=== PATIENT | male | born 1950 | race Caucasian/White ===

== ENCOUNTER → 2018-04-10 09:09 | Outpatient (CLI) | payer MEDICARE, OTHER, SELFPAY ==
[2018-04-10 10:37] LABS: Alanine Aminotransferase 41 IU/L (21-72); Albumin 4.3 g/dL (3.5-5.0); Albumin Globulin Ratio 1.5 (1.0-2.8); Alkaline Phosphatase 64 U/L (38-126); Aspartate Aminotransferase 35 IU/L (17-59); BUN Creatinine Ratio 22.9 (6-22); Bilirubin Total 0.8 mg/dL (0.2-1.3); Blood Urea Nitrogen 16 mg/dL (9-20); Calcium 9.3 mg/dL (8.4-10.2); Carbon Dioxide 34 mmol/L (22-32); Chloride 98 mmol/L (98-107); Cholesterol 138 mg/dL (140-199); Estimated Glomerular Filt Rate > 60.0 mL/min (>60); Globulin 2.8 g/dL (1.7-4.1); Glucose 129 mg/dL (80-110); HDL Cholesterol 37 mg/dL (40-60); HEMOLYSIS < 15 (0-50); LDL Cholesterol Calculated 81 mg/dL (<100); Potassium 4.2 mmol/L (3.4-5.1); Sodium 142 mmol/L (137-145); Total Protein 7.1 g/dL (6.3-8.2); Triglycerides 98 mg/dL (35-150)
[2018-04-10 10:44] LABS: Hemoglobin A1C% w Est Avg Glu 5.5 % (4.0-6.0)
== END ==
PROVIDERS: Visit Provider Internal Medicine
DX: I10 Essential (primary) hypertension (principal); E11.22 Type 2 diabetes mellitus with diabetic chronic kidney disease; E78.00 Pure hypercholesterolemia, unspecified
CPT/HCPCS: 36415; 80053; 80061; 83036

== ENCOUNTER → 2018-11-06 08:04 | Outpatient (CLI) | payer MEDICARE, OTHER, SELFPAY ==
[2018-11-06 09:25] LABS: Hemoglobin A1C% w Est Avg Glu 5.5 % (4.0-6.0)
[2018-11-06 09:41] LABS: Alanine Aminotransferase 33 IU/L (21-72); Aspartate Aminotransferase 41 IU/L (17-59); BUN Creatinine Ratio 24.3 (6-22); Blood Urea Nitrogen 17 mg/dL (9-20); Calcium 9.5 mg/dL (8.4-10.2); Carbon Dioxide 35 mmol/L (22-32); Chloride 97 mmol/L (98-107); Cholesterol 143 mg/dL (140-199); Estimated Glomerular Filt Rate > 60.0 mL/min (>60); Glucose 107 mg/dL (80-110); HDL Cholesterol 42 mg/dL (40-60); HEMOLYSIS < 15 (0-50); LDL Cholesterol Calculated 78 mg/dL (<100); Potassium 4.9 mmol/L (3.4-5.1); Sodium 141 mmol/L (137-145); Triglycerides 117 mg/dL (35-150)
== END ==
PROVIDERS: PCP Internal Medicine; Visit Provider Internal Medicine
DX: I10 Essential (primary) hypertension (principal); E11.9 Type 2 diabetes mellitus without complications; E78.5 Hyperlipidemia, unspecified
CPT/HCPCS: 36415; 80048; 80061; 83036; 84450; 84460

== ENCOUNTER → 2019-05-25 08:23 | Outpatient (CLI) | payer MEDICARE, OTHER, SELFPAY ==
[2019-05-25 09:03] LABS: Hemoglobin A1C% w Est Avg Glu 5.9 % (4.0-6.0)
[2019-05-25 09:07] LABS: Alanine Aminotransferase 41 IU/L (<50); Aspartate Aminotransferase 42 IU/L (17-59); BUN Creatinine Ratio 22.5 (6-22); Blood Urea Nitrogen 18 mg/dL (9-20); Carbon Dioxide 34 mmol/L (22-32); Chloride 96 mmol/L (98-107); Cholesterol 129 mg/dL (140-199); Estimated Glomerular Filt Rate > 60.0 mL/min (>60); Glucose 132 mg/dL (80-110); HDL Cholesterol 28 mg/dL (40-60); HEMOLYSIS < 15 (0-50); LDL Cholesterol Calculated 80 mg/dL (<100); Potassium 4.4 mmol/L (3.4-5.1); Sodium 141 mmol/L (137-145); Triglycerides 103 mg/dL (35-150)
== END ==
PROVIDERS: PCP Internal Medicine; Visit Provider Internal Medicine
DX: I10 Essential (primary) hypertension (principal); E11.9 Type 2 diabetes mellitus without complications; E78.5 Hyperlipidemia, unspecified
CPT/HCPCS: 36415; 80048; 80061; 83036; 84450; 84460

== ENCOUNTER → 2019-10-13 08:59 | Outpatient (CLI) | payer MEDICARE, OTHER, SELFPAY ==
[2019-10-13 11:28] LABS: Prostate Specific Antigen 3.07 ng/mL (0.10-4.00)
== END ==
PROVIDERS: PCP Internal Medicine; Referring Provider Radiology Radiation Oncology; Visit Provider Radiology Radiation Oncology
DX: C61 Malignant neoplasm of prostate (principal)
CPT/HCPCS: 36415; 84153

== ENCOUNTER → 2019-11-25 08:01 | Outpatient (CLI) | payer MEDICARE, OTHER, SELFPAY ==
[2019-11-25 10:04] LABS: Hemoglobin A1C% w Est Avg Glu 5.8 % (4.0-6.0)
[2019-11-25 10:08] LABS: Alanine Aminotransferase 39 IU/L (<50); Albumin 4.5 g/dL (3.5-5.0); Albumin Globulin Ratio 1.5 (1.0-2.8); Alkaline Phosphatase 76 U/L (38-126); Aspartate Aminotransferase 46 IU/L (17-59); BUN Creatinine Ratio 23.4 (6-22); Bilirubin Total 1.2 mg/dL (0.2-1.3); Blood Urea Nitrogen 18 mg/dL (9-20); Calcium 9.5 mg/dL (8.4-10.2); Carbon Dioxide 35 mmol/L (22-32); Chloride 97 mmol/L (98-107); Cholesterol 135 mg/dL (140-199); Estimated Glomerular Filt Rate > 60.0 mL/min (>60); Globulin 3.1 g/dL (1.7-4.1); Glucose 124 mg/dL (80-110); HDL Cholesterol 32 mg/dL (40-60); HEMOLYSIS 34 (0-50); LDL Cholesterol Calculated 67 mg/dL (<100); Potassium 4.2 mmol/L (3.4-5.1); Sodium 138 mmol/L (137-145); Total Protein 7.6 g/dL (6.3-8.2); Triglycerides 179 mg/dL (35-150)
== END ==
PROVIDERS: PCP Internal Medicine; Referring Provider Internal Medicine; Visit Provider Internal Medicine
DX: E78.5 Hyperlipidemia, unspecified (principal); I10 Essential (primary) hypertension; E11.9 Type 2 diabetes mellitus without complications
CPT/HCPCS: 36415; 80053; 80061; 83036

== ENCOUNTER → 2020-03-30 08:06 | Outpatient (CLI) | payer MEDICARE, OTHER, SELFPAY ==
[2020-03-30 10:08] LABS: Prostate Specific Antigen 2.05 ng/mL (0.10-4.00)
== END ==
PROVIDERS: PCP Internal Medicine; Referring Provider Radiology Radiation Oncology; Visit Provider Radiology Radiation Oncology
DX: C61 Malignant neoplasm of prostate (principal)
CPT/HCPCS: 36415; 84153

== ENCOUNTER → 2020-10-03 08:33 | Outpatient (CLI) | payer MEDICARE, OTHER, SELFPAY ==
[2020-10-03 09:44] LABS: Prostate Specific Antigen 1.48 ng/mL (0.10-4.00)
== END ==
PROVIDERS: PCP Internal Medicine; Referring Provider Radiology Radiation Oncology; Visit Provider Radiology Radiation Oncology
DX: C61 Malignant neoplasm of prostate (principal)
CPT/HCPCS: 36415; 84153

== ENCOUNTER → 2021-02-28 12:32 | Outpatient (CLI) | payer MEDICARE, OTHER, SELFPAY | PROVIDERS: PCP Internal Medicine; Referring Provider Radiology Radiation Oncology; Visit Provider Radiology Radiation Oncology | DX: C61 Malignant neoplasm of prostate (principal) | CPT/HCPCS: 36415; 84153 ==

== ENCOUNTER 2022-04-09 10:15 | Emergency (ER) | payer MEDICARE, OTHER, SELFPAY ==
[2022-04-09] VITALS (12 sets, daily range): BP systolic 117–159; BP diastolic 58–85; PULSE 67–88; RESP 16–18; TEMP 36.6; O2SAT 92–99; BMI 34.7
--- NOTE | 2022-04-09 11:19 | DI.CT.S_ITS ---
PROCEDURE: CT ABDOMEN PELVIS WO/W CON INDICATIONS: painless hematuria TECHNIQUE: Optional 5 mm thick noncontrast images acquired from the diaphragm to the symphysis pubis. After the administration of intravenous contrast, 5 mm thick images acquired from the diaphragm to the symphysis pubis after a 10-minute delay. 2 mm thick coronal and sagittal reformats were then performed of the kidneys and ureters. For radiation dose reduction, the following was used: automated exposure control, adjustment of mA and/or kV according to patient size. COMPARISON: [facility], CT, CT DIANE, 04/21/2019, 13:00. [facility], CT, PE STUDY (CTA CHEST), 08/17/2012, 11:05. FINDINGS: Image quality: Excellent. Lung bases: Bibasilar atelectasis versus scarring. Moderate to severe coronary artery calcifications. Urinary system: Both kidneys are normal in size, without hydronephrosis or nephrolithiasis on pre-contrast images. No perinephric fat stranding. There is normal bilateral renal enhancement. Renal calyces appear normal in morphology when filled with contrast. Opacified portions of both ureters demonstrate normal caliber. The prostate is enlarged. A Franklin catheter is present in the bladder. There is diffuse bladder wall thickening. Other solid organs: Liver is normal in size and enhancement. Gallbladder is surgically absent . Biliary system is non dilated. Pancreas enhances normally. Spleen is normal in size and enhancement. No adrenal nodules. Peritoneum and bowel: Bowel loops demonstrate normal wall thickness and caliber. No free fluid or air. Nodes and vessels: No retroperitoneal or mesenteric adenopathy by size criteria. Aorta and inferior vena cava are normal in size. Abdominal wall: No ventral hernias. Pelvis: No pathologic free pelvic fluid. No inguinal hernias or adenopathy. Bones: No suspicious bony lesions. No vertebral body compression fractures. IMPRESSION: 1. Enlarged prostate with Franklin catheter in the bladder. The bladder is decompressed with diffuse bladder wall thickening. There are inflammatory change in the adjacent fat. Findings are consistent with cystitis, potentially chronic. 2. No renal stones, ureteral stones, hydronephrosis, or renal masses. 3. Moderately severe coronary artery calcifications. Dictated by: Balta Evans M.D. on 04/09/2022 at 14:46 Approved by: Balta Evans M.D. on 04/09/2022 at 14:51
[2022-04-09] MEDS: LIDOCAINE 2% (GLYDO) 6 ML GEL TOP (11:33)
[2022-04-09 11:37] LABS: Add Manual Diff / Slide Review NO; Basophils Absolute Auto 0 /uL (0-100); Basophils Percent Auto 0.2 % (0-2); Eosinophils Absolute Auto 200 /uL (0-450); Eosinophils Percent Auto 3.4 % (2-4); Hematocrit 40.8 % (41-53); Hemoglobin 13.5 g/dL (13.5-17.5); Lymphocytes Absolute Auto 800 /uL (1100-4500); Lymphocytes Percent Auto 11.9 % (25-40); Mean Corpuscular HGB Conc 33.2 % (30-36); Mean Corpuscular Hemoglobin 31.2 PG (26-34); Mean Corpuscular Volume 94.1 fL (80-100); Monocytes Absolute Auto 400 /uL (0-900); Monocytes Percent Auto 5.6 % (3-14); Neutrophils Absolute Auto 5000 /uL (1500-7000); Neutrophils Percent Auto 78.9 % (50-75); Platelet Count 205 X10^3/uL (150-400); Red Blood Cell Count 4.34 X10^6/uL (4.5-5.9); Red Cell Distribution Width 14.2 % (11.6-14.8); White Blood Cell Count 6.3 X10^3/uL (4.5-11.0)
--- NOTE | 2022-04-09 11:40 | ED_ITS ---
HPI - Male Genitourinary General Chief complaint: Urogenital-Male Stated complaint: peeing blood t-2 Time Seen by Provider: 04/09/22 10:19 Source: patient Mode of arrival: Ambulatory History of Present Illness HPI Narrative: 72-year-old male former smoker with COPD on home oxygen, hypertension, hyperlipidemia and diabetes with prior history of prostate cancer presents with a chief complaint of painless hematuria for the past few days. He states he has been passing nothing but blood clots. He denies fever chills. He is not dizzy nor weak or lightheaded. He denies any chest pain, shortness of breath or cough. He denies any abdominal pain, constipation or diarrhea. He had last received radiation therapy at [facility] for prostate issues but is not currently in touch with Urology. He does not take any blood thinners Related Data Home Medications Medication Instructions Recorded Confirmed albuterol sulfate 90 mcg/actuation 2 puff INH Q4HP ##8.5 12/20/11 aerosol inhaler (Proventil HFA) bupropion HCl 200 mg tablet,12 hr 150 mg PO Q DAY ##0 12/20/11 04/09/22 sustained-release (Wellbutrin SR) lisinopril 10 1 tab PO QDAY ##0 12/20/11 mg-hydrochlorothiazide 12.5 mg tablet atorvastatin 20 mg tablet 20 mg PO BEDTIME 04/09/22 04/09/22 glipizide 10 mg tablet, extended 10 mg PO DAILY 04/09/22 04/09/22 release 24 hr tamsulosin 0.4 mg capsule 0.4 mg PO BEDTIME 04/09/22 04/09/22 Previous Rx's Medication Instructions Recorded cephalexin 500 mg capsule 500 mg PO BID #14 caps 04/09/22 finasteride 5 mg tablet 5 mg PO DAILY #30 tabs 04/09/22 finasteride 5 mg tablet 5 mg PO DAILY #30 tabs 04/09/22 oxybutynin chloride 5 mg tablet 5 mg PO BID-TID PRN bladder spasms 04/09/22 #20 tabs Allergies Allergy/AdvReac Type Severity Reaction Status Date / Time lisinopril Allergy Unknown Verified 04/09/22 11:18 Sulfa (Sulfonamide Allergy Unknown Verified 04/09/22 11:18 Antibiotics) [SULFA (SULFONAMIDE ANTIBIOTICS)] Review of Systems Review of Systems Narrative: GENERAL: Denies chills, fatigue, malaise, fever, sweats. HEENT: Denies sinus pain, ear pain, sore throat, difficulty swallowing, dizziness. RESPIRATORY: Denies dyspnea, cough, wheezing, hemoptysis, sputum. CARDIOVASCULAR: Denies chest pain, palpitations, orthopnea, edema, GASTROINTESTINAL: Denies nausea, vomiting, abdominal pain, diarrhea, constipation, melena. : See HPI MUSCULOSKELETAL: denies weakness, joint pain, or bony pain SKIN: Denies rash, skin lesions, or other NEUROLOGIC: Denies weakness, headache, numbness, change in speech, confusion, seizures, incoordination. PSYCHIATRIC: No concerning psychosocial issues. 12 point review of systems is negative except for those stated above Patient History Medical History (Updated 04/09/22 @ 18:27 by Luigi Soares MD) COPD (chronic obstructive pulmonary disease) Depression Excessive daytime sleepiness History of brachytherapy History of prostate cancer Hypertension Non-STEMI (non-ST elevated myocardial infarction) (~11/2011) Obstructive sleep apnea of adult Primary insomnia Snoring Type 2 diabetes mellitus Social History Smoking Status: Former smoker Smoking Status: Former smoker alcohol intake frequency: 0-2 drinks per day Substance Use Type: does not use Exam Narrative Exam Narrative: GENERAL: [72] year old patient appears stated age. Well-developed patient, in mild distress. HEAD: Atraumatic. Normocephalic. EYES: Pupils equal round and reactive. Extraocular motions intact. No scleral icterus. No injection or drainage. ENT: Nose without bleeding, purulent drainage. Throat without erythema, tonsillar hypertrophy or exudate. Airway patent. NECK: Trachea midline. Non tender CARDIOVASCULAR: Regular rate and rhythm without murmurs, gallops, or rubs. RESPIRATORY: Clear to auscultation. Breath sounds equal bilaterally. No wheezes, rales, or rhonchi. GASTROINTESTINAL: Abdomen soft, non-tender, nondistended. EXTREMITIES: No edema or joint tenderness. BACK: Nontender without deformity or crepitance. No flank tenderness. NEURO: AOx3. SKIN: No rash or erythema of visible areas Initial Vital Signs Initial Vital Signs: Vital Signs Temperature 97.8 F 04/09/22 10:45 Pulse Rate 80 04/09/22 10:45 Respiratory Rate 18 04/09/22 10:45 Blood Pressure 117/65 04/09/22 10:45 Pulse Oximetry 94 04/09/22 10:45 Oxygen Delivery Method 04/09/22 10:45 Oxygen Flow Rate 2 04/09/22 10:45 Course Orders Ordered: ED Orders 04/09/22 11:19 IVP [CT abdomen pelvis wo/w con] Stat 04/09/22 11:25 Complete Blood Count AUTO DIFF Stat Comprehensive Metabolic Panel Stat 04/09/22 11:41 Ictotest Urine Stat UA dip and micro [Urinalysis and Microscopic] Stat Urine Culture Stat Discontinued Medications Ceftriaxone Sodium 2,000 mg/ (Sodium Chloride) 100 mls @ 200 mls/hr IV NOW ONE Stop: 04/09/22 17:29 Last Infusion: 04/09/22 17:54 Dose: 0 mls/hr Documented By: Admin: 04/09/22 16:56 Dose: 200 mls/hr Documented By: DIRK Lidocaine HCl (Lidocaine 2% (Glydo) 6 Ml Gel) 6 ml TOP NOW ONE Stop: 04/09/22 11:20 Last Admin: 04/09/22 11:33 Dose: 6 ml Documented By: DIRK Lidocaine HCl (Lidocaine 2% Inj Mdv 20ml) 1 ml SUBCUT NOW ONE Stop: 04/09/22 16:48 Last Admin: 04/09/22 16:54 Dose: Not Given Documented By: DIRK Lidocaine HCl (Lidocaine 2% (Glydo) 6 Ml Gel) 12 ml TOP NOW ONE Stop: 04/09/22 17:17 Last Admin: 04/09/22 17:55 Dose: 12 ml Documented By: DIRK Lorazepam (Lorazepam 2 Mg/Ml Inj) 1 mg IV NOW ONE Stop: 04/09/22 16:48 Last Admin: 04/09/22 16:54 Dose: Not Given Documented By: DIRK Oxybutynin (Oxybutynin 5 Mg Tablet) 5 mg PO NOW ONE Stop: 04/09/22 18:04 Last Admin: 04/09/22 18:33 Dose: 5 mg Documented By: DIRK Reevaluation(s) Reevaluation #1: Three-way Franklin catheter placed in order to irrigate. Reevaluation #2: Thankfully urine has pinked up a bit, however as soon as we stopped the irrigant his clots occlude the outlet again. He has had 9 L of sterile water Consultations Consultation #1: Dr. Rodger forrest, will see patient at bedside. Please see his note for details Time: 16:33 Vital Signs Vital signs: Vital Signs - 8 hr 04/09/22 12:34 04/09/22 12:36 04/09/22 12:36 Pulse Rate 67 67 Respiratory Rate 16 Blood Pressure 123/68 Pulse Oximetry 97 97 Oxygen Delivery Method Room Air 04/09/22 15:06 04/09/22 15:06 04/09/22 15:30 Pulse Rate 72 Respiratory Rate 16 Blood Pressure 125/58 L 154/71 H Pulse Oximetry 97 Oxygen Delivery Method 04/09/22 16:01 04/09/22 16:30 04/09/22 17:38 Pulse Rate 70 Respiratory Rate 16 Blood Pressure 118/74 126/85 131/64 Pulse Oximetry 99 Oxygen Delivery Method Room Air 04/09/22 17:38 04/09/22 18:00 04/09/22 18:01 Pulse Rate 84 68 70 Respiratory Rate 16 Blood Pressure Pulse Oximetry 92 99 98 Oxygen Delivery Method Room Air 04/09/22 18:01 Pulse Rate Respiratory Rate Blood Pressure 159/72 H Pulse Oximetry Oxygen Delivery Method MDM - Male Genitourinary Lab Data Result diagrams: 04/09/22 11:25 04/09/22 11:25 Labs: Lab Results 04/09/22 04/09/22 04/09/22 Range/Units 11:25 11:25 11:41 WBC 6.3 (4.5-11.0) X10^3/uL RBC 4.34 L (4.5-5.9) X10^6/uL Hgb 13.5 (13.5-17.5) g/dL Hct 40.8 L (41-53) % MCV 94.1 (80-100) fL MCH 31.2 (26-34) PG MCHC 33.2 (30-36) % RDW 14.2 (11.6-14.8) % Plt Count 205 (150-400) X10^3/uL Neut % (Auto) 78.9 H (50-75) % Lymph % (Auto) 11.9 L (25-40) % [place] % (Auto) 5.6 (3-14) % Eos % (Auto) 3.4 (2-4) % Baso % (Auto) 0.2 (0-2) % Neut # (Auto) 5000 (7676-8573) /uL Lymph # (Auto) 800 L (2812-8623) /uL [place] # (Auto) 400 (0-900) /uL Eos # (Auto) 200 (0-450) /uL Baso # (Auto) 0 (0-100) /uL Sodium 142 (137-145) mmol/L Potassium 4.2 (3.4-5.1) mmol/L Chloride 91 L (98-107) mmol/L Carbon Dioxide 39 H (22-32) mmol/L BUN 23 H (9-20) mg/dL Creatinine 0.91 (0.66-1.25) mg/dL Estimated GFR > 60 (>60) mL/min BUN/Creatinine Ratio 25.3 H (6-22) Glucose 139 H (80-110) mg/dL Calcium 9.0 (8.4-10.2) mg/dL Total Bilirubin 0.9 (0.2-1.3) mg/dL AST 29 (17-59) IU/L ALT 32 (<50) IU/L Alkaline Phosphatase 98 (38-126) U/L Total Protein 8.0 (6.3-8.2) g/dL Albumin 4.3 (3.5-5.0) g/dL Globulin 3.7 (1.7-4.1) g/dL Albumin/Globulin Ratio 1.2 (1.0-2.8) Urine Color Red Urine Appearance Turbid Urine pH 6.5 (4.5-8.0) Ur Specific [place] 1.025 (1.000-1.035) Urine Protein 3+ H (Negative) Urine Glucose (UA) Trace H (Negative) g/dL Urine Ketones Trace H (NEGATIVE) Urine Occult Blood 3+ H (Negative) Urine Nitrate Positive H (Negative) Urine Bilirubin 2+ H (NEGATIVE) Ur Bilirubin Confirm Negative (Negative) Urine Urobilinogen 1.0 (0.2) E.U./dL Ur Leukocyte Esterase 1+ H (NEGATIVE) Urine RBC >100/hpf H (0-5/HPF) Urine WBC 5-10/hpf H (0-5/HPF) Urine Bacteria Many (>30) H (None) Ur Culture Indicated? Specimen cultured MDM Narrative Medical decision making narrative: 72-year-old male with history of prostate cancer presents with painless hematuria. Multiple diagnoses considered including urinary tract infection, genitourinary mass, vs other. Patient is hemodynamically stable, urine does show evidence of infection. CT IVP demonstrates inflammatory change of bladder consistent with cystitis and of prostate, no evidence of active bleed or clot within the bladder. Serum labs are unremarkable. Patient initially had 18 Spanish three-way with irrigation of upwards of 9 L of sterile water, urology consulted and saw patient at bedside. They have a plan to see him in the office in short order. He is given return precautions by Urology and understands this plan Discharge Plan Departure Patient Disposition: Home Clinical Impression: Hematuria UTI (urinary tract infection) Qualifiers: Urinary tract infection type: acute cystitis Hematuria presence: with hematuria Qualified Code(s): N30.01 - Acute cystitis with hematuria Instructions: DI for Hematuria Activity Restrictions/Additional Instructions: *You have been diagnosed with [hematuria] *What to do: *Please continue to take your regular medications as directed. *Please follow up with your primary care provider in 2-3 days, call for an appointment. Let them know you were seen in the Emergency Department and that we ask that you be seen in follow up. We will electronically transmit a record of today's note if your PCP is in our system * as we discussed, I have given you contact information for local urology please call them today or tomorrow, let them know you were seen in the emergency dep artment and we would like you seen in follow-up *Return to Emergency Department if you should have any new, worsening or concerning symptoms, such as [fever greater than 101 F, shaking chills, worse apoorva pain, persistent vomiting or other bothersome symptoms] Prescriptions: New finasteride 5 mg tablet 5 mg PO DAILY Qty: 30 0RF cephalexin 500 mg capsule 500 mg PO BID Qty: 14 0RF finasteride 5 mg tablet 5 mg PO DAILY Qty: 30 0RF oxybutynin chloride 5 mg tablet 5 mg PO BID-TID PRN (Reason: bladder spasms) Qty: 20 0RF No Action lisinopril-hydrochlorothiazide 10 MG/12.5 MG tablet 1 tab PO QDAY Qty: 0 bupropion HCl [Wellbutrin SR] 200 MG tablet extended release 12 hr 150 mg PO Q DAY Qty: 0 albuterol sulfate [Proventil HFA] 90 MCG/PUFF HFA aerosol inhaler 2 puff INH Q4HP Qty: 8.5 tamsulosin 0.4 mg capsule 0.4 mg PO BEDTIME Label Comments: TAKE ONE CAPSULE BY MOUTH AT BEDTIME atorvastatin 20 mg tablet 20 mg PO BEDTIME Label Comments: TAKE ONE TABLET BY MOUTH ONE TIME DAILY glipizide 10 mg tablet extended release 24hr 10 mg PO DAILY Label Comments: TAKE ONE TABLET BY MOUTH ONE TIME DAILY Referrals: Miscellaneous,Doctor, [Primary Care Provider] - Luigi Soares MD [Physician] - Visit Report Forms: Patient Portal/API
[2022-04-09 12:31] LABS: Appearance Urine UA TURBID; Bilirubin Urine UA 2+ (NEGATIVE); Glucose Urine UA TRACE g/dL (Negative); Ketones Urine UA TRACE (NEGATIVE); Leukocyte Esterase Urine UA 1+ (NEGATIVE); Nitrite Urine UA POSITIVE (Negative); Occult Blood Urine UA 3+ (Negative); Protein Urine UA 3+ (Negative); Specific Gravity Urine UA 1.025 (1.000-1.035); pH Urine UA 6.5 (4.5-8.0)
[2022-04-09 12:36] LABS: Bacteria Urine Many (>30); Color Urine UA RED; Culture Indicated Urine Specimen Cultured; Ictotest Urine Negative (Negative); RBC Urine >100/HPF (0-5/HPF); WBC Urine 5-10/HPF (0-5/HPF)
[2022-04-09 12:54] LABS: BUN Creatinine Ratio 25.3 (6-22); Bilirubin Total 0.9 mg/dL (0.2-1.3); Blood Urea Nitrogen 23 mg/dL (9-20); Carbon Dioxide 39 mmol/L (22-32); Chloride 91 mmol/L (98-107); Estimated Glomerular Filt Rate > 60 mL/min (>60); Glucose 139 mg/dL (80-110); HEMOLYSIS < 15 (0-50); Potassium 4.2 mmol/L (3.4-5.1); Sodium 142 mmol/L (137-145)
[2022-04-09 12:55] LABS: Alanine Aminotransferase 32 IU/L (<50); Albumin 4.3 g/dL (3.5-5.0); Albumin Globulin Ratio 1.2 (1.0-2.8); Alkaline Phosphatase 98 U/L (38-126); Aspartate Aminotransferase 29 IU/L (17-59); Globulin 3.7 g/dL (1.7-4.1)
--- NOTE | 2022-04-09 12:58 | PC.NURSE ---
Answered call fernandes, pt c/o pain and leaking around catheter site. Noted clot in catheter. Hand expressed w/ syringe large clot x 3. Irrigation resumed w/o difficulty.
--- NOTE | 2022-04-09 13:13 | PC.NURSE ---
Again catheter blocked by large clots. Hand expressed w/ catheter tip syringe for large clots. Restarted irrigation w/ increased flow noted out of catheter.
--- NOTE | 2022-04-09 16:43 | PC.NURSE ---
Bladder irrigation off. Catheter clotted off causing discomfort. Hand irrigated large clot. Bladder irrigation started. Pain relieved after clot removed.
[2022-04-09] MEDS: cefTRIAXone 2,000 MG in SODIUM CHLORIDE 0.9% 100 ML 200 MG IV (16:56)
[2022-04-09] MEDS: LIDOCAINE 2% (GLYDO) 6 ML GEL 12 ML TOP (17:55)
--- NOTE | 2022-04-09 18:11 | PC.NURSE ---
#[address] removed [address] Soares (Urology) who then placed 24 fr w/ 30 cc balloon. He irrigated and positioned to stop bleeding. Pt tolerated well.
--- NOTE | 2022-04-09 18:18 | PM.CN ---
History of Present Illness Consult details Date Patient Seen: 04/09/22 Time Patient Seen: 18:18 Chief complaint: peeing blood t-2 Reason for consult: Bladder irrigation unable to clear clots Requesting provider: Omero Torres Narrative: Was asked to come see this 72-year-old male who presented with complaints of being unable to urinate and having gross hematuria with clots. Patient reports this is been going on for quite some time he is only been able to urinate a little bit. He presented to the emergency department with complaint of lower abdominal pain and had an 18 [place] catheter inserted by staff and was irrigated. This would then clot up. By report today it irrigated with 9 L of sterile water. Patient has a history of prostate carcinoma treated by brachytherapy approximately 2 years ago. He reports his most recent PSA was less than 0.069. He is followed by radiation oncology at [facility]. Patient has never had anything like this before and denies any heavy vigorous or strenuous activity. He also denies any constipation or straining. Patient takes a will 81 mg aspirin but is not on any other anticoagulants. His urine does appear infected and he would received a dose of Rocephin. Patient denies any other surgery on the penis testicles prostate or bladder. Patient also denies history of kidney stones. Patient did have a CT scan which is reviewed and reviewed with the patient which shows no worrisome findings for occult malignancy within the bladder and only changes consistent with radiation, cystitis and perhaps some clot within the bladder. The patient's 18 [place] catheter was exchanged for a 24 [place] catheter with sterile technique instilling viscous lidocaine within the urethra and allowing time for the block to set up. Once the catheter was in place it was a 30 cc balloon was inflated with 30 cc of sterile water. Sterile water was then employed to irrigate the bladder and a small amount of clot was evacuated and then the urine cleared quite quickly. The catheter was placed to gravity drainage and a blush urine was noted at that point it was re-irrigated placed to gentle traction. It was then observed for approximately 20 minutes and remained at minimum very light pink but clear no clots. Meds Home Medications and Allergies Home Medications Medication Instructions Recorded Confirmed Type albuterol sulfate 90 mcg/actuation 2 puff INH Q4HP ##8.5 12/20/11 History aerosol inhaler (Proventil HFA) bupropion HCl 200 mg tablet,12 hr 150 mg PO Q DAY ##0 12/20/11 04/09/22 History sustained-release (Wellbutrin SR) lisinopril 10 1 tab PO QDAY ##0 12/20/11 History mg-hydrochlorothiazide 12.5 mg tablet atorvastatin 20 mg tablet 20 mg PO BEDTIME 04/09/22 04/09/22 History cephalexin 500 mg capsule 500 mg PO BID #14 caps 04/09/22 Rx finasteride 5 mg tablet 5 mg PO DAILY #30 tabs 04/09/22 Rx finasteride 5 mg tablet 5 mg PO DAILY #30 tabs 04/09/22 Rx glipizide 10 mg tablet, extended 10 mg PO DAILY 04/09/22 04/09/22 History release 24 hr oxybutynin chloride 5 mg tablet 5 mg PO BID-TID PRN bladder spasms 04/09/22 Rx #20 tabs tamsulosin 0.4 mg capsule 0.4 mg PO BEDTIME 04/09/22 04/09/22 History Allergies Allergy/AdvReac Type Severity Reaction Status Date / Time lisinopril Allergy Unknown Verified 04/09/22 11:18 Sulfa (Sulfonamide Allergy Unknown Verified 04/09/22 11:18 Antibiotics) [SULFA (SULFONAMIDE ANTIBIOTICS)] Review of Systems Review of Systems ROS: Yes All systems reviewed with the patient and are negative except as otherwise documented (And problem list) Exam Vital Signs (past 8 hours): - 04/09/22 10:45 04/09/22 11:10 04/09/22 11:11 Temperature 97.8 F Pulse Rate 80 88 Respiratory Rate 18 Blood Pressure 117/65 117/65 Pulse Oximetry 94 94 Oxygen Delivery Method Nasal Cannula Oxygen Flow Rate 2 04/09/22 11:11 04/09/22 12:34 04/09/22 12:36 Temperature Pulse Rate 84 67 67 Respiratory Rate 16 Blood Pressure Pulse Oximetry 96 97 97 Oxygen Delivery Method Nasal Cannula Room Air Oxygen Flow Rate 2 04/09/22 12:36 04/09/22 15:06 04/09/22 15:06 Temperature Pulse Rate 72 Respiratory Rate 16 Blood Pressure 123/68 125/58 L Pulse Oximetry 97 Oxygen Delivery Method Oxygen Flow Rate 04/09/22 15:30 04/09/22 16:01 04/09/22 16:30 Temperature Pulse Rate 70 Respiratory Rate 16 Blood Pressure 154/71 H 118/74 126/85 Pulse Oximetry 99 Oxygen Delivery Method Room Air Oxygen Flow Rate 04/09/22 17:38 04/09/22 17:38 04/09/22 18:00 Temperature Pulse Rate 84 68 Respiratory Rate Blood Pressure 131/64 Pulse Oximetry 92 99 Oxygen Delivery Method Oxygen Flow Rate 04/09/22 18:01 04/09/22 18:01 Temperature Pulse Rate 70 Respiratory Rate 16 Blood Pressure 159/72 H Pulse Oximetry 98 Oxygen Delivery Method Room Air Oxygen Flow Rate Oxygen Delivery Method Room Air Oxygen Flow Rate 2 Narrative Exam Narrative: General: This is an awake, alert, oriented, bearded, tattooed male wearing corrective lenses who is resting in bed with nasal cannula in place and very minimally labored breathing. He does appear slightly uncomfortable. Lungs: Coarse breath sounds Cardiovascular exam: Regular rate and rhythm Abdominal exam: Soft, nontender, without palpable mass Genitourinary exam: Circumcised male, normal penis, normal testes, normal epididymis, normal cord structures, normal scrotum. Franklin catheter in place. Rectal exam: Deferred as not indicated at present. Neurologic exam: Grossly intact Objective Labs Result Diagrams: 04/09/22 11:25 04/09/22 11:25 Labs: Laboratory Results - last 24 hr 04/09/22 04/09/22 04/09/22 11:25 11:25 11:41 WBC 6.3 RBC 4.34 L Hgb 13.5 Hct 40.8 L MCV 94.1 MCH 31.2 MCHC 33.2 RDW 14.2 Plt Count 205 Neut % (Auto) 78.9 H Lymph % (Auto) 11.9 L [place] % (Auto) 5.6 Eos % (Auto) 3.4 Baso % (Auto) 0.2 Neut # (Auto) 5000 Lymph # (Auto) 800 L [place] # (Auto) 400 Eos # (Auto) 200 Baso # (Auto) 0 Sodium 142 Potassium 4.2 Chloride 91 L Carbon Dioxide 39 H BUN 23 H Creatinine 0.91 Estimated GFR > 60 BUN/Creatinine Ratio 25.3 H Glucose 139 H Calcium 9.0 Total Bilirubin 0.9 AST 29 ALT 32 Alkaline Phosphatase 98 Total Protein 8.0 Albumin 4.3 Globulin 3.7 Albumin/Globulin Ratio 1.2 Urine Color Red Urine Appearance Turbid Urine pH 6.5 Ur Specific [place] 1.025 Urine Protein 3+ H Urine Glucose (UA) Trace H Urine Ketones Trace H Urine Occult Blood 3+ H Urine Nitrate Positive H Urine Bilirubin 2+ H Ur Bilirubin Confirm Negative Urine Urobilinogen 1.0 Ur Leukocyte Esterase 1+ H Urine RBC >100/hpf H Urine WBC 5-10/hpf H Urine Bacteria Many (>30) H Ur Culture Indicated? Specimen cultured [facility] Medical History (Updated 04/09/22 @ 18:27 by Luigi Soares MD) COPD (chronic obstructive pulmonary disease) Depression Excessive daytime sleepiness History of brachytherapy History of prostate cancer Hypertension Non-STEMI (non-ST elevated myocardial infarction) (~11/2011) Obstructive sleep apnea of adult Primary insomnia Snoring Type 2 diabetes mellitus Tobacco & Substance Use Smoking Status: Former smoker Assessment & Plan Assessment and plan (1) Gross hematuria: Status: Acute (2) Urinary retention: Problem details: Secondary to clot Status: Acute (3) History of prostate cancer: Status: Acute (4) History of brachytherapy: Status: Acute (5) UTI (urinary tract infection): Qualifiers: Urinary tract infection type: acute cystitis Hematuria presence: with hematuria Qualified Code(s): N30.01 - Acute cystitis with hematuria Status: Acute (6) Irradiation cystitis with hematuria: Status: Acute Plan Assessment and plan: Gross hematuria possibly secondary to radiation cystitis or urinary tract infection. This is resulted in some degree of urinary retention. The patient has been irrigated to clear and has a [address] that is add gentle traction. 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 Plan: 1. Patient could be discharged to home with this Franklin catheter in place and gentle traction. He is to call my office in the morning with an update and for recommendations and further plans. 2. Patient was having some bladder spasm and will be given an oxybutynin 5 mg prior to discharge. He is also to be started on finasteride 5 mg and this is to be continued daily. 3. Urinary tract infection patient has been given some Rocephin I would recommend the patient go home on a fluoroquinolone until the culture results come back. 4. Prostate cancer treated by brachytherapy. Patient reports a undetectable PSA. And I doubt that this is playing a role that is recurrent prostate cancer is playing any role in his current clinical situation. Plan was discussed with the patient and he appeared comfortable with it was also discussed directly with Dr. Torres. Time Spent With Patient Time with patient: 50 to 69 minutes with 50% spent counseling/coordinating care Critical Care time: I spent a total of [] minutes of critical care time on this patient's care today; this time is exclusive of procedural time.
[2022-04-09] MEDS: OXYBUTYNIN 5 MG TABLET PO (18:33)
== END 2022-04-09 18:51 | disposition home or self-care (01) ==
PROVIDERS: Emergency Provider Emergency Medicine
DX: N30.01 Acute cystitis with hematuria (principal); Z85.46 Personal history of malignant neoplasm of prostate; Z79.899 Other long term (current) drug therapy
CPT/HCPCS: 36415; 74178; 80053; 81001; 85025; 87086; 96365; 99284; 99285; J0696

== ENCOUNTER 2022-04-10 04:01 | Emergency (ER) | payer MEDICARE, OTHER, SELFPAY ==
[2022-04-10] VITALS (7 sets, daily range): BP systolic 108–154; BP diastolic 62–70; PULSE 71–89; RESP 18; TEMP 37.2; O2SAT 91–95; BMI 34.7
--- NOTE | 2022-04-10 04:30 | PC.NURSE ---
pt c/o pain with cole that was present upon arrival, states blood returned after being d/c from ed yesterday and having it irrigated
--- NOTE | 2022-04-10 04:46 | ED_ITS ---
HPI - Male Genitourinary General Chief complaint: Urogenital-Male Stated complaint: Blood in catheter Time Seen by Provider: 04/10/22 04:24 Mode of arrival: EMS History of Present Illness HPI Narrative: Patient is a 72-year-old male history of COPD on home O2 presenting with gross hematuria. He was seen evaluated yesterday for the same. He had 9 L of sterile water irrigated. Required urology intervention. Patient says the soon as he went home he started having pain. It started bleeding again. He denies any dizziness lightheadedness no shortness of breath. Related Data Home Medications Medication Instructions Recorded Confirmed albuterol sulfate 90 mcg/actuation 2 puff INH Q4HP ##8.5 12/20/11 aerosol inhaler (Proventil HFA) bupropion HCl 200 mg tablet,12 hr 150 mg PO Q DAY ##0 12/20/11 04/09/22 sustained-release (Wellbutrin SR) lisinopril 10 1 tab PO QDAY ##0 12/20/11 mg-hydrochlorothiazide 12.5 mg tablet atorvastatin 20 mg tablet 20 mg PO BEDTIME 04/09/22 04/09/22 glipizide 10 mg tablet, extended 10 mg PO DAILY 04/09/22 04/09/22 release 24 hr tamsulosin 0.4 mg capsule 0.4 mg PO BEDTIME 04/09/22 04/09/22 Previous Rx's Medication Instructions Recorded cephalexin 500 mg capsule 500 mg PO BID #14 caps 04/09/22 finasteride 5 mg tablet 5 mg PO DAILY #30 tabs 04/09/22 finasteride 5 mg tablet 5 mg PO DAILY #30 tabs 04/09/22 oxybutynin chloride 5 mg tablet 5 mg PO BID-TID PRN bladder spasms 04/09/22 #20 tabs hydrocodone 5 mg-acetaminophen 325 1 tab PO Q6H PRN pain #10 tabs 04/10/22 mg tablet Allergies Allergy/AdvReac Type Severity Reaction Status Date / Time lisinopril Allergy Unknown Verified 04/09/22 11:18 Sulfa (Sulfonamide Allergy Unknown Verified 04/09/22 11:18 Antibiotics) [SULFA (SULFONAMIDE ANTIBIOTICS)] Review of Systems Review of Systems Narrative: GENERAL: Denies chills,fever HEENT: Denies throat pain RESPIRATORY: Denies dyspnea, cough, wheezing CARDIOVASCULAR: Denies chest pain, palpitations GASTROINTESTINAL: Denies nausea, vomiting : See HPI MUSCULOSKELETAL: Denies extremity pain, injury SKIN: No rash, no laceration, no pruritus NEUROLOGIC: Denies weakness, dizziness, headache, numbness 8 point review of systems is negative except for those stated above and HPI Patient History Medical History (Updated 04/10/22 @ 08:07 by Gretchen Lubin DO) COPD (chronic obstructive pulmonary disease) Depression Excessive daytime sleepiness History of brachytherapy History of prostate cancer Hypertension Non-STEMI (non-ST elevated myocardial infarction) (~11/2011) Obstructive sleep apnea of adult Primary insomnia Snoring Type 2 diabetes mellitus Social History Smoking Status: Former smoker Smoking Status: Former smoker alcohol intake frequency: 0-2 drinks per day Substance Use Type: does not use Exam Initial Vital Signs Initial Vital Signs: Vital Signs Temperature 98.9 F 04/10/22 04:14 Pulse Rate 89 04/10/22 04:14 Respiratory Rate 18 04/10/22 04:14 Blood Pressure 108/67 04/10/22 04:14 Pulse Oximetry 91 04/10/22 04:14 Oxygen Delivery Method 04/10/22 04:14 GENERAL: Alert pleasant 72-year-old male and in no acute distress. HEENT: Head atraumatic,EOMI, pupils reactive, face symmetric, moist mucous membranes CARDIOVASCULAR: Regular rate and rhythm without murmurs, rubs or gallops. RESPIRATORY: Breath sounds equal bilaterally, no wheezes rales or rhonchi. ABDOMEN: Soft, nontender. Normoactive bowel sounds all 4 quadrants. No guarding or rebound. : Franklin in place gross blood EXTREMITIES: Normal range of motion, no clubbing or edema. Neurovascularly intact NEUROLOGICAL: Alert and oriented x4. SKIN: Warm, dry, no laceration, no petechiae, no rashes or lesions. Course Orders Ordered: ED Orders 04/10/22 05:35 CBC Auto Diff [Complete Blood Count AUTO DIFF] Stat CMP [Comprehensive Metabolic Panel] Stat 04/10/22 07:19 COVID19 -Nasal RAPID/Pre-Proc Stat Discontinued Medications Hydromorphone HCl (Hydromorphone 0.5 Mg Inj) 0.5 mg IV NOW ONE Stop: 04/10/22 05:30 Last Admin: 04/10/22 05:46 Dose: 0.5 mg Documented By: MELISSA Vital Signs Vital signs: Vital Signs - 8 hr 04/10/22 04:14 04/10/22 06:04 04/10/22 06:30 Temperature 98.9 F Pulse Rate 89 71 85 Respiratory Rate 18 18 Blood Pressure 108/67 132/62 Pulse Oximetry 91 94 91 Oxygen Delivery Method Nasal Cannula Nasal Cannula Oxygen Flow Rate 2 04/10/22 07:00 04/10/22 07:21 04/10/22 07:21 Temperature Pulse Rate 84 81 Respiratory Rate 18 Blood Pressure 136/63 Pulse Oximetry 93 93 Oxygen Delivery Method Oxygen Flow Rate 04/10/22 07:30 04/10/22 07:30 Temperature Pulse Rate 83 Respiratory Rate Blood Pressure 140/64 Pulse Oximetry 93 Oxygen Delivery Method Oxygen Flow Rate MDM - Male Genitourinary Lab Data Result diagrams: 04/10/22 05:35 04/10/22 05:35 Labs: Lab Results 04/10/22 04/10/22 04/10/22 Range/Units 05:35 05:35 07:19 WBC 8.7 (4.5-11.0) X10^3/uL RBC 3.89 L (4.5-5.9) X10^6/uL Hgb 12.1 L (13.5-17.5) g/dL Hct 35.9 L (41-53) % MCV 92.1 (80-100) fL MCH 31.1 (26-34) PG MCHC 33.8 (30-36) % RDW 14.1 (11.6-14.8) % Plt Count 170 (150-400) X10^3/uL Neut % (Auto) 82.5 H (50-75) % Lymph % (Auto) 7.6 L (25-40) % [place] % (Auto) 8.7 (3-14) % Eos % (Auto) 0.8 L (2-4) % Baso % (Auto) 0.4 (0-2) % Neut # (Auto) 7200 H (1211-2767) /uL Lymph # (Auto) 700 L (8782-5450) /uL [place] # (Auto) 800 (0-900) /uL Eos # (Auto) 100 (0-450) /uL Baso # (Auto) 0 (0-100) /uL Sodium 136 L (137-145) mmol/L Potassium 4.2 (3.4-5.1) mmol/L Chloride 91 L (98-107) mmol/L Carbon Dioxide 39 H (22-32) mmol/L BUN 18 (9-20) mg/dL Creatinine 0.79 (0.66-1.25) mg/dL Estimated GFR > 60 (>60) mL/min BUN/Creatinine Ratio 22.8 H (6-22) Glucose 130 H (80-110) mg/dL Calcium 8.5 (8.4-10.2) mg/dL Total Bilirubin 1.4 H (0.2-1.3) mg/dL AST 28 (17-59) IU/L ALT 26 (<50) IU/L Alkaline Phosphatase 82 (38-126) U/L Total Protein 6.8 (6.3-8.2) g/dL Albumin 3.6 (3.5-5.0) g/dL Globulin 3.2 (1.7-4.1) g/dL Albumin/Globulin Ratio 1.1 (1.0-2.8) SARS-CoV-2 (PCR) Negative (Negative) MDM Narrative Medical decision making narrative: Dr. Soares in emergency department. At this time Franklin was irrigated is drinking serosanguineous. Recommend adjusting catheter placement on the leg. Recommend pain medication and outpatient follow-up. Blood work is overall stable. At this time no need for admission Discharge Plan Departure Patient Disposition: Home Clinical Impression: Hematuria Instructions: DI for Hematuria Activity Restrictions/Additional Instructions: *You have been diagnosed with hematuria *What to do: At this time please follow-up urology. Keep Franklin catheter in place. Irrigate if needed. *Continue to take medications as directed [place] 1 tablet every 6 hours if needed for severe pain *Follow up with your primary care provider in 2-3 days or call [phone] Follow-up with Dr. Soares, call tomorrow to schedule appoint *Return to ER if you should have [place] catheter not working gross blood or any new, worsening or concerning symptoms CONTROLLED SUBSTANCE DISCHARGE (Narcotoic/benzodiazepine/Flexeril/Phenergan) 1. You have been prescribed narcotic medications, it does have acetaminophen/Tylenol/paracetamol in it, DO NOT TAKE MORE THAN 4,00mg in 24 hours of Tylenol. TRAMADOL DOES NOT CONTAIN TYLENOL 2. Please understand that we cannot provide further refills of narcotics, benzodiazepines or controlled substances through the ED and her pain management will need to be through your provider. 3. While on these medications you cannot drive or operate heavy machinery. 4. You cannot sign legal documents or perform any duties such as this. 5. As long as you're taking opiate pain medications he should also be taking a stool softener such as Colace, Dulcolax, MiraLAX or prune juice, to help avoid constipation. Prescriptions: New hydrocodone-acetaminophen 5-325 mg tablet 1 tab PO Q6H PRN (Reason: pain) Qty: 10 0RF No Action lisinopril-hydrochlorothiazide 10 MG/12.5 MG tablet 1 tab PO QDAY Qty: 0 bupropion HCl [Wellbutrin SR] 200 MG tablet extended release 12 hr 150 mg PO Q DAY Qty: 0 albuterol sulfate [Proventil HFA] 90 MCG/PUFF HFA aerosol inhaler 2 puff INH Q4HP Qty: 8.5 tamsulosin 0.4 mg capsule 0.4 mg PO BEDTIME Label Comments: TAKE ONE CAPSULE BY MOUTH AT BEDTIME atorvastatin 20 mg tablet 20 mg PO BEDTIME Label Comments: TAKE ONE TABLET BY MOUTH ONE TIME DAILY glipizide 10 mg tablet extended release 24hr 10 mg PO DAILY Label Comments: TAKE ONE TABLET BY MOUTH ONE TIME DAILY finasteride 5 mg tablet 5 mg PO DAILY Qty: 30 0RF cephalexin 500 mg capsule 500 mg PO BID Qty: 14 0RF finasteride 5 mg tablet 5 mg PO DAILY Qty: 30 0RF oxybutynin chloride 5 mg tablet 5 mg PO BID-TID PRN (Reason: bladder spasms) Qty: 20 0RF Referrals: Miscellaneous,Doctor, [Primary Care Provider] - Luigi Soares MD [Physician] -
[2022-04-10 05:43] LABS: Add Manual Diff / Slide Review NO; Basophils Absolute Auto 0 /uL (0-100); Basophils Percent Auto 0.4 % (0-2); Eosinophils Absolute Auto 100 /uL (0-450); Eosinophils Percent Auto 0.8 % (2-4); Hematocrit 35.9 % (41-53); Hemoglobin 12.1 g/dL (13.5-17.5); Lymphocytes Absolute Auto 700 /uL (1100-4500); Lymphocytes Percent Auto 7.6 % (25-40); Mean Corpuscular HGB Conc 33.8 % (30-36); Mean Corpuscular Hemoglobin 31.1 PG (26-34); Mean Corpuscular Volume 92.1 fL (80-100); Monocytes Absolute Auto 800 /uL (0-900); Monocytes Percent Auto 8.7 % (3-14); Neutrophils Absolute Auto 7200 /uL (1500-7000); Neutrophils Percent Auto 82.5 % (50-75); Platelet Count 170 X10^3/uL (150-400); Red Blood Cell Count 3.89 X10^6/uL (4.5-5.9); Red Cell Distribution Width 14.1 % (11.6-14.8); White Blood Cell Count 8.7 X10^3/uL (4.5-11.0)
[2022-04-10] MEDS: HYDROMORPHONE 0.5 MG INJ IV (05:46)
[2022-04-10 05:58] LABS: Alanine Aminotransferase 26 IU/L (<50); Albumin 3.6 g/dL (3.5-5.0); Albumin Globulin Ratio 1.1 (1.0-2.8); Alkaline Phosphatase 82 U/L (38-126); Aspartate Aminotransferase 28 IU/L (17-59); BUN Creatinine Ratio 22.8 (6-22); Bilirubin Total 1.4 mg/dL (0.2-1.3); Blood Urea Nitrogen 18 mg/dL (9-20); Calcium 8.5 mg/dL (8.4-10.2); Chloride 91 mmol/L (98-107); Estimated Glomerular Filt Rate > 60 mL/min (>60); Globulin 3.2 g/dL (1.7-4.1); Glucose 130 mg/dL (80-110); HEMOLYSIS < 15 (0-50); Potassium 4.2 mmol/L (3.4-5.1); Sodium 136 mmol/L (137-145); Total Protein 6.8 g/dL (6.3-8.2)
[2022-04-10 06:04] LABS: Carbon Dioxide 39 mmol/L (22-32)
--- NOTE | 2022-04-10 06:09 | PC.NURSE ---
pt's catheter irrigated with 1 liter sterile water, started with hematuria and lightened to a very pale pink clear without any clots noted, amount the catheter was flushed with was easily returned, pt tolerated procedure well
--- NOTE | 2022-04-10 06:56 | PC.NURSE ---
pt's cole is draining without difficulty urine has changed from a very pale pink to pink-red color with no clots noted, pt states that is the color it was prior to him having to come to the ed
--- NOTE | 2022-04-10 07:18 | PC.NURSE ---
unable to send ua at this time, when patient came in urine was too turbid and bloody, now urine has been irrigated. will leave on task list to try to send in future
[2022-04-10 07:54] LABS: COVID19 -Nasal RAPID Negative (Negative)
--- NOTE | 2022-04-10 10:48 | P.CONS_ITS ---
History of Present Illness Consult details Date Patient Seen: 04/10/22 Time Patient Seen: 07:00 Chief complaint: Blood in catheter Reason for consult: Return to ED, complaint pain, blood in urine Requesting provider: Gretchen Lubin Narrative: This 72-year-old male had return to the emergency department with complaint of catheter pain and blood in his urine. He had been seen the previous evening is catheter been irrigated and things appeared to be clear. However on return he was having pain with the catheter and was concerned that there was a problem. He would also had some blood return but there were no clots and on his return he had only 75 cc in his bladder by bladder scan. He was irrigated by nursing staff with 1 L of sterile water and the urine cleared very quickly. Was asked to see the patient to ensure that there was no acute urologic problem or need. In interviewing the patient his biggest concern was there was pain with movement etc. I did have the catheter on traction and with release of the traction and apparently the patient received a pain med he was feeling much better. His urine on arrival was described as light pink. With irrigation it had become more of a blush perhaps a slightly pandey color. Again view of any clots were obtained from the irrigation and in looking at the catheter is urine again looked more of a luis a in color. In talking with the patient his biggest concern was that he was alone, he was having pain. He was reassured in a plan designed around his concerns. Patient will have family members which he states always makes him feel better and so I think it is safe for him to be discharged to home as noted below. Meds Home Medications and Allergies Home Medications Medication Instructions Recorded Confirmed Type albuterol sulfate 90 mcg/actuation 2 puff INH Q4HP ##8.5 12/20/11 History aerosol inhaler (Proventil HFA) bupropion HCl 200 mg tablet,12 hr 150 mg PO Q DAY ##0 12/20/11 04/09/22 History sustained-release (Wellbutrin SR) lisinopril 10 1 tab PO QDAY ##0 12/20/11 History mg-hydrochlorothiazide 12.5 mg tablet atorvastatin 20 mg tablet 20 mg PO BEDTIME 04/09/22 04/09/22 History cephalexin 500 mg capsule 500 mg PO BID #14 caps 04/09/22 Rx finasteride 5 mg tablet 5 mg PO DAILY #30 tabs 04/09/22 Rx finasteride 5 mg tablet 5 mg PO DAILY #30 tabs 04/09/22 Rx glipizide 10 mg tablet, extended 10 mg PO DAILY 04/09/22 04/09/22 History release 24 hr oxybutynin chloride 5 mg tablet 5 mg PO BID-TID PRN bladder spasms 04/09/22 Rx #20 tabs tamsulosin 0.4 mg capsule 0.4 mg PO BEDTIME 04/09/22 04/09/22 History hydrocodone 5 mg-acetaminophen 325 1 tab PO Q6H PRN pain #10 tabs 04/10/22 Rx mg tablet Allergies Allergy/AdvReac Type Severity Reaction Status Date / Time lisinopril Allergy Unknown Verified 04/09/22 11:18 Sulfa (Sulfonamide Allergy Unknown Verified 04/09/22 11:18 Antibiotics) [SULFA (SULFONAMIDE ANTIBIOTICS)] Exam Vital Signs (past 8 hours): - 04/10/22 04:14 04/10/22 06:04 04/10/22 06:30 Temperature 98.9 F Pulse Rate 89 71 85 Respiratory Rate 18 18 Blood Pressure 108/67 132/62 Pulse Oximetry 91 94 91 Oxygen Delivery Method Nasal Cannula Nasal Cannula Oxygen Flow Rate 2 04/10/22 07:00 04/10/22 07:21 04/10/22 07:21 Temperature Pulse Rate 84 81 Respiratory Rate 18 Blood Pressure 136/63 Pulse Oximetry 93 93 Oxygen Delivery Method Oxygen Flow Rate 04/10/22 07:30 04/10/22 07:30 04/10/22 08:24 Temperature Pulse Rate 83 74 Respiratory Rate 18 Blood Pressure 140/64 154/70 H Pulse Oximetry 93 95 Oxygen Delivery Method Oxygen Flow Rate Oxygen Delivery Method Nasal Cannula Oxygen Flow Rate 2 Narrative Exam Narrative: General: This is an awake, alert, comfortable appearing male resting on a gurney O2 per nasal cannula which the patient wears at home. Lungs: Coarse breath sounds Cardiovascular exam: Regular rate and rhythm without murmur Abdominal exam: Soft obese, nontender, without mass Genitourinary exam: Normal penis Franklni catheter in place small amount of bloody discharge at the meatus. Blush to zhou colored urine in the patient's catheter without clot. Objective Labs Result Diagrams: 04/10/22 05:35 04/10/22 05:35 Labs: Laboratory Results - last 24 hr 04/10/22 04/10/22 04/10/22 05:35 05:35 07:19 WBC 8.7 RBC 3.89 L Hgb 12.1 L Hct 35.9 L MCV 92.1 MCH 31.1 MCHC 33.8 RDW 14.1 Plt Count 170 Neut % (Auto) 82.5 H Lymph % (Auto) 7.6 L [place] % (Auto) 8.7 Eos % (Auto) 0.8 L Baso % (Auto) 0.4 Neut # (Auto) 7200 H Lymph # (Auto) 700 L [place] # (Auto) 800 Eos # (Auto) 100 Baso # (Auto) 0 Sodium 136 L Potassium 4.2 Chloride 91 L Carbon Dioxide 39 H BUN 18 Creatinine 0.79 Estimated GFR > 60 BUN/Creatinine Ratio 22.8 H Glucose 130 H Calcium 8.5 Total Bilirubin 1.4 H AST 28 ALT 26 Alkaline Phosphatase 82 Total Protein 6.8 Albumin 3.6 Globulin 3.2 Albumin/Globulin Ratio 1.1 SARS-CoV-2 (PCR) Negative [facility] Medical History (Updated 04/10/22 @ 10:54 by Luigi Soares MD) COPD (chronic obstructive pulmonary disease) Depression Excessive daytime sleepiness History of brachytherapy History of prostate cancer Hypertension Non-STEMI (non-ST elevated myocardial infarction) (~11/2011) Obstructive sleep apnea of adult Primary insomnia Snoring Type 2 diabetes mellitus Tobacco & Substance Use Smoking Status: Former smoker Assessment & Plan Assessment and plan (1) Irradiation cystitis with hematuria: Status: Acute (2) History of prostate cancer: Status: Acute (3) History of brachytherapy: Status: Acute (4) Hematuria: Status: Acute (5) Pain due to genitourinary device: Status: Acute Plan Assessment and plan: Patient with hematuria likely secondary to radiation cystitis. No clot no evidence of catheter obstruction. Patient was having bladder spasm and pain. This is likely due to the catheter needing to be on traction this has been relieved and the patient is more comfortable. I do not see any indication for acute urologic intervention or hospitalization at this point. Plan is to discharge the patient to home with supplies for self irrigation patient having been taught how and when to irrigate. Patient will follow-up with me unless things change early next week for voiding trial and catheter removal. Patient is instructed to participate only in quiet activity. The emergency room physician has agreed to provide the patient with some pain medicines. And he will continue on the medications that he was given last night. Patient's laboratories are acceptable vitals are acceptable and again it appears that is safe for the patient to be discharged to home with appropriate instructions and plan as noted above. Time Spent With Patient Time with patient: 30 to 49 minutes with 50% spent counseling/coordinating care Critical Care time: I spent a total of [] minutes of critical care time on this patient's care today; this time is exclusive of procedural time.
== END 2022-04-10 08:50 | disposition home or self-care (01) ==
PROVIDERS: Emergency Provider Emergency Medicine
DX: N30.41 Irradiation cystitis with hematuria (principal); Z20.822 Contact with and (suspected) exposure to COVID-19
CPT/HCPCS: 36415; 51700; 51798; 80053; 85025; 87635; 96374; 99283; 99285; C9803; J1170

== ENCOUNTER → 2022-04-16 15:37 | Outpatient (ROUT) | payer MEDICARE, OTHER, SELFPAY ==
[2022-04-16 15:50] LABS: Appearance Urine UA TURBID; Bilirubin Urine UA NEGATIVE (NEGATIVE); Color Urine UA RED; Glucose Urine UA TRACE g/dL (Negative); Ketones Urine UA NEGATIVE (NEGATIVE); Leukocyte Esterase Urine UA NEGATIVE (NEGATIVE); Nitrite Urine UA NEGATIVE (Negative); Occult Blood Urine UA 3+ (Negative); Protein Urine UA 3+ (Negative); Specific Gravity Urine UA 1.015 (1.000-1.035); Urobilinogen Urine UA 0.2 E.U./dL (0.2); pH Urine UA 8.5 (4.5-8.0)
[2022-04-16 16:00] LABS: Bacteria Urine None Seen; Culture Indicated Urine Cult Not Indicated; RBC Urine >100/HPF (0-5/HPF); Squamous Epithelial Cell Urine None Seen (0-5/HPF); WBC Urine None Seen (0-5/HPF)
== END ==
PROVIDERS: Visit Provider Urology
DX: N30.41 Irradiation cystitis with hematuria (principal); R33.9 Retention of urine, unspecified
CPT/HCPCS: 81001

== ENCOUNTER → 2022-05-01 08:37 | Outpatient (CLI) | payer MEDICARE, OTHER, SELFPAY | PROVIDERS: Referring Provider Urology; Visit Provider Surgery | DX: N30.41 Irradiation cystitis with hematuria (principal); Y84.2 Radiological procedure and radiotherapy as the cause of abnormal reaction of the patient, or of later complication, without mention of misadventure at the time of the procedure; J44.9 Chronic obstructive pulmonary disease, unspecified; E11.00 Type 2 diabetes mellitus with hyperosmolarity without nonketotic hyperglycemic-hyperosmolar coma (NKHHC) | CPT/HCPCS: 99204; 99212 ==

== ENCOUNTER → 2022-05-01 09:58 | Outpatient (CLI) | payer MEDICARE, OTHER, SELFPAY ==
[2022-05-01 11:38] LABS: Add Manual Diff / Slide Review NO; Basophils Absolute Auto 0 /uL (0-100); Basophils Percent Auto 0.2 % (0-2); Eosinophils Absolute Auto 200 /uL (0-450); Eosinophils Percent Auto 2.7 % (2-4); Hemoglobin 12.4 g/dL (13.5-17.5); Lymphocytes Absolute Auto 900 /uL (1100-4500); Lymphocytes Percent Auto 11.2 % (25-40); Mean Corpuscular HGB Conc 33.4 % (30-36); Mean Corpuscular Hemoglobin 30.7 PG (26-34); Mean Corpuscular Volume 92.1 fL (80-100); Monocytes Absolute Auto 400 /uL (0-900); Monocytes Percent Auto 5.2 % (3-14); Neutrophils Absolute Auto 6200 /uL (1500-7000); Neutrophils Percent Auto 80.7 % (50-75); Platelet Count 220 X10^3/uL (150-400); Red Blood Cell Count 4.02 X10^6/uL (4.5-5.9); Red Cell Distribution Width 13.8 % (11.6-14.8); White Blood Cell Count 7.7 X10^3/uL (4.5-11.0)
[2022-05-01 12:12] LABS: Hemoglobin A1C% w Est Avg Glu 6.5 % (4.0-6.0)
== END ==
PROVIDERS: PCP Internal Medicine; Referring Provider Internal Medicine; Visit Provider Internal Medicine
DX: E11.29 Type 2 diabetes mellitus with other diabetic kidney complication (principal); R80.9 Proteinuria, unspecified
CPT/HCPCS: 36415; 83036; 85025

== ENCOUNTER → 2022-05-15 15:58 | Outpatient (CLI) | payer MEDICARE, OTHER, SELFPAY | PROVIDERS: PCP Internal Medicine; Visit Provider Urology | DX: N30.41 Irradiation cystitis with hematuria (principal); R33.9 Retention of urine, unspecified; Z85.46 Personal history of malignant neoplasm of prostate | CPT/HCPCS: 87077; 87086; 87186; 99214 ==

== ENCOUNTER → 2022-05-15 16:35 | Outpatient (CLI) | payer MEDICARE, OTHER, SELFPAY ==
[2022-05-15 17:09] LABS: BUN Creatinine Ratio 19.1 (6-22); Blood Urea Nitrogen 17 mg/dL (9-20); Estimated Glomerular Filt Rate > 60 mL/min (>60)
== END ==
PROVIDERS: Referring Provider Surgery; Visit Provider Surgery
DX: J44.9 Chronic obstructive pulmonary disease, unspecified (principal)
CPT/HCPCS: 36415; 82565; 84520

== ENCOUNTER → 2022-05-19 13:18 | Outpatient (CLI) | payer MEDICARE, OTHER, SELFPAY ==
--- NOTE | 2022-05-19 13:20 | DI.CT.S_ITS ---
PROCEDURE: CT CHEST W CON INDICATIONS: COPD TECHNIQUE: After the administration of intravenous contrast, 5 mm thick sections acquired from the pulmonary apices to the posterior costophrenic angles. 1 mm axial lung, 5 mm thick coronal and sagittal reformats and 7 mm axial MIP were acquired. For radiation dose reduction, the following was used: automated exposure control, adjustment of mA and/or kV according to patient size. COMPARISON: [facility], CT, PE STUDY (CTA CHEST), 08/17/2012, 11:05. FINDINGS: Image quality: Excellent. Lungs and pleura: No acute air space opacities. Linear atelectasis/scarring are seen scattered in posterior and lateral periphery of bilateral lung franco more prominent at posterior aspect of right lung base. Mild centrilobular emphysema is seen. Tiny calcified granuloma is noted in anterior aspect of left lung base series 3, image 202. No pleural effusions or pneumothorax. Central and peripheral airways are patent and normal in caliber. Mediastinum: Heart size is normal. No pericardial effusion. Moderate atherosclerotic calcifications are seen in coronary vessels and thoracic aorta. No mediastinal or hilar adenopathy by size criteria. Mild ascending thoracic aortic aneurysm is seen measures up to 4.2 cm in largest AP diameter . Mild prominence of main pulmonary artery is also seen which can be seen associated with pulmonary vascular hypertension. Esophagus is normal in caliber. No hiatal hernia. Bones and chest wall: No suspicious bony lesions. No vertebral body compression fractures. Degenerative disc disease throughout thoracic spine is seen. No axillary or supraclavicular adenopathy by size criteria. Thyroid gland is within normal limits. Abdomen: Visualized upper abdominal solid organs appear normal. Upper abdominal bowel loops are normal in caliber. IMPRESSION: 1. Scattered scarring/atelectasis in periphery of bilateral lung franco. Tiny calcified granuloma in left lung base. Mild centrilobular emphysema. No focal infiltrate, pleural effusion or pneumothorax. Airway is patent. 2. Noif-[id number] atherosclerotic disease. Mild ascending thoracic aortic aneurysm measures up to 4.2 cm in largest AP diameter. Mild prominence of pulmonary arteries which can be seen associated with pulmonary vascular hypertension. No mediastinal or hilar lymphadenopathy by size criteria. Dictated by: Juan King M.D. on 05/19/2022 at 16:34 Approved by: Juan King M.D. on 05/19/2022 at 16:46
== END ==
PROVIDERS: Referring Provider Surgery; Visit Provider Surgery
DX: J43.2 Centrilobular emphysema (principal); I25.10 Atherosclerotic heart disease of native coronary artery without angina pectoris; I71.21 Aneurysm of the ascending aorta, without rupture
CPT/HCPCS: 71260; Q9967

== ENCOUNTER → 2022-05-22 15:15 | Outpatient (CLI) | payer MEDICARE, OTHER, SELFPAY | PROVIDERS: Visit Provider Specialist | DX: N30.41 Irradiation cystitis with hematuria (principal); R31.0 Gross hematuria; R33.9 Retention of urine, unspecified | CPT/HCPCS: 51702; 87077; 87086; 87147; 87186 ==

== ENCOUNTER → 2022-05-22 15:16 | Outpatient (CLI) | payer MEDICARE, OTHER, SELFPAY ==
[2022-05-22 16:36] LABS: Add Manual Diff / Slide Review NO; Basophils Absolute Auto 0 /uL (0-100); Basophils Percent Auto 0.2 % (0-2); Eosinophils Absolute Auto 400 /uL (0-450); Eosinophils Percent Auto 6.4 % (2-4); Hematocrit 33.1 % (41-53); Hemoglobin 11.3 g/dL (13.5-17.5); Lymphocytes Absolute Auto 900 /uL (1100-4500); Lymphocytes Percent Auto 15.4 % (25-40); Mean Corpuscular HGB Conc 34.2 % (30-36); Mean Corpuscular Hemoglobin 31.6 PG (26-34); Mean Corpuscular Volume 92.6 fL (80-100); Monocytes Absolute Auto 300 /uL (0-900); Neutrophils Absolute Auto 4000 /uL (1500-7000); Platelet Count 223 X10^3/uL (150-400); Red Blood Cell Count 3.57 X10^6/uL (4.5-5.9); Red Cell Distribution Width 13.8 % (11.6-14.8); White Blood Cell Count 5.5 X10^3/uL (4.5-11.0)
[2022-05-22 16:56] LABS: Iron 54 ug/dL (49-181)
[2022-05-22 17:06] LABS: Total Iron Binding Capacity 401 ug/dL (261-462)
[2022-05-22 17:33] LABS: Ferritin 13 ng/mL (18-464)
== END ==
PROVIDERS: Referring Provider Internal Medicine; Visit Provider Internal Medicine
DX: D64.9 Anemia, unspecified (principal)
CPT/HCPCS: 36415; 82728; 83540; 83550; 85025

== ENCOUNTER → 2022-05-30 10:42 | Outpatient (CLI) | payer MEDICARE, OTHER, SELFPAY ==
[2022-05-30 12:20] LABS: Occult Blood 1 Negative (Negative); Occult Blood 2 Negative (Negative); Occult Blood 3 Negative (Negative)
== END ==
PROVIDERS: PCP Internal Medicine; Referring Provider Internal Medicine; Visit Provider Internal Medicine
DX: D64.9 Anemia, unspecified (principal)
CPT/HCPCS: 82270

== ENCOUNTER → 2022-06-02 09:37 | Outpatient (CLI) | payer MEDICARE, OTHER, SELFPAY | PROVIDERS: PCP Internal Medicine; Referring Provider Urology; Visit Provider Surgery | DX: N30.41 Irradiation cystitis with hematuria (principal); Y84.2 Radiological procedure and radiotherapy as the cause of abnormal reaction of the patient, or of later complication, without mention of misadventure at the time of the procedure; J44.9 Chronic obstructive pulmonary disease, unspecified; E11.00 Type 2 diabetes mellitus with hyperosmolarity without nonketotic hyperglycemic-hyperosmolar coma (NKHHC) | CPT/HCPCS: 99183; G0277 ==

== ENCOUNTER → 2022-06-03 13:54 | Outpatient (CLI) | payer MEDICARE, OTHER, SELFPAY | PROVIDERS: PCP Internal Medicine; Referring Provider Internal Medicine; Visit Provider Surgery | DX: N30.41 Irradiation cystitis with hematuria (principal); E11.628 Type 2 diabetes mellitus with other skin complications; Y84.2 Radiological procedure and radiotherapy as the cause of abnormal reaction of the patient, or of later complication, without mention of misadventure at the time of the procedure; J44.9 Chronic obstructive pulmonary disease, unspecified | CPT/HCPCS: 99183; G0277 ==

== ENCOUNTER → 2022-06-04 13:30 | Outpatient (CLI) | payer MEDICARE, OTHER, SELFPAY | PROVIDERS: PCP Internal Medicine; Referring Provider Specialist; Visit Provider Surgery | DX: N30.41 Irradiation cystitis with hematuria (principal); Y84.2 Radiological procedure and radiotherapy as the cause of abnormal reaction of the patient, or of later complication, without mention of misadventure at the time of the procedure; J44.9 Chronic obstructive pulmonary disease, unspecified; E11.00 Type 2 diabetes mellitus with hyperosmolarity without nonketotic hyperglycemic-hyperosmolar coma (NKHHC) | CPT/HCPCS: 99183; G0277 ==

== ENCOUNTER → 2022-06-05 14:00 | Outpatient (CLI) | payer MEDICARE, OTHER, SELFPAY | PROVIDERS: PCP Internal Medicine; Referring Provider Internal Medicine; Visit Provider Surgery | DX: N30.41 Irradiation cystitis with hematuria (principal); Y84.2 Radiological procedure and radiotherapy as the cause of abnormal reaction of the patient, or of later complication, without mention of misadventure at the time of the procedure; J44.9 Chronic obstructive pulmonary disease, unspecified; E11.00 Type 2 diabetes mellitus with hyperosmolarity without nonketotic hyperglycemic-hyperosmolar coma (NKHHC) | CPT/HCPCS: 99183; G0277 ==

== ENCOUNTER → 2022-06-06 13:39 | Outpatient (CLI) | payer MEDICARE, OTHER, SELFPAY | PROVIDERS: PCP Internal Medicine; Referring Provider Specialist; Visit Provider Nurse Practitioner Family | DX: N30.41 Irradiation cystitis with hematuria (principal); Y84.2 Radiological procedure and radiotherapy as the cause of abnormal reaction of the patient, or of later complication, without mention of misadventure at the time of the procedure; J44.9 Chronic obstructive pulmonary disease, unspecified; E11.00 Type 2 diabetes mellitus with hyperosmolarity without nonketotic hyperglycemic-hyperosmolar coma (NKHHC) | CPT/HCPCS: 99183; G0277 ==

== ENCOUNTER → 2022-06-09 13:27 | Outpatient (CLI) | payer MEDICARE, OTHER, SELFPAY | PROVIDERS: PCP Internal Medicine; Referring Provider Internal Medicine; Visit Provider Surgery | DX: N30.41 Irradiation cystitis with hematuria (principal); Y84.2 Radiological procedure and radiotherapy as the cause of abnormal reaction of the patient, or of later complication, without mention of misadventure at the time of the procedure; J44.9 Chronic obstructive pulmonary disease, unspecified; E11.00 Type 2 diabetes mellitus with hyperosmolarity without nonketotic hyperglycemic-hyperosmolar coma (NKHHC) | CPT/HCPCS: 99183; G0277 ==

== ENCOUNTER → 2022-06-10 14:31 | Outpatient (CLI) | payer MEDICARE, OTHER, SELFPAY | PROVIDERS: PCP Internal Medicine; Referring Provider Specialist; Visit Provider Surgery | DX: N30.41 Irradiation cystitis with hematuria (principal); Y84.2 Radiological procedure and radiotherapy as the cause of abnormal reaction of the patient, or of later complication, without mention of misadventure at the time of the procedure; J44.9 Chronic obstructive pulmonary disease, unspecified; E11.00 Type 2 diabetes mellitus with hyperosmolarity without nonketotic hyperglycemic-hyperosmolar coma (NKHHC) | CPT/HCPCS: 99183; G0277 ==

== ENCOUNTER → 2022-06-11 14:26 | Outpatient (CLI) | payer MEDICARE, OTHER, SELFPAY | PROVIDERS: PCP Internal Medicine; Referring Provider Internal Medicine; Visit Provider Surgery | DX: N30.41 Irradiation cystitis with hematuria (principal); Y84.2 Radiological procedure and radiotherapy as the cause of abnormal reaction of the patient, or of later complication, without mention of misadventure at the time of the procedure; J44.9 Chronic obstructive pulmonary disease, unspecified; E11.00 Type 2 diabetes mellitus with hyperosmolarity without nonketotic hyperglycemic-hyperosmolar coma (NKHHC) | CPT/HCPCS: 99183; G0277 ==

== ENCOUNTER → 2022-06-12 13:31 | Outpatient (CLI) | payer MEDICARE, OTHER, SELFPAY | PROVIDERS: PCP Internal Medicine; Referring Provider Specialist; Visit Provider Surgery | DX: J96.01 Acute respiratory failure with hypoxia (principal) | CPT/HCPCS: 99213 ==

== ENCOUNTER 2022-06-12 14:27 | Emergency (ER) | payer MEDICARE, OTHER, SELFPAY ==
[2022-06-12] VITALS (14 sets, daily range): BP systolic 126–130; BP diastolic 59–61; PULSE 61–87; RESP 15–22; TEMP 36.8; O2SAT 76–99; BMI 32.3
--- NOTE | 2022-06-12 14:39 | DI.RAD.S_ITS ---
PROCEDURE: XR CHEST 1V INDICATIONS: Shortness of breath TECHNIQUE: One view of the chest was acquired. COMPARISON: [facility], , CHEST 1 VIEW, 08/15/2012, 19:41. FINDINGS: Surgical changes and devices: None. Lungs and pleura: Lungs are clear. No pleural effusions or pneumothorax. Mediastinum: Mediastinal contours appear normal. Heart size is normal. Bones and chest wall: No suspicious bony lesions. Overlying soft tissues appear unremarkable. IMPRESSION: No acute process. Dictated by: Jimbo uRsh M.D. on 06/12/2022 at 14:58 Approved by: Jimbo Rush M.D. on 06/12/2022 at 14:59
--- NOTE | 2022-06-12 14:45 | ED_ITS ---
HPI - SOB/Dyspnea General Chief Complaint: Shortness of Breath/Dyspnea Stated Complaint: sent by Wound clinic low OXY levels Time Seen by Provider: 06/12/22 14:37 Source: patient Mode of arrival: Wheelchair Limitations: no limitations History of Present Illness HPI Narrative: Patient is 72-year-old male history of COPD on 2 L of home oxygen, hematuria secondary to radiation, currently undergoing hyperbaric treatment presents today from wound care with increasing shortness of breath. He reports that he has been having worsening shortness of breath over the last day or so. She feels bloated and has peripheral edema as well. Unclear if he has any orthopnea he sleeps in a reclined position at baseline. He denies any fevers chills or productive cough. He denies any chest pain. He certainly has more shortness of breath with exertion than at rest. Related Data Home Medications Medication Instructions Recorded Confirmed bupropion HCl 200 mg tablet,12 hr 150 mg PO Q DAY ##0 12/20/11 05/15/22 sustained-release (Wellbutrin SR) atorvastatin 20 mg tablet 20 mg PO BEDTIME 04/09/22 05/15/22 glipizide 10 mg tablet, extended 10 mg PO DAILY 04/09/22 05/15/22 release 24 hr losartan 50 mg-hydrochlorothiazide 1 tab PO DAILY 04/14/22 05/15/22 12.5 mg tablet ibuprofen 600 mg tablet 600 mg PO Q8H PRN 05/15/22 05/15/22 metformin 1,000 mg tablet 1,000 mg PO BID 05/15/22 05/15/22 multivitamin 1 tab PO DAILY 05/15/22 05/15/22 Previous Rx's Medication Instructions Recorded hydrocodone 5 mg-acetaminophen 325 1 tab PO Q6H PRN pain #10 tabs 04/10/22 mg tablet finasteride 5 mg tablet 5 mg PO DAILY #30 tabs 04/14/22 nitrofurantoin 100 mg PO BID #20 caps 05/26/22 monohydrate/macrocrystals 100 mg capsule (Macrobid) Allergies Allergy/AdvReac Type Severity Reaction Status Date / Time lisinopril Allergy Unknown Verified 06/12/22 14:40 Sulfa (Sulfonamide Allergy Unknown Verified 06/12/22 14:40 Antibiotics) [SULFA (SULFONAMIDE ANTIBIOTICS)] Review of Systems Review of Systems ROS Unobtainable: All systems reviewed & are unremarkable except as noted in HPI and below Patient History Medical History COPD (chronic obstructive pulmonary disease) Depression Excessive daytime sleepiness History of brachytherapy History of prostate cancer Hypertension Non-STEMI (non-ST elevated myocardial infarction) (~11/2011) Obstructive sleep apnea of adult Primary insomnia Snoring Type 2 diabetes mellitus Social History Smoking Status: Former smoker Smoking Status: Former smoker alcohol intake frequency: holidays/special occasions only Substance Use Type: does not use Exam Initial Vital Signs Initial Vital Signs: Vital Signs Pulse Rate 87 06/12/22 14:34 Pulse Oximetry 76 L 06/12/22 14:34 Oxygen Delivery Method 06/12/22 14:34 Oxygen Flow Rate 2 06/12/22 14:34 GENERAL: Alert chronically ill 72-year-old male HEENT: Head atraumatic,EOMI, pupils reactive, face symmetric, moist mucous membranes CARDIOVASCULAR: Regular rate and rhythm without murmurs, rubs or gallops. RESPIRATORY: Decreased breath sounds bilaterally no wheezing rales or rhonchi no conversational dyspnea no tachypnea ABDOMEN: Soft, nontender. Normoactive bowel sounds all 4 quadrants. No guarding or rebound. : Rfanklin catheter in place light serosanguineous fluid no gross hematuria EXTREMITIES: Normal range of motion, no clubbing. +2 pitting edema. Neurovascularly intact NEUROLOGICAL: Alert and oriented x4. SKIN: Warm, dry, no laceration, no petechiae, no rashes or lesions. Course Orders Ordered: Discontinued Medications Albuterol (Albuterol 2.5 Mg/3 Ml Neb (Adult)) 2.5 mg INH NOW ONE Stop: 06/12/22 16:33 Last Admin: 06/12/22 16:40 Dose: 2.5 mg Documented By: FAWN Albuterol (Albuterol Hfa Prepack) 1 box MISC SEEINSTR ONE Stop: 06/12/22 16:36 Last Admin: 06/12/22 16:40 Dose: 1 box Documented By: FAWN Albuterol/Ipratropium (Albuterol/Ipratropium 3 Ml Ampul) 3 ml INH NOW ONE Stop: 06/12/22 15:43 Last Admin: 06/12/22 15:55 Dose: 3 ml Documented By: JClareF Methylprednisolone (Methylprednisolone 125 Mg/2 Ml Vial) 125 mg IV NOW ONE Stop: 06/12/22 15:43 Last Admin: 06/12/22 15:48 Dose: 125 mg Documented By: RB Vital Signs Vital signs: Vital Signs - 8 hr 06/12/22 14:35 06/12/22 14:34 06/12/22 14:35 Temperature 98.2 F Pulse Rate 85 87 Respiratory Rate 22 Blood Pressure 126/59 L 126/59 L Pulse Oximetry 82 L 76 L Oxygen Delivery Method Nasal Cannula Nasal Cannula Oxygen Flow Rate 2 2 06/12/22 14:35 06/12/22 14:57 06/12/22 14:57 Temperature Pulse Rate 82 72 Respiratory Rate Blood Pressure 130/61 Pulse Oximetry 82 L 94 Oxygen Delivery Method Nasal Cannula Nasal Cannula Oxygen Flow Rate 2 3 06/12/22 15:00 06/12/22 15:56 06/12/22 16:40 Temperature Pulse Rate 71 67 62 Respiratory Rate 19 16 16 Blood Pressure Pulse Oximetry 96 98 97 Oxygen Delivery Method Nasal Cannula Nasal Cannula Oxygen Flow Rate 2 06/12/22 15:30 06/12/22 15:45 06/12/22 16:00 Temperature Pulse Rate 68 70 71 Respiratory Rate 15 Blood Pressure Pulse Oximetry 98 97 98 Oxygen Delivery Method Oxygen Flow Rate 06/12/22 16:15 06/12/22 16:30 06/12/22 16:45 Temperature Pulse Rate 66 65 61 Respiratory Rate Blood Pressure Pulse Oximetry 97 95 99 Oxygen Delivery Method Oxygen Flow Rate 06/12/22 17:00 06/12/22 17:04 06/12/22 17:04 Temperature Pulse Rate 63 63 Respiratory Rate Blood Pressure 128/61 Pulse Oximetry 97 96 Oxygen Delivery Method Oxygen Flow Rate MDM - SOB/Dyspnea Lab Data 06/12/22 14:50 06/12/22 14:50 Labs: Lab Results 06/12/22 06/12/22 06/12/22 Range/Units 14:50 14:50 14:50 WBC 5.8 (4.5-11.0) X10^3/uL RBC 2.98 L (4.5-5.9) X10^6/uL Hgb 9.1 L (13.5-17.5) g/dL Hct 27.4 L (41-53) % MCV 91.9 (80-100) fL MCH 30.4 (26-34) PG MCHC 33.1 (30-36) % RDW 13.6 (11.6-14.8) % Plt Count 193 (150-400) X10^3/uL Neut % (Auto) 73.6 (50-75) % Lymph % (Auto) 13.1 L (25-40) % [place] % (Auto) 9.6 (3-14) % Eos % (Auto) 3.4 (2-4) % Baso % (Auto) 0.3 (0-2) % Neut # (Auto) 4200 (3517-1343) /uL Lymph # (Auto) 800 L (0219-4081) /uL [place] # (Auto) 600 (0-900) /uL Eos # (Auto) 200 (0-450) /uL Baso # (Auto) 0 (0-100) /uL PT 12.9 H (10.1-12.7) SECONDS INR 1.1 (0.9-1.3) Sodium 138 (137-145) mmol/L Potassium 4.7 (3.4-5.1) mmol/L Chloride 94 L (98-107) mmol/L Carbon Dioxide 39 H (22-32) mmol/L BUN 24 H (9-20) mg/dL Creatinine 0.83 (0.66-1.25) mg/dL Estimated GFR > 60 (>60) mL/min BUN/Creatinine Ratio 28.9 H (6-22) Glucose 180 H (80-110) mg/dL Lactate (0.7-2.1) mmol/L Calcium 8.4 (8.4-10.2) mg/dL Total Bilirubin 0.4 (0.2-1.3) mg/dL AST 28 (17-59) IU/L ALT 21 (<50) IU/L Alkaline Phosphatase 65 (38-126) U/L Troponin I 0.013 (0.01-0.034) ng/mL NT-Pro-B Natriuret Pep 190 H (<125) pg/mL Total Protein 6.5 (6.3-8.2) g/dL Albumin 3.7 (3.5-5.0) g/dL Globulin 2.8 (1.7-4.1) g/dL Albumin/Globulin Ratio 1.3 (1.0-2.8) SARS-CoV-2 (PCR) (Negative) 06/12/22 06/12/22 Range/Units 14:50 15:00 WBC (4.5-11.0) X10^3/uL RBC (4.5-5.9) X10^6/uL Hgb (13.5-17.5) g/dL Hct (41-53) % MCV (80-100) fL MCH (26-34) PG MCHC (30-36) % RDW (11.6-14.8) % Plt Count (150-400) X10^3/uL Neut % (Auto) (50-75) % Lymph % (Auto) (25-40) % [place] % (Auto) (3-14) % Eos % (Auto) (2-4) % Baso % (Auto) (0-2) % Neut # (Auto) (0188-1484) /uL Lymph # (Auto) (3730-1541) /uL [place] # (Auto) (0-900) /uL Eos # (Auto) (0-450) /uL Baso # (Auto) (0-100) /uL PT (10.1-12.7) SECONDS INR (0.9-1.3) Sodium (137-145) mmol/L Potassium (3.4-5.1) mmol/L Chloride (98-107) mmol/L Carbon Dioxide (22-32) mmol/L BUN (9-20) mg/dL Creatinine (0.66-1.25) mg/dL Estimated GFR (>60) mL/min BUN/Creatinine Ratio (6-22) Glucose (80-110) mg/dL Lactate 1.6 (0.7-2.1) mmol/L Calcium (8.4-10.2) mg/dL Total Bilirubin (0.2-1.3) mg/dL AST (17-59) IU/L ALT (<50) IU/L Alkaline Phosphatase (38-126) U/L Troponin I (0.01-0.034) ng/mL NT-Pro-B Natriuret Pep (<125) pg/mL Total Protein (6.3-8.2) g/dL Albumin (3.5-5.0) g/dL Globulin (1.7-4.1) g/dL Albumin/Globulin Ratio (1.0-2.8) SARS-CoV-2 (PCR) Negative (Negative) Imaging Data Chest x-ray: Radiologist's Impression: Signed Patient: Robinson Perez MR#: [id number] : 1950 Acct:[id number] Age/Sex: 72 / M Date of Service: 06/12/22 Loc: ED Accession Number: [id number] ?? Procedure: XR chest 1V Ordering Provider: Gretchen Lubin D.O. PROCEDURE:? XR CHEST 1V ? INDICATIONS:? Shortness of breath ? TECHNIQUE:? One view of the chest was acquired.? ? COMPARISON:? [facility], , CHEST 1 VIEW, 08/15/2012, 19:41. ? FINDINGS:? ? Surgical changes and devices:? None.? ? Lungs and pleura:? Lungs are clear.? No pleural effusions or pneumothorax.? ? Mediastinum:? Mediastinal contours appear normal.? Heart size is normal.? ? Bones and chest wall:? No suspicious bony lesions.? Overlying soft tissues appear unremarkable.? ? IMPRESSION:? No acute process. ? ? Dictated by: Jimbo Rush M.D. on 06/12/2022 at 14:58 ? ? ECG Data Interpretation: Normal sinus rhythm rate 60 ID interval 150 QRS 86 QTC [address] changes no T-wave inversions MDM Narrative Medical decision making narrative: Patient 72-year-old male with chronic COPD on home oxygen with radiation cy stitis receiving hyperbaric chamber presenting today with increasing hypoxia. Actually does not have any symptoms but is requiring 3 L. chest x-ray shows no acute process. Blood work does show some mild anemia hemoglobin 9.1 hematocrit 27.4 previous hemoglobin 11.3 and 33.1. He does have some mild hematuria in his urine but serosanguineous not grossly bloody. He is given albuterol treatment here in the ER and Solu-Medrol we are able to turn his oxygen back down. No evidence of congestive heart failure. Pulmonary embolism was considered however chronically hypoxic improved with albuterol and history of COPD. He is not having any inhalers at home he said he quit taking them. He overall is not agree this to store and. I have given him an inhaler and teaching to go home with. Social work has been in daughter is apparently leaving town tomorrow. At this time he does not need any health care. At this time does not meet admission criteria I did discuss with daughter and patient needs to have repeat blood work due to his anemia had a make sure he does not need a transfusion this could also be contributing to his hypoxia however no indication for blood transfusion at this time. Discharge Plan Departure Patient Disposition: Home Clinical Impression: COPD exacerbation Instructions: Chronic Obstructive Pulmonary Disease Activity Restrictions/Additional Instructions: *You have been diagnosed with COPD exacerbation *What to do: At this time things overall improved here in the emergency department. I recommend that you Z use your inhaler to help your breathing. Please monitor your oxygen. If your oxygen dropped to 84-86% than please turn her oxygen up 1 level. Use your albuterol as directed if you are continuing to need more oxygen than normal please return to the emergency department *Continue to take medications as directed Albuterol 1-2 puffs every 4 hours with spacer if needed for coughing spells or shortness of breath *Follow up with your primary care provider in 2-3 days or call [phone] *Return to ER if you should have increasing shortness of breath, bleeding from [place] chest pain or any new, worsening or concerning symptoms Prescriptions: No Action bupropion HCl [Wellbutrin SR] 200 MG tablet extended release 12 hr 150 mg PO Q DAY Qty: 0 nitrofurantoin monohyd/m-cryst [Macrobid] 100 mg capsule 100 mg PO BID Qty: 20 0RF Rx Instructions: must administer with a meal/food atorvastatin 20 mg tablet 20 mg PO BEDTIME Label Comments: TAKE ONE TABLET BY MOUTH ONE TIME DAILY glipizide 10 mg tablet extended release 24hr 10 mg PO DAILY Label Comments: TAKE ONE TABLET BY MOUTH ONE TIME DAILY hydrocodone-acetaminophen 5-325 mg tablet 1 tab PO Q6H PRN (Reason: pain) Qty: 10 0RF metformin 1,000 mg tablet 1,000 mg PO BID multivitamin Tablet 1 tab PO DAILY ibuprofen 600 mg tablet 600 mg PO Q8H PRN losartan-hydrochlorothiazide 50-12.5 mg tablet 1 tab PO DAILY finasteride 5 mg tablet 5 mg PO DAILY Qty: 30 0RF Referrals: Leigh Laura MD [Primary Care Provider] - Stand Alone Forms: Patient Portal/API
[2022-06-12 15:00] LABS: Add Manual Diff / Slide Review NO; Basophils Absolute Auto 0 /uL (0-100); Basophils Percent Auto 0.3 % (0-2); Eosinophils Absolute Auto 200 /uL (0-450); Eosinophils Percent Auto 3.4 % (2-4); Hematocrit 27.4 % (41-53); Hemoglobin 9.1 g/dL (13.5-17.5); Lymphocytes Absolute Auto 800 /uL (1100-4500); Lymphocytes Percent Auto 13.1 % (25-40); Mean Corpuscular HGB Conc 33.1 % (30-36); Mean Corpuscular Hemoglobin 30.4 PG (26-34); Mean Corpuscular Volume 91.9 fL (80-100); Monocytes Absolute Auto 600 /uL (0-900); Monocytes Percent Auto 9.6 % (3-14); Neutrophils Absolute Auto 4200 /uL (1500-7000); Neutrophils Percent Auto 73.6 % (50-75); Platelet Count 193 X10^3/uL (150-400); Red Blood Cell Count 2.98 X10^6/uL (4.5-5.9); Red Cell Distribution Width 13.6 % (11.6-14.8); White Blood Cell Count 5.8 X10^3/uL (4.5-11.0)
[2022-06-12 15:14] LABS: Alanine Aminotransferase 21 IU/L (<50); Albumin 3.7 g/dL (3.5-5.0); Albumin Globulin Ratio 1.3 (1.0-2.8); Alkaline Phosphatase 65 U/L (38-126); Aspartate Aminotransferase 28 IU/L (17-59); BUN Creatinine Ratio 28.9 (6-22); Bilirubin Total 0.4 mg/dL (0.2-1.3); Blood Urea Nitrogen 24 mg/dL (9-20); Calcium 8.4 mg/dL (8.4-10.2); Chloride 94 mmol/L (98-107); Estimated Glomerular Filt Rate > 60 mL/min (>60); Globulin 2.8 g/dL (1.7-4.1); Glucose 180 mg/dL (80-110); Potassium 4.7 mmol/L (3.4-5.1); Sodium 138 mmol/L (137-145); Total Protein 6.5 g/dL (6.3-8.2)
[2022-06-12 15:16] LABS: Lactate (Lactic Acid) 1.6 mmol/L (0.7-2.1)
[2022-06-12 15:19] LABS: Carbon Dioxide 39 mmol/L (22-32); HEMOLYSIS 25 (0-50)
[2022-06-12 15:24] LABS: INR 1.1 (0.9-1.3); Prothrombin Time 12.9 SECONDS (10.1-12.7)
[2022-06-12 15:25] LABS: NT-proBNP (BNP-Adult 18+) 190 pg/mL (<125); Troponin I 0.013 ng/mL (0.01-0.034)
[2022-06-12 15:39] LABS: COVID19 -Nasal RAPID Negative (Negative)
[2022-06-12] MEDS: methylPREDNISolone 125 MG/2 ML VIAL IV (15:48)
[2022-06-12] MEDS: ALBUTEROL/IPRATROPIUM 3 ML AMPUL INH (15:55)
[2022-06-12] MEDS: ALBUTEROL 2.5 MG/3 ML NEB (ADULT) INH (16:40)
[2022-06-12] MEDS: ALBUTEROL HFA PREPACK 1 BOX MISC (16:40)
--- NOTE | 2022-06-12 17:25 | CM.SWNOTE ---
ED DCP/CREDIT RISK MANAGEMENT DIRECTOR Note Patient is 72 y/o male who presents to ED due to concern for low oxygen levels during wound care appt. It is reported that patient has daily hyperbaric chamber treatments Mondays-Fridays for the next 6-8 weeks. Patient endorses no current PCP, CREDIT RISK MANAGEMENT DIRECTOR schedules establish care appt for patient with Dr. Urbano for 06/19/22 at 4pm. Patient has Medicare insurance and [employer]. Patient sees Urologist Dr. Soares and Wound care Dr. Contreras. CREDIT RISK MANAGEMENT DIRECTOR receives consult per request of patient's daughter/primary home care scheduler. CREDIT RISK MANAGEMENT DIRECTOR enters room to meet with patient. Present in room is patient's daughter Zonia. Patient presents as A/Ox4. Patient endorses independence with ambulation, can prepare meals and shower independently. 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 Patient's daughter reports that patient just got a 4ww walker for outings. Patient endorses he can drive but endorses difficulty getting in and out of the car. 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 Daughter reports concern getting patient to daily wound care appts. It is reported that neighbors check in on patient as needed and patient has a daughter and son that live on [address] who have limited availability but are able to care for patient as needed. Per ED provider Dr. Lubin, patient is medically clear for d/c. CREDIT RISK MANAGEMENT DIRECTOR provides daughter with senior resource guide and discusses caregivers as option, it appears due to patient's current level of ADLs patient does not qualify for HH at this time, CREDIT RISK MANAGEMENT DIRECTOR encourages patient to f/u with PCP regarding need for referral. CREDIT RISK MANAGEMENT DIRECTOR provides daughter with application for [employer] [facility] and faxes application for eligibility upon completion. Plan: Patient to d/c to home with daughter, patient to f/u with new PCP appt with Dr. Urbano next week on 06/19/22. Family to f/u with higher level of care needs as appropriate, pending [employer] [facility] application in place. Patricia Albright, CASH MANAGEMENT ASSOCIATE
== END 2022-06-12 17:20 | disposition home or self-care (01) ==
PROVIDERS: Emergency Provider Emergency Medicine; PCP Internal Medicine
DX: J44.1 Chronic obstructive pulmonary disease with (acute) exacerbation (principal); Z20.822 Contact with and (suspected) exposure to COVID-19
CPT/HCPCS: 36415; 71045; 80053; 83605; 83880; 84484; 85025; 85610; 87635; 93005; 93010; 94640; 96374; 99284; 99285; C9803; J2930; J7613

== ENCOUNTER → 2022-06-16 13:37 | Outpatient (CLI) | payer MEDICARE, OTHER, SELFPAY | PROVIDERS: PCP Internal Medicine; Referring Provider Internal Medicine; Visit Provider Surgery | DX: I95.9 Hypotension, unspecified (principal) | CPT/HCPCS: 99211; 99213 ==

== ENCOUNTER → 2022-06-19 16:34 | Outpatient (CLI) | payer MEDICARE, OTHER, SELFPAY ==
[2022-06-19 17:11] LABS: Hematocrit 30.3 % (41-53); Hemoglobin 9.9 g/dL (13.5-17.5); Mean Corpuscular HGB Conc 32.7 % (30-36); Mean Corpuscular Hemoglobin 29.5 PG (26-34); Mean Corpuscular Volume 90.1 fL (80-100); Platelet Count 287 X10^3/uL (150-400); Red Blood Cell Count 3.36 X10^6/uL (4.5-5.9); Red Cell Distribution Width 13.7 % (11.6-14.8); White Blood Cell Count 8.4 X10^3/uL (4.5-11.0)
[2022-06-19 17:33] LABS: Reticulocyte Count, Percent 1.9 % (0.9-2.6)
[2022-06-19 17:49] LABS: BUN Creatinine Ratio 19.6 (6-22); Blood Urea Nitrogen 20 mg/dL (9-20); Calcium 8.7 mg/dL (8.4-10.2); Chloride 89 mmol/L (98-107); Estimated Glomerular Filt Rate > 60 mL/min (>60); Glucose 91 mg/dL (80-110); HEMOLYSIS < 15 (0-50); Potassium 4.3 mmol/L (3.4-5.1); Sodium 137 mmol/L (137-145)
[2022-06-19 18:04] LABS: Carbon Dioxide 39 mmol/L (22-32)
[2022-06-19 18:26] LABS: Ferritin 9 ng/mL (18-464)
[2022-06-19 18:57] LABS: Folate 19.9 ng/mL (2.76-20.0); Vitamin B12 484 pg/mL (239-931)
== END ==
PROVIDERS: PCP Student in an Organized Health Care Education/Training Program; Referring Provider Student in an Organized Health Care Education/Training Program; Visit Provider Student in an Organized Health Care Education/Training Program
DX: D64.9 Anemia, unspecified (principal)
CPT/HCPCS: 36415; 80048; 82607; 82728; 82746; 85027; 85045

== ENCOUNTER → 2022-06-23 13:08 | Outpatient (CLI) | payer MEDICARE, OTHER, SELFPAY | PROVIDERS: PCP Student in an Organized Health Care Education/Training Program; Referring Provider Specialist; Visit Provider Surgery | DX: N30.41 Irradiation cystitis with hematuria (principal); Y84.2 Radiological procedure and radiotherapy as the cause of abnormal reaction of the patient, or of later complication, without mention of misadventure at the time of the procedure; J44.9 Chronic obstructive pulmonary disease, unspecified; E11.00 Type 2 diabetes mellitus with hyperosmolarity without nonketotic hyperglycemic-hyperosmolar coma (NKHHC) | CPT/HCPCS: 99183; G0277 ==

== ENCOUNTER → 2022-06-24 13:11 | Outpatient (CLI) | payer MEDICARE, OTHER, SELFPAY | PROVIDERS: PCP Student in an Organized Health Care Education/Training Program; Referring Provider Student in an Organized Health Care Education/Training Program; Visit Provider Surgery | DX: N30.41 Irradiation cystitis with hematuria (principal); Y84.2 Radiological procedure and radiotherapy as the cause of abnormal reaction of the patient, or of later complication, without mention of misadventure at the time of the procedure; J44.9 Chronic obstructive pulmonary disease, unspecified; E11.00 Type 2 diabetes mellitus with hyperosmolarity without nonketotic hyperglycemic-hyperosmolar coma (NKHHC) | CPT/HCPCS: 99183; G0277 ==

== ENCOUNTER → 2022-06-25 14:53 | Outpatient (CLI) | payer MEDICARE, OTHER, SELFPAY | PROVIDERS: PCP Student in an Organized Health Care Education/Training Program; Referring Provider Urology; Visit Provider Surgery | DX: N30.41 Irradiation cystitis with hematuria (principal); Y84.2 Radiological procedure and radiotherapy as the cause of abnormal reaction of the patient, or of later complication, without mention of misadventure at the time of the procedure; J44.9 Chronic obstructive pulmonary disease, unspecified; E11.00 Type 2 diabetes mellitus with hyperosmolarity without nonketotic hyperglycemic-hyperosmolar coma (NKHHC) | CPT/HCPCS: 99183; G0277 ==

== ENCOUNTER → 2022-06-27 13:45 | Outpatient (CLI) | payer MEDICARE, OTHER, SELFPAY | PROVIDERS: PCP Student in an Organized Health Care Education/Training Program; Referring Provider Urology; Visit Provider Surgery | DX: N30.41 Irradiation cystitis with hematuria (principal); Y84.2 Radiological procedure and radiotherapy as the cause of abnormal reaction of the patient, or of later complication, without mention of misadventure at the time of the procedure; J44.9 Chronic obstructive pulmonary disease, unspecified; E11.00 Type 2 diabetes mellitus with hyperosmolarity without nonketotic hyperglycemic-hyperosmolar coma (NKHHC) | CPT/HCPCS: 99183; G0277 ==

== ENCOUNTER → 2022-06-30 07:20 | Outpatient (CLI) | payer MEDICARE, OTHER, SELFPAY ==
--- NOTE | 2022-06-30 07:36 | DI.ECHO.S_ITS ---
Interpretation Summary Mild concentric left ventricular hypertrophy with ejection fraction 65-70%. The left ventricular cavity is small. Mild aortic stenosis. Mild mitral annular calcification. The ascending aorta is mildly enlarged. Procedure: A two-dimensional transthoracic echocardiogram with color flow and Doppler was performed. The study quality was technically adequate. The patient was in sinus rhythm with heart rates between 77-84 bpm during the exam. Left Ventricle: There is mild concentric left ventricular hypertrophy. The left ventricular cavity is small. The ejection fraction is estimated to be 65- 70%. There are no focal wall motion abnormalities. Right Ventricle: The right ventricle is normal in size and function. Atria: The left atrial size is normal. Right atrial size is normal. There is no Doppler evidence for an interatrial shunt. Mitral Valve: The mitral valve is normal in structure and function. There is mild mitral annular calcification. There is trace mitral regurgitation. Aortic Valve: The aortic valve is trileaflet. The aortic valve is moderately calcified. There is mild aortic stenosis. There is trace aortic regurgitation. Tricuspid Valve: The tricuspid valve is normal in structure and function. There is a trace or physiologic amount of tricuspid regurgitation. Pulmonic Valve: The pulmonic valve leaflets are thin and pliable; valve motion is normal. There is no pulmonic valvular regurgitation. Great Vessels: The ascending aorta is mildly enlarged. Moderate pulmonary artery dilation. The inferior vena cava was not well visualized. Pericardium/ Pleura There is no pericardial effusion. There is no pleural effusion. MMode/2D Measurements & Calculations LVIDd: 3.9 cm LVOT diam: 2.0 cm LVIDs: 2.5 cm Ao root diam: 3.6 cm FS: 34.7 % asc Aorta Diam: 4.1 cm IVSd: 1.3 cm LVPWd: 1.2 cm LV lazo. diameter/BSA (cm/m^2): 1.9 LV sys. diameter/BSA (cm/m^2): 1.2 LA A2 area: 20.4 cm2 RA long axis: 5.7 cm LA A4 area: 18.4 cm2 RA area: 17.6 cm2 LA length (vol): 5.4 cm RA vol: 46.3 ml LA vol: 59.5 ml RA : 22.5 ml/m2 LA vol index: 28.9 ml/m2 RVD1 (basal): 4.1 cm TAPSE: 2.0 cm Doppler Measurements & Calculations Ao V2 max: 241.5 cm/sec LVOT Max Donal: 104.9 cm/sec Ao V2 mean: 173.8 cm/sec LV V1 max P.4 mmHg Ao max P.3 mmHg LV V1 VTI: 22.7 cm Ao mean P.3 mmHg BRIGITTE(I,D): 1.6 cm2 Ao V2 VTI: 44.1 cm BRIGITTE(V,D): 1.4 cm2 sev ratio: 0.51 BRIGITTE indexed to BSA (cm^2/m^2): 0.78 MV E max donal: 67.8 cm/sec TR max donal: 222.5 cm/sec MV A max donal: 81.3 cm/sec TR max P.8 mmHg MV E/A: 0.83 PA V2 max: 86.8 cm/sec Med Peak E' Donal: 8.8 cm/sec PA V2 mean: 65.8 cm/sec E/E' med: 7.7 PA mean P.8 mmHg Lat Peak E' Donal: 10.1 cm/sec E/E' lat: 6.7 E/e' average: 7.2 MV dec time: 0.23 sec MVA(VTI): 3.7 cm2 MV V2 mean: 57.0 cm/sec SV(LVOT): 71.3 ml MV mean P.5 mmHg MV V2 VTI: 19.3 cm Electronically signed by: Nara Rosenbaum on Reading Physician:06/30/2022 11:10 PM
== END ==
PROVIDERS: PCP Student in an Organized Health Care Education/Training Program; Referring Provider Student in an Organized Health Care Education/Training Program; Visit Provider Student in an Organized Health Care Education/Training Program
DX: D64.9 Anemia, unspecified (principal); J44.9 Chronic obstructive pulmonary disease, unspecified; R06.00 Dyspnea, unspecified; I51.7 Cardiomegaly; I35.0 Nonrheumatic aortic (valve) stenosis; I34.81 Nonrheumatic mitral (valve) annulus calcification
CPT/HCPCS: 93306

== ENCOUNTER → 2022-06-30 09:43 | Outpatient (CLI) | payer MEDICARE, OTHER, SELFPAY | PROVIDERS: PCP Student in an Organized Health Care Education/Training Program; Referring Provider Urology; Visit Provider Surgery | DX: D64.9 Anemia, unspecified (principal); J44.9 Chronic obstructive pulmonary disease, unspecified; R06.00 Dyspnea, unspecified; I51.7 Cardiomegaly; I35.0 Nonrheumatic aortic (valve) stenosis; I34.81 Nonrheumatic mitral (valve) annulus calcification; N30.41 Irradiation cystitis with hematuria; Y84.2 Radiological procedure and radiotherapy as the cause of abnormal reaction of the patient, or of later complication, without mention of misadventure at the time of the procedure; E11.00 Type 2 diabetes mellitus with hyperosmolarity without nonketotic hyperglycemic-hyperosmolar coma (NKHHC); D50.0 Iron deficiency anemia secondary to blood loss (chronic); E11.9 Type 2 diabetes mellitus without complications | CPT/HCPCS: 36415; 82728; 83036; 85027; 85045; 93306; 99183; G0277 ==

== ENCOUNTER → 2022-06-30 12:12 | Outpatient (CLI) | payer MEDICARE, OTHER, SELFPAY ==
[2022-06-30 12:50] LABS: Hematocrit 30.3 % (41-53); Mean Corpuscular HGB Conc 32.9 % (30-36); Mean Corpuscular Hemoglobin 29.1 PG (26-34); Mean Corpuscular Volume 88.5 fL (80-100); Platelet Count 265 X10^3/uL (150-400); Red Blood Cell Count 3.43 X10^6/uL (4.5-5.9); Red Cell Distribution Width 14.3 % (11.6-14.8); White Blood Cell Count 8.3 X10^3/uL (4.5-11.0)
[2022-06-30 13:22] LABS: Hemoglobin A1C% w Est Avg Glu 6.3 % (4.0-6.0)
[2022-06-30 13:52] LABS: Ferritin 31 ng/mL (18-464)
== END ==
PROVIDERS: PCP Student in an Organized Health Care Education/Training Program; Referring Provider Student in an Organized Health Care Education/Training Program; Visit Provider Student in an Organized Health Care Education/Training Program
DX: D50.0 Iron deficiency anemia secondary to blood loss (chronic) (principal); E11.9 Type 2 diabetes mellitus without complications
CPT/HCPCS: 36415; 82728; 83036; 85027; 85045

== ENCOUNTER → 2022-07-01 13:14 | Outpatient (CLI) | payer MEDICARE, OTHER, SELFPAY | PROVIDERS: PCP Student in an Organized Health Care Education/Training Program; Referring Provider Urology; Visit Provider Surgery | DX: N30.41 Irradiation cystitis with hematuria (principal); E11.628 Type 2 diabetes mellitus with other skin complications; J44.9 Chronic obstructive pulmonary disease, unspecified; C61 Malignant neoplasm of prostate; Z87.891 Personal history of nicotine dependence | CPT/HCPCS: 99183; 99211; 99213; G0277 ==

== ENCOUNTER → 2022-07-02 10:29 | Outpatient (CLI) | payer MEDICARE, OTHER, SELFPAY | PROVIDERS: PCP Student in an Organized Health Care Education/Training Program; Visit Provider Specialist | DX: N30.41 Irradiation cystitis with hematuria (principal); R31.0 Gross hematuria; R33.9 Retention of urine, unspecified | CPT/HCPCS: 87077; 87086; 87147 ==

== ENCOUNTER → 2022-07-02 13:05 | Outpatient (CLI) | payer MEDICARE, OTHER, SELFPAY | PROVIDERS: PCP Student in an Organized Health Care Education/Training Program; Referring Provider Urology; Visit Provider Surgery | DX: N30.41 Irradiation cystitis with hematuria (principal); R31.0 Gross hematuria; R33.9 Retention of urine, unspecified | CPT/HCPCS: 51702; 87077; 87086; 87147; 87186; 99183; G0277 ==

== ENCOUNTER → 2022-07-03 13:23 | Outpatient (CLI) | payer MEDICARE, OTHER, SELFPAY | PROVIDERS: PCP Student in an Organized Health Care Education/Training Program; Referring Provider Student in an Organized Health Care Education/Training Program; Visit Provider Surgery | DX: N30.41 Irradiation cystitis with hematuria (principal); Y84.2 Radiological procedure and radiotherapy as the cause of abnormal reaction of the patient, or of later complication, without mention of misadventure at the time of the procedure; J44.9 Chronic obstructive pulmonary disease, unspecified; E11.00 Type 2 diabetes mellitus with hyperosmolarity without nonketotic hyperglycemic-hyperosmolar coma (NKHHC) | CPT/HCPCS: 99183; G0277 ==

== ENCOUNTER → 2022-07-04 13:45 | Outpatient (CLI) | payer MEDICARE, OTHER, SELFPAY | PROVIDERS: PCP Student in an Organized Health Care Education/Training Program; Referring Provider Urology; Visit Provider Nurse Practitioner Family | DX: N30.41 Irradiation cystitis with hematuria (principal); Y84.2 Radiological procedure and radiotherapy as the cause of abnormal reaction of the patient, or of later complication, without mention of misadventure at the time of the procedure; J44.9 Chronic obstructive pulmonary disease, unspecified; E11.00 Type 2 diabetes mellitus with hyperosmolarity without nonketotic hyperglycemic-hyperosmolar coma (NKHHC) | CPT/HCPCS: 99183; G0277 ==

== ENCOUNTER → 2022-07-07 13:36 | Outpatient (CLI) | payer MEDICARE, OTHER, SELFPAY | PROVIDERS: PCP Student in an Organized Health Care Education/Training Program; Referring Provider Urology; Visit Provider Surgery | DX: N30.41 Irradiation cystitis with hematuria (principal); Y84.2 Radiological procedure and radiotherapy as the cause of abnormal reaction of the patient, or of later complication, without mention of misadventure at the time of the procedure; J44.9 Chronic obstructive pulmonary disease, unspecified; E11.00 Type 2 diabetes mellitus with hyperosmolarity without nonketotic hyperglycemic-hyperosmolar coma (NKHHC) | CPT/HCPCS: 99183; G0277 ==

== ENCOUNTER → 2022-07-08 13:11 | Outpatient (CLI) | payer MEDICARE, OTHER, SELFPAY | PROVIDERS: PCP Student in an Organized Health Care Education/Training Program; Visit Provider Surgery | DX: N30.41 Irradiation cystitis with hematuria (principal); Y84.2 Radiological procedure and radiotherapy as the cause of abnormal reaction of the patient, or of later complication, without mention of misadventure at the time of the procedure; J44.9 Chronic obstructive pulmonary disease, unspecified; E11.00 Type 2 diabetes mellitus with hyperosmolarity without nonketotic hyperglycemic-hyperosmolar coma (NKHHC) | CPT/HCPCS: 99183; G0277 ==

== ENCOUNTER → 2022-07-09 14:56 | Outpatient (CLI) | payer MEDICARE, OTHER, SELFPAY | PROVIDERS: PCP Student in an Organized Health Care Education/Training Program; Referring Provider Urology; Visit Provider Surgery | DX: N30.41 Irradiation cystitis with hematuria (principal); Y84.2 Radiological procedure and radiotherapy as the cause of abnormal reaction of the patient, or of later complication, without mention of misadventure at the time of the procedure; J44.9 Chronic obstructive pulmonary disease, unspecified; E11.00 Type 2 diabetes mellitus with hyperosmolarity without nonketotic hyperglycemic-hyperosmolar coma (NKHHC) | CPT/HCPCS: 99183; G0277 ==

== ENCOUNTER → 2022-07-10 13:23 | Outpatient (CLI) | payer MEDICARE, OTHER, SELFPAY | PROVIDERS: PCP Student in an Organized Health Care Education/Training Program; Visit Provider Surgery | DX: N30.41 Irradiation cystitis with hematuria (principal); Y84.2 Radiological procedure and radiotherapy as the cause of abnormal reaction of the patient, or of later complication, without mention of misadventure at the time of the procedure; J44.9 Chronic obstructive pulmonary disease, unspecified; E11.00 Type 2 diabetes mellitus with hyperosmolarity without nonketotic hyperglycemic-hyperosmolar coma (NKHHC) | CPT/HCPCS: 99183; G0277 ==

== ENCOUNTER 2022-07-14 11:39 | Emergency (ER) | payer MEDICARE, OTHER, SELFPAY ==
[2022-07-14] VITALS (12 sets, daily range): BP systolic 123–141; BP diastolic 59–92; PULSE 84–98; RESP 17–28; TEMP 38.8; O2SAT 93–100
--- NOTE | 2022-07-14 12:02 | DI.RAD.S_ITS ---
PROCEDURE: XR CHEST 1V INDICATIONS: suspected sepsis TECHNIQUE: One view of the chest was acquired. COMPARISON: [facility], CR, XR CHEST 1V, 06/12/2022, 14:42. FINDINGS: Surgical changes and devices: None. Lungs and pleura: Faint opacity is noted within the left base unchanged suspected to represent atelectasis versus scarring. Mediastinum: Mediastinal contours appear normal. Heart size is normal. Bones and chest wall: No suspicious bony lesions. Overlying soft tissues appear unremarkable. IMPRESSION: No consolidations. Dictated by: Sophie Gramajo M.D. on 07/14/2022 at 12:29 Approved by: Sophie Gramajo M.D. on 07/14/2022 at 12:29
--- NOTE | 2022-07-14 12:23 | ED.GENADULT ---
HPI - General Adult General Chief complaint: Fever Stated complaint: infected testicle/has cathadar Time Seen by Provider: 07/14/22 12:08 Source: patient and family Mode of arrival: Wheelchair History of Present Illness HPI narrative: Patient is a 72-year-old male. Does have a history of prostate cancer. Has had a urinary catheter in place for the past 4 months. His current catheter has been in place for the past 2-3 weeks. He has frequent blood clots. He woke up this morning with swelling of his left testicle. His catheter is still draining. He does not have any abdominal pain. No vomiting. No fevers. Related Data Home Medications Medication Instructions Recorded Confirmed bupropion HCl 200 mg tablet,12 hr 150 mg PO Q DAY ##0 12/20/11 07/02/22 sustained-release (Wellbutrin SR) atorvastatin 20 mg tablet 20 mg PO BEDTIME 04/09/22 07/02/22 glipizide 10 mg tablet, extended 10 mg PO DAILY 04/09/22 07/02/22 release 24 hr ibuprofen 600 mg tablet 600 mg PO Q8H PRN 05/15/22 07/02/22 metformin 1,000 mg tablet 1,000 mg PO BID 05/15/22 07/02/22 multivitamin 1 tab PO DAILY 05/15/22 07/02/22 hydrochlorothiazide 12.5 mg tablet 12.5 mg PO DAILY 06/20/22 07/02/22 losartan 50 mg tablet 50 mg PO DAILY 06/20/22 07/02/22 Previous Rx's Medication Instructions Recorded finasteride 5 mg tablet 5 mg PO DAILY #30 tabs 04/14/22 levofloxacin 750 mg tablet 750 mg PO DAILY 5 days #5 tabs 07/14/22 Allergies Allergy/AdvReac Type Severity Reaction Status Date / Time lisinopril Allergy Unknown Verified 07/14/22 12:10 Sulfa (Sulfonamide Allergy Unknown Verified 07/14/22 12:10 Antibiotics) [SULFA (SULFONAMIDE ANTIBIOTICS)] Review of Systems Constitutional Constitutional: Reports system reviewed and no additional complaints, except as documented Gastrointestinal Gastrointestinal: Reports system reviewed and no additional complaints, except as documented Genitourinary Genitourinary: Reports system reviewed and no additional complaints, except as documented Integumentary/Breasts Skin/Breast: Reports system reviewed and no additional complaints, except as documented Neurologic Neurologic: Reports system reviewed and no additional complaints, except as documented Patient History Medical History COPD (chronic obstructive pulmonary disease) Depression Essential hypertension History of brachytherapy History of prostate cancer Non-STEMI (non-ST elevated myocardial infarction) (~11/2011) Obstructive sleep apnea of adult Type 2 diabetes mellitus Social History Smoking Status: Former smoker Smoking Status: Former smoker alcohol intake frequency: holidays/special occasions only Substance Use Type: does not use Exam Initial Vital Signs Initial Vital Signs: Vital Signs Pulse Rate 92 H 07/14/22 11:59 Pulse Oximetry 100 07/14/22 11:59 Const General: cooperative, comfortable and No ill appearing HENMT Head: normal to inspection and normocephalic Resp Effort & Inspection: normal respiratory effort Auscultation: clear to auscultation bilaterally Cardio Rate: tachycardic Rhythm: regular rhythm GI Inspection: normal to inspection Other: Swelling and tenderness to the left hemiscrotum. Skin General: no rashes or lesions noted Neuro General: patient alert, patient awake and moves all extremities Extrem General: normal to inspection and capillary refill normal Course Orders Ordered: ED Orders 07/14/22 12:02 XR chest 1V Stat EKG-12 Lead Stat RT Consult Eval and Treat NOW 07/14/22 12:25 US scrotum Stat 07/14/22 12:30 Complete Blood Count AUTO DIFF Stat Comprehensive Metabolic Panel Stat Lactate (Lactic Acid) Stat Lipase Stat Procalcitonin Stat 07/14/22 12:51 Blood Culture Stat 07/14/22 13:00 COVID19 -Nasal RAPID Stat 07/14/22 13:39 Ictotest Urine Stat Urinalysis and Microscopic Stat Urine Culture Stat Urine Culture Stat Discontinued Medications Sodium Chloride (Normal Saline 0.9%) 1,000 mls @ 1,000 mls/hr IV BOLUS ONE Stop: 07/14/22 13:01 Last Admin: 07/14/22 13:04 Dose: 1,000 mls/hr Documented By: LOPEZ Ceftriaxone Sodium 1,000 mg/ (Sodium Chloride) 100 mls @ 200 mls/hr IV NOW ONE Stop: 07/14/22 12:27 Last Admin: 07/14/22 13:04 Dose: 200 mls/hr Documented By: LOPEZ Vital Signs Vital signs: Vital Signs - 8 hr 07/14/22 12:05 07/14/22 11:59 07/14/22 12:00 Temperature 101.8 F H Pulse Rate 91 H 92 H 93 H Respiratory Rate 17 Blood Pressure 141/67 H Pulse Oximetry 100 100 100 Oxygen Delivery Method Nasal Cannula Oxygen Flow Rate 3 07/14/22 12:50 07/14/22 13:00 07/14/22 13:14 Temperature Pulse Rate 94 H 97 H 98 H Respiratory Rate Blood Pressure Pulse Oximetry 99 97 98 Oxygen Delivery Method Oxygen Flow Rate 07/14/22 13:14 07/14/22 13:30 07/14/22 14:00 Temperature Pulse Rate 93 H Respiratory Rate Blood Pressure 139/82 125/59 L Pulse Oximetry 95 Oxygen Delivery Method Nasal Cannula Oxygen Flow Rate 3 07/14/22 14:00 07/14/22 14:30 07/14/22 14:30 Temperature Pulse Rate 92 H 86 Respiratory Rate 26 H 21 Blood Pressure 130/63 Pulse Oximetry 94 95 Oxygen Delivery Method Oxygen Flow Rate Medical Decision Making Lab Data 07/14/22 12:30 07/14/22 12:30 Labs: Lab Results 07/14/22 07/14/22 07/14/22 Range/Units 12:30 12:30 12:30 WBC 13.6 H (4.5-11.0) X10^3/uL RBC 3.35 L (4.5-5.9) X10^6/uL Hgb 9.7 L (13.5-17.5) g/dL Hct 30.3 L (41-53) % MCV 90.3 (80-100) fL MCH 28.9 (26-34) PG MCHC 32.1 (30-36) % RDW 15.8 H (11.6-14.8) % Plt Count 243 (150-400) X10^3/uL Neut % (Auto) 88.1 H (50-75) % Lymph % (Auto) 5.4 L (25-40) % [place] % (Auto) 5.9 (3-14) % Eos % (Auto) 0.3 L (2-4) % Baso % (Auto) 0.3 (0-2) % Neut # (Auto) 60380 H (7923-3495) /uL Lymph # (Auto) 700 L (2546-6835) /uL [place] # (Auto) 800 (0-900) /uL Eos # (Auto) 0 (0-450) /uL Baso # (Auto) 0 (0-100) /uL Sodium 135 L (137-145) mmol/L Potassium 4.4 (3.4-5.1) mmol/L Chloride 89 L (98-107) mmol/L Carbon Dioxide 42 H* (22-32) mmol/L BUN 14 (9-20) mg/dL Creatinine 0.74 (0.66-1.25) mg/dL Estimated GFR > 60 (>60) mL/min BUN/Creatinine Ratio 18.9 (6-22) Glucose 158 H (80-110) mg/dL Lactate 1.4 (0.7-2.1) mmol/L Calcium 8.5 (8.4-10.2) mg/dL Total Bilirubin 1.1 (0.2-1.3) mg/dL AST 26 (17-59) IU/L ALT 18 (<50) IU/L Alkaline Phosphatase 77 (38-126) U/L Total Protein 7.3 (6.3-8.2) g/dL Albumin 4.0 (3.5-5.0) g/dL Globulin 3.3 (1.7-4.1) g/dL Albumin/Globulin Ratio 1.2 (1.0-2.8) Lipase 57 (23-300) U/L Procalcitonin 0.15 (<0.5) ng/mL Urine Color Urine Appearance Urine pH (4.5-8.0) Ur Specific [place] (1.000-1.035) Urine Protein (Negative) Urine Glucose (UA) (Negative) g/dL Urine Ketones (NEGATIVE) Urine Occult Blood (Negative) Urine Nitrate (Negative) Urine Bilirubin (NEGATIVE) Ur Bilirubin Confirm (Negative) Urine Urobilinogen (0.2) E.U./dL Ur Leukocyte Esterase (NEGATIVE) Urine RBC (0-5/HPF) Urine WBC (0-5/HPF) Amorphous Sediment Urine Bacteria (None) Urine Mucus (Negative) Ur Culture Indicated? SARS-CoV-2 (PCR) (Negative) 07/14/22 07/14/22 Range/Units 13:00 13:39 WBC (4.5-11.0) X10^3/uL RBC (4.5-5.9) X10^6/uL Hgb (13.5-17.5) g/dL Hct (41-53) % MCV (80-100) fL MCH (26-34) PG MCHC (30-36) % RDW (11.6-14.8) % Plt Count (150-400) X10^3/uL Neut % (Auto) (50-75) % Lymph % (Auto) (25-40) % [place] % (Auto) (3-14) % Eos % (Auto) (2-4) % Baso % (Auto) (0-2) % Neut # (Auto) (5644-9434) /uL Lymph # (Auto) (8422-4385) /uL [place] # (Auto) (0-900) /uL Eos # (Auto) (0-450) /uL Baso # (Auto) (0-100) /uL Sodium (137-145) mmol/L Potassium (3.4-5.1) mmol/L Chloride (98-107) mmol/L Carbon Dioxide (22-32) mmol/L BUN (9-20) mg/dL Creatinine (0.66-1.25) mg/dL Estimated GFR (>60) mL/min BUN/Creatinine Ratio (6-22) Glucose (80-110) mg/dL Lactate (0.7-2.1) mmol/L Calcium (8.4-10.2) mg/dL Total Bilirubin (0.2-1.3) mg/dL AST (17-59) IU/L ALT (<50) IU/L Alkaline Phosphatase (38-126) U/L Total Protein (6.3-8.2) g/dL Albumin (3.5-5.0) g/dL Globulin (1.7-4.1) g/dL Albumin/Globulin Ratio (1.0-2.8) Lipase (23-300) U/L Procalcitonin (<0.5) ng/mL Urine Color Red Urine Appearance Cloudy Urine pH 8.5 H (4.5-8.0) Ur Specific [place] 1.010 (1.000-1.035) Urine Protein 3+ H (Negative) Urine Glucose (UA) Negative (Negative) g/dL Urine Ketones Negative (NEGATIVE) Urine Occult Blood 3+ H (Negative) Urine Nitrate Positive H (Negative) Urine Bilirubin 1+ H (NEGATIVE) Ur Bilirubin Confirm Positive H (Negative) Urine Urobilinogen 1.0 (0.2) E.U./dL Ur Leukocyte Esterase 2+ H (NEGATIVE) Urine RBC 10-30/hpf H (0-5/HPF) Urine WBC 5-10/hpf H (0-5/HPF) Amorphous Sediment 1+ Urine Bacteria Few (2-10) H (None) Urine Mucus 1+ H (Negative) Ur Culture Indicated? Preparation Room Manager SARS-CoV-2 (PCR) Negative (Negative) Imaging Data Chest x-ray: Radiologist's Impression: PROCEDURE:? XR CHEST 1V ? INDICATIONS:? suspected sepsis ? TECHNIQUE:? One view of the chest was acquired.? ? COMPARISON:? [facility], CR, XR CHEST 1V, 06/12/2022, 14:42. ? FINDINGS:? ? Surgical changes and devices:? None.? ? Lungs and pleura:? Faint opacity is noted within the left base unchanged suspected to represent atelectasis versus scarring. ? Mediastinum:? Mediastinal contours appear normal.? Heart size is normal.? ? Bones and chest wall:? No suspicious bony lesions.? Overlying soft tissues appear unremarkable.? ? IMPRESSION:? No consolidations. US scrotum: Radiologist's Impression: PROCEDURE:? US SCROTUM ? INDICATIONS:? LEFT TESTICULAR SWELLING ? TECHNIQUE:? Real-time scanning was performed of the scrotum and testicles, with image documentation.? Color and pulse Doppler interrogation was performed of both testicles.? ? COMPARISON:? None. ? FINDINGS:? ? Right:? Testicle is normal in size at 3.2 x 2.1 x 3.0 cm, and homogenous in echotexture.? Epididymis is normal in overall size and morphology.? No varicoceles.? [id number] hydrocele.? Overlying scrotal skin is normal in thickness.? ? Left:? Testicle is normal in size at 3.4 x 2.5 x 3.2 cm, and homogeneous in echotexture.? Epididymis demonstrates slight increased vascularity.? Septated hydrocele is present.? There is mild appearance of scrotal wall thickening with edema in increased vascularity. ? Doppler:? Color and pulse Doppler demonstrate normal and symmetric arterial flow in both testicles.? ? IMPRESSION:? ? Septated left hydrocele.? Scrotal wall thickening is present, which can be related to infection or inflammatory change.? Given complex appearance of hydrocele, underlying infection cannot be definitively excluded. ? Mild appearance of increased vascularity within the epididymis which could represent epididymitis. ECG Data Attestation: I personally reviewed and interpreted this ECG as follows: Interpretation: Sinus rhythm Ventricular rate 91 Normal axis Normal QRS Normal QTC No ST T wave changes MDM Narrative Medical decision making narrative: Despite his chronic medical problems the patient is nontoxic appearing. His at his baseline respiratory status in his requiring oxygen. He is retaining CO2 but I suspect that this is baseline for him. He is alert oriented x3. Patient does have left-sided hemiscrotum swelling and redness. The ultrasound shows epididymitis. I have low suspicion for Hanh's. He is no crepitus in the area. He was febrile and does have leukocytosis. Ultrasound shows epididymitis. His urinalysis is also nitrite positive. This was new from a urinalysis in March. Review of his urine culture shows a pansensitive staph and also a pansensitive E coli which he is had in the past. There is no abscess noted in the left hemiscrotum. He is no abdominal tenderness. The catheter is draining. He does have clots however he states this is normal for him. He is followed by urology. He is tolerating oral intake. I did discuss the case with Dr. Oliver who is on-call for Urology. Plan is to send him home with a for quinolone. He is not on Coumadin. He was given Rocephin here in the ER prior to discharge. He was given strict return precautions. If his symptoms improve he will follow-up with urology. If his symptoms worsen he will turned to the emergency department. He expressed understanding and agreement. Discharge Plan Departure Patient Disposition: Home Clinical Impression: Urinary tract infection, Epididymitis, Cellulitis of scrotum, Hematuria Instructions: How to Care for Your Franklin Catheter -- Male, DI for Epididymitis, DI for Urinary Tract Infection (UTI) Activity Restrictions/Additional Instructions: Based on your labs today we do need to start you on an antibiotic. A prescription for this was sent to [facility] per your request. You do need to watch your symptoms closely and off over the next 24-48 hours your symptoms worsen you do need to return to the emergency department immediately for further evaluation. I also recommend that you contact your urologist for a follow-up. Return to the emergency department as we discussed Prescriptions: New levofloxacin 750 mg tablet 750 mg PO DAILY 5 Days Qty: 5 0RF No Action bupropion HCl [Wellbutrin SR] 200 MG tablet extended release 12 hr 150 mg PO Q DAY Qty: 0 hydrochlorothiazide 12.5 mg tablet 12.5 mg PO DAILY Hold Instructions: hold until BP normalizes losartan 50 mg tablet 50 mg PO DAILY Hold Instructions: 1/2 dose until BP normalizes atorvastatin 20 mg tablet 20 mg PO BEDTIME Patient Comments: TAKE ONE TABLET BY MOUTH ONE TIME DAILY glipizide 10 mg tablet extended release 24hr 10 mg PO DAILY Patient Comments: TAKE ONE TABLET BY MOUTH ONE TIME DAILY metformin 1,000 mg tablet 1,000 mg PO BID multivitamin Tablet 1 tab PO DAILY ibuprofen 600 mg tablet 600 mg PO Q8H PRN finasteride 5 mg tablet 5 mg PO DAILY Qty: 30 0RF Referrals: Sean Urbano MD [Primary Care Provider] - Stand Alone Forms: Patient Portal/API
--- NOTE | 2022-07-14 12:25 | DI.US.S_ITS ---
PROCEDURE: US SCROTUM INDICATIONS: LEFT TESTICULAR SWELLING TECHNIQUE: Real-time scanning was performed of the scrotum and testicles, with image documentation. Color and pulse Doppler interrogation was performed of both testicles. COMPARISON: None. FINDINGS: Right: Testicle is normal in size at 3.2 x 2.1 x 3.0 cm, and homogenous in echotexture. Epididymis is normal in overall size and morphology. No varicoceles. Lryw-dy-rjqujwvl hydrocele. Overlying scrotal skin is normal in thickness. Left: Testicle is normal in size at 3.4 x 2.5 x 3.2 cm, and homogeneous in echotexture. Epididymis demonstrates slight increased vascularity. Septated hydrocele is present. There is mild appearance of scrotal wall thickening with edema in increased vascularity. Doppler: Color and pulse Doppler demonstrate normal and symmetric arterial flow in both testicles. IMPRESSION: Septated left hydrocele. Scrotal wall thickening is present, which can be related to infection or inflammatory change. Given complex appearance of hydrocele, underlying infection cannot be definitively excluded. Mild appearance of increased vascularity within the epididymis which could represent epididymitis. Dictated by: Sophie Gramajo M.D. on 07/14/2022 at 13:49 Approved by: Sophie Gramajo M.D. on 07/14/2022 at 13:52
[2022-07-14 12:37] LABS: Add Manual Diff / Slide Review NO; Basophils Absolute Auto 0 /uL (0-100); Basophils Percent Auto 0.3 % (0-2); Eosinophils Absolute Auto 0 /uL (0-450); Eosinophils Percent Auto 0.3 % (2-4); Hematocrit 30.3 % (41-53); Hemoglobin 9.7 g/dL (13.5-17.5); Lymphocytes Absolute Auto 700 /uL (1100-4500); Lymphocytes Percent Auto 5.4 % (25-40); Mean Corpuscular HGB Conc 32.1 % (30-36); Mean Corpuscular Hemoglobin 28.9 PG (26-34); Mean Corpuscular Volume 90.3 fL (80-100); Monocytes Absolute Auto 800 /uL (0-900); Monocytes Percent Auto 5.9 % (3-14); Neutrophils Absolute Auto 12000 /uL (1500-7000); Neutrophils Percent Auto 88.1 % (50-75); Platelet Count 243 X10^3/uL (150-400); Red Blood Cell Count 3.35 X10^6/uL (4.5-5.9); Red Cell Distribution Width 15.8 % (11.6-14.8); White Blood Cell Count 13.6 X10^3/uL (4.5-11.0)
[2022-07-14 12:51] LABS: Lactate (Lactic Acid) 1.4 mmol/L (0.7-2.1)
[2022-07-14 12:53] LABS: Alanine Aminotransferase 18 IU/L (<50); Albumin Globulin Ratio 1.2 (1.0-2.8); Alkaline Phosphatase 77 U/L (38-126); Aspartate Aminotransferase 26 IU/L (17-59); BUN Creatinine Ratio 18.9 (6-22); Bilirubin Total 1.1 mg/dL (0.2-1.3); Blood Urea Nitrogen 14 mg/dL (9-20); Calcium 8.5 mg/dL (8.4-10.2); Chloride 89 mmol/L (98-107); Estimated Glomerular Filt Rate > 60 mL/min (>60); Globulin 3.3 g/dL (1.7-4.1); Glucose 158 mg/dL (80-110); HEMOLYSIS < 15 (0-50); Lipase 57 U/L (23-300); Potassium 4.4 mmol/L (3.4-5.1); Sodium 135 mmol/L (137-145); Total Protein 7.3 g/dL (6.3-8.2)
[2022-07-14 13:03] LABS: Carbon Dioxide 42 mmol/L (22-32)
[2022-07-14] MEDS: cefTRIAXone 1,000 MG in SODIUM CHLORIDE 0.9% 100 ML 200 MG IV (13:04)
[2022-07-14] MEDS: SODIUM CHLORIDE 0.9% 1,000 ML 1000 ML IV (13:04)
[2022-07-14 13:09] LABS: Procalcitonin 0.15 ng/mL (<0.5)
[2022-07-14 13:22] LABS: COVID19 -Nasal RAPID Negative (Negative)
--- NOTE | 2022-07-14 13:35 | PC.NURSE ---
Pt reports his indwelling cath with hematuria starting this am and left testicle pain along with red/bloody discharge from his penis and around the cath. Pt has 9/10 pain to his left testicle. Left testicle is swollen, red and warm.
[2022-07-14 13:50] LABS: Appearance Urine UA CLOUDY; Bilirubin Urine UA 1+ (NEGATIVE); Color Urine UA RED; Glucose Urine UA NEGATIVE (Negative); Ketones Urine UA NEGATIVE (NEGATIVE); Leukocyte Esterase Urine UA 2+ (NEGATIVE); Nitrite Urine UA POSITIVE (Negative); Occult Blood Urine UA 3+ (Negative); Protein Urine UA 3+ (Negative); pH Urine UA 8.5 (4.5-8.0)
[2022-07-14 14:09] LABS: Ictotest Urine Positive (Negative); RBC Urine 10-30/HPF (0-5/HPF)
[2022-07-14 14:10] LABS: Amorphous Sediment Urine 1+; Bacteria Urine Few (2-10); Mucus Urine 1+ (Negative); WBC Urine 5-10/HPF (0-5/HPF)
== END 2022-07-14 15:44 | disposition home or self-care (01) ==
PROVIDERS: Emergency Provider Emergency Medicine; PCP Student in an Organized Health Care Education/Training Program
DX: N39.0 Urinary tract infection, site not specified (principal); R31.9 Hematuria, unspecified; N45.1 Epididymitis; Z20.822 Contact with and (suspected) exposure to COVID-19
CPT/HCPCS: 36415; 71045; 76870; 80053; 81001; 83605; 83690; 84145; 85025; 87040; 87077; 87086; 87147; 87186; 87635; 93005; 93010; 96361; 96365; 99284; 99285; C9803; J0696

== ENCOUNTER → 2022-07-16 14:38 | Outpatient (CLI) | payer MEDICARE, OTHER, SELFPAY | PROVIDERS: PCP Student in an Organized Health Care Education/Training Program; Referring Provider Urology; Visit Provider Surgery | DX: N30.41 Irradiation cystitis with hematuria (principal); Y84.2 Radiological procedure and radiotherapy as the cause of abnormal reaction of the patient, or of later complication, without mention of misadventure at the time of the procedure; J44.9 Chronic obstructive pulmonary disease, unspecified; E11.00 Type 2 diabetes mellitus with hyperosmolarity without nonketotic hyperglycemic-hyperosmolar coma (NKHHC) | CPT/HCPCS: 99183; G0277 ==

== ENCOUNTER → 2022-07-21 13:31 | Outpatient (CLI) | payer MEDICARE, OTHER, SELFPAY | PROVIDERS: PCP Student in an Organized Health Care Education/Training Program; Referring Provider Urology; Visit Provider Surgery | DX: N30.41 Irradiation cystitis with hematuria (principal); Y84.2 Radiological procedure and radiotherapy as the cause of abnormal reaction of the patient, or of later complication, without mention of misadventure at the time of the procedure; J44.9 Chronic obstructive pulmonary disease, unspecified; E11.00 Type 2 diabetes mellitus with hyperosmolarity without nonketotic hyperglycemic-hyperosmolar coma (NKHHC) | CPT/HCPCS: 99183; G0277 ==

== ENCOUNTER → 2022-07-22 13:14 | Outpatient (CLI) | payer MEDICARE, OTHER, SELFPAY | PROVIDERS: PCP Student in an Organized Health Care Education/Training Program; Visit Provider Surgery | DX: N30.41 Irradiation cystitis with hematuria (principal); Y84.2 Radiological procedure and radiotherapy as the cause of abnormal reaction of the patient, or of later complication, without mention of misadventure at the time of the procedure; J44.9 Chronic obstructive pulmonary disease, unspecified; E11.00 Type 2 diabetes mellitus with hyperosmolarity without nonketotic hyperglycemic-hyperosmolar coma (NKHHC) | CPT/HCPCS: 99183; G0277 ==

== ENCOUNTER → 2022-07-23 13:12 | Outpatient (CLI) | payer MEDICARE, OTHER, SELFPAY | PROVIDERS: PCP Student in an Organized Health Care Education/Training Program; Referring Provider Student in an Organized Health Care Education/Training Program; Visit Provider Surgery | DX: N30.41 Irradiation cystitis with hematuria (principal); Y84.2 Radiological procedure and radiotherapy as the cause of abnormal reaction of the patient, or of later complication, without mention of misadventure at the time of the procedure; J44.9 Chronic obstructive pulmonary disease, unspecified; E11.00 Type 2 diabetes mellitus with hyperosmolarity without nonketotic hyperglycemic-hyperosmolar coma (NKHHC) | CPT/HCPCS: 99183; 99212; 99213; G0277 ==

== ENCOUNTER → 2022-07-24 13:01 | Outpatient (CLI) | payer MEDICARE, OTHER, SELFPAY | PROVIDERS: PCP Student in an Organized Health Care Education/Training Program; Visit Provider Surgery | DX: N30.41 Irradiation cystitis with hematuria (principal); Y84.2 Radiological procedure and radiotherapy as the cause of abnormal reaction of the patient, or of later complication, without mention of misadventure at the time of the procedure; J44.9 Chronic obstructive pulmonary disease, unspecified; E11.00 Type 2 diabetes mellitus with hyperosmolarity without nonketotic hyperglycemic-hyperosmolar coma (NKHHC) | CPT/HCPCS: 99183; G0277 ==

== ENCOUNTER → 2022-07-25 14:19 | Outpatient (CLI) | payer MEDICARE, OTHER, SELFPAY | PROVIDERS: PCP Student in an Organized Health Care Education/Training Program; Referring Provider Urology; Visit Provider Nurse Practitioner Family | DX: N30.41 Irradiation cystitis with hematuria (principal); Y84.2 Radiological procedure and radiotherapy as the cause of abnormal reaction of the patient, or of later complication, without mention of misadventure at the time of the procedure; J44.9 Chronic obstructive pulmonary disease, unspecified; E11.00 Type 2 diabetes mellitus with hyperosmolarity without nonketotic hyperglycemic-hyperosmolar coma (NKHHC) | CPT/HCPCS: 99183; G0277 ==

== ENCOUNTER → 2022-07-29 12:52 | Outpatient (CLI) | payer MEDICARE, OTHER, SELFPAY | PROVIDERS: PCP Student in an Organized Health Care Education/Training Program; Visit Provider Surgery | DX: N30.41 Irradiation cystitis with hematuria (principal) | CPT/HCPCS: 99183; G0277 ==

== ENCOUNTER → 2022-07-30 14:51 | Outpatient (CLI) | payer MEDICARE, OTHER, SELFPAY | PROVIDERS: PCP Student in an Organized Health Care Education/Training Program; Referring Provider Urology; Visit Provider Nurse Practitioner Family | DX: N30.41 Irradiation cystitis with hematuria (principal); Y84.2 Radiological procedure and radiotherapy as the cause of abnormal reaction of the patient, or of later complication, without mention of misadventure at the time of the procedure; J44.9 Chronic obstructive pulmonary disease, unspecified; E11.00 Type 2 diabetes mellitus with hyperosmolarity without nonketotic hyperglycemic-hyperosmolar coma (NKHHC) | CPT/HCPCS: 99183; G0277 ==

== ENCOUNTER → 2022-07-31 12:17 | Outpatient (CLI) | payer MEDICARE, OTHER, SELFPAY | PROVIDERS: PCP Student in an Organized Health Care Education/Training Program; Referring Provider Urology; Visit Provider Nurse Practitioner Family | DX: N30.41 Irradiation cystitis with hematuria (principal); N45.1 Epididymitis; N43.3 Hydrocele, unspecified; Z92.89 Personal history of other medical treatment; Z97.8 Presence of other specified devices | CPT/HCPCS: 51702; 99183; 99213; G0277 ==

== ENCOUNTER → 2022-08-01 13:23 | Outpatient (CLI) | payer MEDICARE, OTHER, SELFPAY | PROVIDERS: PCP Student in an Organized Health Care Education/Training Program; Referring Provider Urology; Visit Provider Nurse Practitioner Family | DX: N30.41 Irradiation cystitis with hematuria (principal); Y84.2 Radiological procedure and radiotherapy as the cause of abnormal reaction of the patient, or of later complication, without mention of misadventure at the time of the procedure; J44.9 Chronic obstructive pulmonary disease, unspecified; E11.00 Type 2 diabetes mellitus with hyperosmolarity without nonketotic hyperglycemic-hyperosmolar coma (NKHHC) | CPT/HCPCS: 99183; G0277 ==

== ENCOUNTER → 2022-08-04 13:14 | Outpatient (CLI) | payer MEDICARE, OTHER, SELFPAY | PROVIDERS: PCP Student in an Organized Health Care Education/Training Program; Referring Provider Urology; Visit Provider Surgery | DX: N30.41 Irradiation cystitis with hematuria (principal); Y84.2 Radiological procedure and radiotherapy as the cause of abnormal reaction of the patient, or of later complication, without mention of misadventure at the time of the procedure; J44.9 Chronic obstructive pulmonary disease, unspecified; E11.00 Type 2 diabetes mellitus with hyperosmolarity without nonketotic hyperglycemic-hyperosmolar coma (NKHHC) | CPT/HCPCS: 99183; G0277 ==

== ENCOUNTER → 2022-08-05 13:15 | Outpatient (CLI) | payer MEDICARE, OTHER, SELFPAY | PROVIDERS: PCP Student in an Organized Health Care Education/Training Program; Visit Provider Surgery | DX: N30.41 Irradiation cystitis with hematuria (principal); Y84.2 Radiological procedure and radiotherapy as the cause of abnormal reaction of the patient, or of later complication, without mention of misadventure at the time of the procedure; J44.9 Chronic obstructive pulmonary disease, unspecified; E11.00 Type 2 diabetes mellitus with hyperosmolarity without nonketotic hyperglycemic-hyperosmolar coma (NKHHC) | CPT/HCPCS: 99183; G0277 ==

== ENCOUNTER → 2022-08-06 15:39 | Outpatient (CLI) | payer MEDICARE, OTHER, SELFPAY | PROVIDERS: PCP Student in an Organized Health Care Education/Training Program; Referring Provider Urology; Visit Provider Surgery | DX: N30.41 Irradiation cystitis with hematuria (principal); Y84.2 Radiological procedure and radiotherapy as the cause of abnormal reaction of the patient, or of later complication, without mention of misadventure at the time of the procedure; J44.9 Chronic obstructive pulmonary disease, unspecified; E11.00 Type 2 diabetes mellitus with hyperosmolarity without nonketotic hyperglycemic-hyperosmolar coma (NKHHC) | CPT/HCPCS: 99183; G0277 ==

== ENCOUNTER → 2022-08-07 13:17 | Outpatient (CLI) | payer MEDICARE, OTHER, SELFPAY | PROVIDERS: PCP Student in an Organized Health Care Education/Training Program; Visit Provider Surgery | DX: N30.41 Irradiation cystitis with hematuria (principal); Y84.2 Radiological procedure and radiotherapy as the cause of abnormal reaction of the patient, or of later complication, without mention of misadventure at the time of the procedure; J44.9 Chronic obstructive pulmonary disease, unspecified; E11.00 Type 2 diabetes mellitus with hyperosmolarity without nonketotic hyperglycemic-hyperosmolar coma (NKHHC) | CPT/HCPCS: 99183; G0277 ==

== ENCOUNTER → 2022-08-11 13:37 | Outpatient (CLI) | payer MEDICARE, OTHER, SELFPAY | PROVIDERS: PCP Student in an Organized Health Care Education/Training Program; Referring Provider Urology; Visit Provider Surgery | DX: N30.41 Irradiation cystitis with hematuria (principal); Y84.2 Radiological procedure and radiotherapy as the cause of abnormal reaction of the patient, or of later complication, without mention of misadventure at the time of the procedure; J44.9 Chronic obstructive pulmonary disease, unspecified; E11.00 Type 2 diabetes mellitus with hyperosmolarity without nonketotic hyperglycemic-hyperosmolar coma (NKHHC) | CPT/HCPCS: 99183; G0277 ==

== ENCOUNTER → 2022-08-12 13:22 | Outpatient (CLI) | payer MEDICARE, OTHER, SELFPAY | PROVIDERS: PCP Student in an Organized Health Care Education/Training Program; Visit Provider Surgery | DX: N30.41 Irradiation cystitis with hematuria (principal); Y84.2 Radiological procedure and radiotherapy as the cause of abnormal reaction of the patient, or of later complication, without mention of misadventure at the time of the procedure; J44.9 Chronic obstructive pulmonary disease, unspecified; E11.00 Type 2 diabetes mellitus with hyperosmolarity without nonketotic hyperglycemic-hyperosmolar coma (NKHHC) | CPT/HCPCS: 99183; G0277 ==

== ENCOUNTER → 2022-08-13 13:08 | Outpatient (CLI) | payer MEDICARE, OTHER, SELFPAY | PROVIDERS: PCP Student in an Organized Health Care Education/Training Program; Referring Provider Urology; Visit Provider Surgery | DX: N30.41 Irradiation cystitis with hematuria (principal); Y84.2 Radiological procedure and radiotherapy as the cause of abnormal reaction of the patient, or of later complication, without mention of misadventure at the time of the procedure; J44.9 Chronic obstructive pulmonary disease, unspecified; E11.00 Type 2 diabetes mellitus with hyperosmolarity without nonketotic hyperglycemic-hyperosmolar coma (NKHHC) | CPT/HCPCS: 99183; G0277 ==

== ENCOUNTER → 2022-08-14 13:27 | Outpatient (CLI) | payer MEDICARE, OTHER, SELFPAY | PROVIDERS: PCP Student in an Organized Health Care Education/Training Program; Referring Provider Urology; Visit Provider Surgery | DX: N30.41 Irradiation cystitis with hematuria (principal); L59.8 Other specified disorders of the skin and subcutaneous tissue related to radiation; E11.00 Type 2 diabetes mellitus with hyperosmolarity without nonketotic hyperglycemic-hyperosmolar coma (NKHHC) | CPT/HCPCS: 99183; 99212; 99214; G0277 ==

== ENCOUNTER → 2022-08-15 13:03 | Outpatient (CLI) | payer MEDICARE, OTHER, SELFPAY | PROVIDERS: PCP Student in an Organized Health Care Education/Training Program; Referring Provider Urology; Visit Provider Nurse Practitioner Family | DX: N30.41 Irradiation cystitis with hematuria (principal); E11.00 Type 2 diabetes mellitus with hyperosmolarity without nonketotic hyperglycemic-hyperosmolar coma (NKHHC) | CPT/HCPCS: 99183; G0277 ==

== ENCOUNTER → 2022-08-18 13:13 | Outpatient (CLI) | payer MEDICARE, OTHER, SELFPAY | PROVIDERS: PCP Student in an Organized Health Care Education/Training Program; Referring Provider Urology; Visit Provider Surgery | DX: N30.41 Irradiation cystitis with hematuria (principal); E11.00 Type 2 diabetes mellitus with hyperosmolarity without nonketotic hyperglycemic-hyperosmolar coma (NKHHC) | CPT/HCPCS: 99183; G0277 ==

== ENCOUNTER → 2022-08-19 13:19 | Outpatient (CLI) | payer MEDICARE, OTHER, SELFPAY | PROVIDERS: PCP Student in an Organized Health Care Education/Training Program; Visit Provider Surgery | DX: N30.41 Irradiation cystitis with hematuria (principal); Y84.2 Radiological procedure and radiotherapy as the cause of abnormal reaction of the patient, or of later complication, without mention of misadventure at the time of the procedure; J44.9 Chronic obstructive pulmonary disease, unspecified; E11.00 Type 2 diabetes mellitus with hyperosmolarity without nonketotic hyperglycemic-hyperosmolar coma (NKHHC) | CPT/HCPCS: 99183; G0277 ==

== ENCOUNTER → 2022-08-21 12:54 | Outpatient (CLI) | payer MEDICARE, OTHER, SELFPAY | PROVIDERS: PCP Student in an Organized Health Care Education/Training Program; Visit Provider Surgery | DX: N30.41 Irradiation cystitis with hematuria (principal); Y84.2 Radiological procedure and radiotherapy as the cause of abnormal reaction of the patient, or of later complication, without mention of misadventure at the time of the procedure; J44.9 Chronic obstructive pulmonary disease, unspecified; E11.00 Type 2 diabetes mellitus with hyperosmolarity without nonketotic hyperglycemic-hyperosmolar coma (NKHHC) | CPT/HCPCS: 99183; G0277 ==

== ENCOUNTER → 2022-08-22 13:10 | Outpatient (CLI) | payer MEDICARE, OTHER, SELFPAY | PROVIDERS: PCP Student in an Organized Health Care Education/Training Program; Referring Provider Urology; Visit Provider Nurse Practitioner Family | DX: N30.41 Irradiation cystitis with hematuria (principal); Y84.2 Radiological procedure and radiotherapy as the cause of abnormal reaction of the patient, or of later complication, without mention of misadventure at the time of the procedure; J44.9 Chronic obstructive pulmonary disease, unspecified; E11.00 Type 2 diabetes mellitus with hyperosmolarity without nonketotic hyperglycemic-hyperosmolar coma (NKHHC) | CPT/HCPCS: 99183; G0277 ==

== ENCOUNTER → 2022-08-25 13:27 | Outpatient (CLI) | payer MEDICARE, OTHER, SELFPAY | PROVIDERS: PCP Student in an Organized Health Care Education/Training Program; Referring Provider Urology; Visit Provider Surgery | DX: N30.41 Irradiation cystitis with hematuria (principal); Y84.2 Radiological procedure and radiotherapy as the cause of abnormal reaction of the patient, or of later complication, without mention of misadventure at the time of the procedure; J44.9 Chronic obstructive pulmonary disease, unspecified; E11.00 Type 2 diabetes mellitus with hyperosmolarity without nonketotic hyperglycemic-hyperosmolar coma (NKHHC) | CPT/HCPCS: 99183; G0277 ==

== ENCOUNTER → 2022-08-26 13:20 | Outpatient (CLI) | payer MEDICARE, OTHER, SELFPAY | PROVIDERS: PCP Student in an Organized Health Care Education/Training Program; Visit Provider Surgery | DX: N30.41 Irradiation cystitis with hematuria (principal); Y84.2 Radiological procedure and radiotherapy as the cause of abnormal reaction of the patient, or of later complication, without mention of misadventure at the time of the procedure; J44.9 Chronic obstructive pulmonary disease, unspecified; E11.00 Type 2 diabetes mellitus with hyperosmolarity without nonketotic hyperglycemic-hyperosmolar coma (NKHHC) | CPT/HCPCS: 99183; G0277 ==

== ENCOUNTER → 2022-08-27 13:30 | Outpatient (CLI) | payer MEDICARE, OTHER, SELFPAY | PROVIDERS: PCP Student in an Organized Health Care Education/Training Program; Referring Provider Urology; Visit Provider Surgery | DX: N30.41 Irradiation cystitis with hematuria (principal); Y84.2 Radiological procedure and radiotherapy as the cause of abnormal reaction of the patient, or of later complication, without mention of misadventure at the time of the procedure; J44.9 Chronic obstructive pulmonary disease, unspecified; E11.00 Type 2 diabetes mellitus with hyperosmolarity without nonketotic hyperglycemic-hyperosmolar coma (NKHHC) | CPT/HCPCS: 99183; G0277 ==

== ENCOUNTER → 2022-08-28 13:31 | Outpatient (CLI) | payer MEDICARE, OTHER, SELFPAY | PROVIDERS: PCP Student in an Organized Health Care Education/Training Program; Visit Provider Surgery | DX: N30.41 Irradiation cystitis with hematuria (principal); Y84.2 Radiological procedure and radiotherapy as the cause of abnormal reaction of the patient, or of later complication, without mention of misadventure at the time of the procedure; J44.9 Chronic obstructive pulmonary disease, unspecified; E11.00 Type 2 diabetes mellitus with hyperosmolarity without nonketotic hyperglycemic-hyperosmolar coma (NKHHC) | CPT/HCPCS: 99183; G0277 ==

== ENCOUNTER → 2022-08-29 13:14 | Outpatient (CLI) | payer MEDICARE, OTHER, SELFPAY | PROVIDERS: PCP Student in an Organized Health Care Education/Training Program; Referring Provider Urology; Visit Provider Nurse Practitioner Family | DX: N30.41 Irradiation cystitis with hematuria (principal); Y84.2 Radiological procedure and radiotherapy as the cause of abnormal reaction of the patient, or of later complication, without mention of misadventure at the time of the procedure; J44.9 Chronic obstructive pulmonary disease, unspecified; E11.00 Type 2 diabetes mellitus with hyperosmolarity without nonketotic hyperglycemic-hyperosmolar coma (NKHHC) | CPT/HCPCS: 99183; G0277 ==

== ENCOUNTER → 2022-09-01 13:04 | Outpatient (CLI) | payer MEDICARE, OTHER, SELFPAY | PROVIDERS: PCP Student in an Organized Health Care Education/Training Program; Referring Provider Urology; Visit Provider Surgery | DX: N30.41 Irradiation cystitis with hematuria (principal); C61 Malignant neoplasm of prostate | CPT/HCPCS: 99183; 99212; 99213; G0277 ==

== ENCOUNTER → 2022-09-02 10:32 | Outpatient (CLI) | payer MEDICARE, OTHER, SELFPAY | PROVIDERS: PCP Student in an Organized Health Care Education/Training Program; Visit Provider Urology | DX: R31.0 Gross hematuria (principal); R33.9 Retention of urine, unspecified | CPT/HCPCS: 87077; 87086 ==

== ENCOUNTER → 2022-09-02 11:22 | Outpatient (CLI) | payer MEDICARE, OTHER, SELFPAY | PROVIDERS: PCP Student in an Organized Health Care Education/Training Program; Referring Provider Urology; Visit Provider Surgery | DX: R31.0 Gross hematuria (principal); R33.9 Retention of urine, unspecified; N30.41 Irradiation cystitis with hematuria; Y84.2 Radiological procedure and radiotherapy as the cause of abnormal reaction of the patient, or of later complication, without mention of misadventure at the time of the procedure; J44.9 Chronic obstructive pulmonary disease, unspecified; E11.00 Type 2 diabetes mellitus with hyperosmolarity without nonketotic hyperglycemic-hyperosmolar coma (NKHHC) | CPT/HCPCS: 51702; 87077; 87086; 99183; G0277 ==

== ENCOUNTER → 2022-09-03 14:13 | Outpatient (CLI) | payer MEDICARE, OTHER, SELFPAY | PROVIDERS: PCP Student in an Organized Health Care Education/Training Program; Referring Provider Urology; Visit Provider Surgery | DX: N30.41 Irradiation cystitis with hematuria (principal); Y84.2 Radiological procedure and radiotherapy as the cause of abnormal reaction of the patient, or of later complication, without mention of misadventure at the time of the procedure; J44.9 Chronic obstructive pulmonary disease, unspecified; E11.00 Type 2 diabetes mellitus with hyperosmolarity without nonketotic hyperglycemic-hyperosmolar coma (NKHHC) | CPT/HCPCS: 99183; G0277 ==

== ENCOUNTER → 2022-09-04 13:12 | Outpatient (CLI) | payer MEDICARE, OTHER, SELFPAY | PROVIDERS: PCP Student in an Organized Health Care Education/Training Program; Visit Provider Surgery | DX: N30.41 Irradiation cystitis with hematuria (principal); Y84.2 Radiological procedure and radiotherapy as the cause of abnormal reaction of the patient, or of later complication, without mention of misadventure at the time of the procedure; J44.9 Chronic obstructive pulmonary disease, unspecified; E11.00 Type 2 diabetes mellitus with hyperosmolarity without nonketotic hyperglycemic-hyperosmolar coma (NKHHC) | CPT/HCPCS: 99183; G0277 ==

== ENCOUNTER → 2022-09-05 12:54 | Outpatient (CLI) | payer MEDICARE, OTHER, SELFPAY | PROVIDERS: PCP Student in an Organized Health Care Education/Training Program; Referring Provider Urology; Visit Provider Nurse Practitioner Family | DX: N30.41 Irradiation cystitis with hematuria (principal); Y84.2 Radiological procedure and radiotherapy as the cause of abnormal reaction of the patient, or of later complication, without mention of misadventure at the time of the procedure; J44.9 Chronic obstructive pulmonary disease, unspecified; E11.00 Type 2 diabetes mellitus with hyperosmolarity without nonketotic hyperglycemic-hyperosmolar coma (NKHHC) | CPT/HCPCS: 99183; G0277 ==

== ENCOUNTER → 2022-09-08 14:13 | Outpatient (CLI) | payer MEDICARE, OTHER, SELFPAY | PROVIDERS: PCP Student in an Organized Health Care Education/Training Program; Referring Provider Urology; Visit Provider Surgery | DX: N30.41 Irradiation cystitis with hematuria (principal); Y84.2 Radiological procedure and radiotherapy as the cause of abnormal reaction of the patient, or of later complication, without mention of misadventure at the time of the procedure; J44.9 Chronic obstructive pulmonary disease, unspecified; E11.00 Type 2 diabetes mellitus with hyperosmolarity without nonketotic hyperglycemic-hyperosmolar coma (NKHHC) | CPT/HCPCS: 99183; G0277 ==

== ENCOUNTER → 2022-09-09 14:18 | Outpatient (CLI) | payer MEDICARE, OTHER, SELFPAY | PROVIDERS: PCP Student in an Organized Health Care Education/Training Program; Referring Provider Urology; Visit Provider Surgery | DX: N30.41 Irradiation cystitis with hematuria (principal); Y84.2 Radiological procedure and radiotherapy as the cause of abnormal reaction of the patient, or of later complication, without mention of misadventure at the time of the procedure; J44.9 Chronic obstructive pulmonary disease, unspecified; E11.00 Type 2 diabetes mellitus with hyperosmolarity without nonketotic hyperglycemic-hyperosmolar coma (NKHHC) | CPT/HCPCS: 99183; G0277 ==

== ENCOUNTER → 2022-09-10 13:22 | Outpatient (CLI) | payer MEDICARE, OTHER, SELFPAY | PROVIDERS: PCP Student in an Organized Health Care Education/Training Program; Referring Provider Urology; Visit Provider Surgery | DX: N30.41 Irradiation cystitis with hematuria (principal); Y84.2 Radiological procedure and radiotherapy as the cause of abnormal reaction of the patient, or of later complication, without mention of misadventure at the time of the procedure; J44.9 Chronic obstructive pulmonary disease, unspecified; E11.00 Type 2 diabetes mellitus with hyperosmolarity without nonketotic hyperglycemic-hyperosmolar coma (NKHHC) | CPT/HCPCS: 99183; G0277 ==

== ENCOUNTER → 2022-09-11 13:15 | Outpatient (CLI) | payer MEDICARE, OTHER, SELFPAY | PROVIDERS: PCP Student in an Organized Health Care Education/Training Program; Referring Provider Student in an Organized Health Care Education/Training Program; Visit Provider Surgery | DX: N30.41 Irradiation cystitis with hematuria (principal); Y84.2 Radiological procedure and radiotherapy as the cause of abnormal reaction of the patient, or of later complication, without mention of misadventure at the time of the procedure; J44.9 Chronic obstructive pulmonary disease, unspecified; E11.00 Type 2 diabetes mellitus with hyperosmolarity without nonketotic hyperglycemic-hyperosmolar coma (NKHHC) | CPT/HCPCS: 99183; G0277 ==

== ENCOUNTER → 2022-09-12 13:58 | Outpatient (CLI) | payer MEDICARE, OTHER, SELFPAY | PROVIDERS: PCP Student in an Organized Health Care Education/Training Program; Referring Provider Student in an Organized Health Care Education/Training Program; Visit Provider Physician Assistant | DX: N30.41 Irradiation cystitis with hematuria (principal); Y84.2 Radiological procedure and radiotherapy as the cause of abnormal reaction of the patient, or of later complication, without mention of misadventure at the time of the procedure; J44.9 Chronic obstructive pulmonary disease, unspecified; E11.00 Type 2 diabetes mellitus with hyperosmolarity without nonketotic hyperglycemic-hyperosmolar coma (NKHHC) | CPT/HCPCS: 99183; G0277 ==

== ENCOUNTER → 2022-09-15 14:12 | Outpatient (CLI) | payer MEDICARE, OTHER, SELFPAY | PROVIDERS: PCP Student in an Organized Health Care Education/Training Program; Referring Provider Urology; Visit Provider Surgery | DX: N30.41 Irradiation cystitis with hematuria (principal); Y84.2 Radiological procedure and radiotherapy as the cause of abnormal reaction of the patient, or of later complication, without mention of misadventure at the time of the procedure; J44.9 Chronic obstructive pulmonary disease, unspecified; E11.00 Type 2 diabetes mellitus with hyperosmolarity without nonketotic hyperglycemic-hyperosmolar coma (NKHHC) | CPT/HCPCS: 99183; G0277 ==

== ENCOUNTER → 2022-10-03 11:05 | Outpatient (CLI) | payer MEDICARE, OTHER, SELFPAY | PROVIDERS: PCP Student in an Organized Health Care Education/Training Program; Visit Provider Urology | DX: N30.41 Irradiation cystitis with hematuria (principal); R33.9 Retention of urine, unspecified; R31.0 Gross hematuria; Z92.89 Personal history of other medical treatment | CPT/HCPCS: 51702; 87086 ==

== ENCOUNTER → 2022-10-09 09:49 | Outpatient (CLI) | payer MEDICARE, OTHER, SELFPAY | PROVIDERS: PCP Student in an Organized Health Care Education/Training Program; Referring Provider Specialist; Visit Provider Surgery | DX: Z85.46 Personal history of malignant neoplasm of prostate (principal); L59.8 Other specified disorders of the skin and subcutaneous tissue related to radiation; N30.41 Irradiation cystitis with hematuria; Y84.2 Radiological procedure and radiotherapy as the cause of abnormal reaction of the patient, or of later complication, without mention of misadventure at the time of the procedure; J44.9 Chronic obstructive pulmonary disease, unspecified; Z92.89 Personal history of other medical treatment; Z97.8 Presence of other specified devices | CPT/HCPCS: 36415; 84153; 99212; 99214; 99215 ==

== ENCOUNTER → 2022-10-09 13:47 | Outpatient (CLI) | payer MEDICARE, OTHER, SELFPAY | PROVIDERS: PCP Student in an Organized Health Care Education/Training Program; Referring Provider Urology; Visit Provider Urology | DX: Z85.46 Personal history of malignant neoplasm of prostate (principal) | CPT/HCPCS: 36415; 84153 ==

== ENCOUNTER → 2022-10-20 14:36 | Outpatient (CLI) | payer MEDICARE, OTHER, SELFPAY | PROVIDERS: PCP Student in an Organized Health Care Education/Training Program; Referring Provider Urology; Visit Provider Surgery | DX: N30.41 Irradiation cystitis with hematuria (principal); Y84.2 Radiological procedure and radiotherapy as the cause of abnormal reaction of the patient, or of later complication, without mention of misadventure at the time of the procedure; L59.8 Other specified disorders of the skin and subcutaneous tissue related to radiation; J44.9 Chronic obstructive pulmonary disease, unspecified | CPT/HCPCS: 99183; G0277 ==

== ENCOUNTER → 2022-10-21 15:10 | Outpatient (CLI) | payer MEDICARE, OTHER, SELFPAY | PROVIDERS: PCP Student in an Organized Health Care Education/Training Program; Referring Provider Urology; Visit Provider Surgery | DX: N30.41 Irradiation cystitis with hematuria (principal); Y84.2 Radiological procedure and radiotherapy as the cause of abnormal reaction of the patient, or of later complication, without mention of misadventure at the time of the procedure; L59.8 Other specified disorders of the skin and subcutaneous tissue related to radiation; J44.9 Chronic obstructive pulmonary disease, unspecified | CPT/HCPCS: 99183; G0277 ==

== ENCOUNTER → 2022-10-22 14:08 | Outpatient (CLI) | payer MEDICARE, OTHER, SELFPAY | PROVIDERS: PCP Student in an Organized Health Care Education/Training Program; Referring Provider Urology; Visit Provider Surgery | DX: N30.41 Irradiation cystitis with hematuria (principal); Y84.2 Radiological procedure and radiotherapy as the cause of abnormal reaction of the patient, or of later complication, without mention of misadventure at the time of the procedure; L59.8 Other specified disorders of the skin and subcutaneous tissue related to radiation; J44.9 Chronic obstructive pulmonary disease, unspecified | CPT/HCPCS: 99183; G0277 ==

== ENCOUNTER → 2022-10-23 12:37 | Outpatient (CLI) | payer MEDICARE, OTHER, SELFPAY | PROVIDERS: PCP Student in an Organized Health Care Education/Training Program; Referring Provider Urology; Visit Provider Surgery | DX: N30.41 Irradiation cystitis with hematuria (principal); Y84.2 Radiological procedure and radiotherapy as the cause of abnormal reaction of the patient, or of later complication, without mention of misadventure at the time of the procedure; L59.8 Other specified disorders of the skin and subcutaneous tissue related to radiation; J44.9 Chronic obstructive pulmonary disease, unspecified | CPT/HCPCS: 99183; G0277 ==

== ENCOUNTER → 2022-10-27 13:40 | Outpatient (CLI) | payer MEDICARE, OTHER, SELFPAY | PROVIDERS: PCP Student in an Organized Health Care Education/Training Program; Referring Provider Urology; Visit Provider Surgery | DX: N30.41 Irradiation cystitis with hematuria (principal); Y84.2 Radiological procedure and radiotherapy as the cause of abnormal reaction of the patient, or of later complication, without mention of misadventure at the time of the procedure; L59.8 Other specified disorders of the skin and subcutaneous tissue related to radiation; J44.9 Chronic obstructive pulmonary disease, unspecified | CPT/HCPCS: 99183; G0277 ==

== ENCOUNTER → 2022-10-29 13:21 | Outpatient (CLI) | payer MEDICARE, OTHER, SELFPAY | PROVIDERS: PCP Student in an Organized Health Care Education/Training Program; Referring Provider Urology; Visit Provider Surgery | DX: N30.41 Irradiation cystitis with hematuria (principal); Y84.2 Radiological procedure and radiotherapy as the cause of abnormal reaction of the patient, or of later complication, without mention of misadventure at the time of the procedure; L59.8 Other specified disorders of the skin and subcutaneous tissue related to radiation; J44.9 Chronic obstructive pulmonary disease, unspecified | CPT/HCPCS: 99183; G0277 ==

== ENCOUNTER → 2022-10-30 12:50 | Outpatient (CLI) | payer MEDICARE, OTHER, SELFPAY | PROVIDERS: PCP Student in an Organized Health Care Education/Training Program; Referring Provider Urology; Visit Provider Surgery | DX: N30.41 Irradiation cystitis with hematuria (principal); Y84.2 Radiological procedure and radiotherapy as the cause of abnormal reaction of the patient, or of later complication, without mention of misadventure at the time of the procedure; L59.8 Other specified disorders of the skin and subcutaneous tissue related to radiation; J44.9 Chronic obstructive pulmonary disease, unspecified | CPT/HCPCS: 99183; G0277 ==

== ENCOUNTER → 2022-10-31 11:08 | Outpatient (CLI) | payer MEDICARE, OTHER, SELFPAY | PROVIDERS: PCP Student in an Organized Health Care Education/Training Program; Referring Provider Urology; Visit Provider Physician Assistant | DX: N30.41 Irradiation cystitis with hematuria (principal); Y84.2 Radiological procedure and radiotherapy as the cause of abnormal reaction of the patient, or of later complication, without mention of misadventure at the time of the procedure; L59.8 Other specified disorders of the skin and subcutaneous tissue related to radiation; J44.9 Chronic obstructive pulmonary disease, unspecified | CPT/HCPCS: 99183; G0277 ==

== ENCOUNTER → 2022-11-03 10:27 | Outpatient (CLI) | payer MEDICARE, OTHER, SELFPAY | PROVIDERS: PCP Student in an Organized Health Care Education/Training Program; Visit Provider Specialist | DX: N30.41 Irradiation cystitis with hematuria (principal); R31.0 Gross hematuria; R33.9 Retention of urine, unspecified; Z85.46 Personal history of malignant neoplasm of prostate; Z92.89 Personal history of other medical treatment; Z97.8 Presence of other specified devices | CPT/HCPCS: 87077; 87086 ==

== ENCOUNTER → 2022-11-03 10:32 | Outpatient (CLI) | payer MEDICARE, OTHER, SELFPAY ==
[2022-11-03 12:25] LABS: Prostate Specific Antigen 0.221 ng/mL (0.10-4.00)
== END ==
PROVIDERS: PCP Student in an Organized Health Care Education/Training Program; Referring Provider Radiology Radiation Oncology; Visit Provider Radiology Radiation Oncology
DX: C61 Malignant neoplasm of prostate (principal)
CPT/HCPCS: 36415; 84153

== ENCOUNTER → 2022-11-03 11:08 | Outpatient (CLI) | payer MEDICARE, OTHER, SELFPAY | PROVIDERS: PCP Student in an Organized Health Care Education/Training Program; Referring Provider Urology; Visit Provider Surgery | DX: C61 Malignant neoplasm of prostate (principal); Z97.8 Presence of other specified devices; Z85.46 Personal history of malignant neoplasm of prostate; Z92.89 Personal history of other medical treatment; R31.0 Gross hematuria; R33.9 Retention of urine, unspecified; N30.41 Irradiation cystitis with hematuria; Y84.2 Radiological procedure and radiotherapy as the cause of abnormal reaction of the patient, or of later complication, without mention of misadventure at the time of the procedure; L59.8 Other specified disorders of the skin and subcutaneous tissue related to radiation; J44.9 Chronic obstructive pulmonary disease, unspecified | CPT/HCPCS: 36415; 51702; 84153; 87077; 87086; 99183; G0277 ==

== ENCOUNTER → 2022-11-04 13:28 | Outpatient (CLI) | payer MEDICARE, OTHER, SELFPAY | PROVIDERS: PCP Student in an Organized Health Care Education/Training Program; Referring Provider Urology; Visit Provider Surgery | DX: N30.41 Irradiation cystitis with hematuria (principal); Y84.2 Radiological procedure and radiotherapy as the cause of abnormal reaction of the patient, or of later complication, without mention of misadventure at the time of the procedure; L59.8 Other specified disorders of the skin and subcutaneous tissue related to radiation; J44.9 Chronic obstructive pulmonary disease, unspecified | CPT/HCPCS: 99183; G0277 ==

== ENCOUNTER → 2022-11-05 13:50 | Outpatient (CLI) | payer MEDICARE, OTHER, SELFPAY | PROVIDERS: PCP Student in an Organized Health Care Education/Training Program; Referring Provider Urology; Visit Provider Surgery | DX: N30.41 Irradiation cystitis with hematuria (principal); Y84.2 Radiological procedure and radiotherapy as the cause of abnormal reaction of the patient, or of later complication, without mention of misadventure at the time of the procedure; L59.8 Other specified disorders of the skin and subcutaneous tissue related to radiation; J44.9 Chronic obstructive pulmonary disease, unspecified | CPT/HCPCS: 99183; G0277 ==

== ENCOUNTER → 2022-11-06 13:25 | Outpatient (CLI) | payer MEDICARE, OTHER, SELFPAY | PROVIDERS: PCP Student in an Organized Health Care Education/Training Program; Referring Provider Urology; Visit Provider Surgery | DX: N30.41 Irradiation cystitis with hematuria (principal); Y84.2 Radiological procedure and radiotherapy as the cause of abnormal reaction of the patient, or of later complication, without mention of misadventure at the time of the procedure; L59.8 Other specified disorders of the skin and subcutaneous tissue related to radiation; J44.9 Chronic obstructive pulmonary disease, unspecified | CPT/HCPCS: 99183; G0277 ==

== ENCOUNTER → 2022-11-07 10:08 | Outpatient (CLI) | payer MEDICARE, OTHER, SELFPAY | PROVIDERS: PCP Student in an Organized Health Care Education/Training Program; Referring Provider Urology; Visit Provider Physician Assistant | DX: N30.41 Irradiation cystitis with hematuria (principal); Y84.2 Radiological procedure and radiotherapy as the cause of abnormal reaction of the patient, or of later complication, without mention of misadventure at the time of the procedure; L59.8 Other specified disorders of the skin and subcutaneous tissue related to radiation; J44.9 Chronic obstructive pulmonary disease, unspecified | CPT/HCPCS: 99183; G0277 ==

== ENCOUNTER → 2022-11-11 13:19 | Outpatient (CLI) | payer MEDICARE, OTHER, SELFPAY | PROVIDERS: PCP Student in an Organized Health Care Education/Training Program; Referring Provider Urology; Visit Provider Surgery | DX: N30.41 Irradiation cystitis with hematuria (principal); Y84.2 Radiological procedure and radiotherapy as the cause of abnormal reaction of the patient, or of later complication, without mention of misadventure at the time of the procedure; L59.8 Other specified disorders of the skin and subcutaneous tissue related to radiation; J44.9 Chronic obstructive pulmonary disease, unspecified | CPT/HCPCS: 99183; G0277 ==

== ENCOUNTER → 2022-11-12 13:56 | Outpatient (CLI) | payer MEDICARE, OTHER, SELFPAY | PROVIDERS: PCP Student in an Organized Health Care Education/Training Program; Referring Provider Urology; Visit Provider Surgery | DX: N30.41 Irradiation cystitis with hematuria (principal); Y84.2 Radiological procedure and radiotherapy as the cause of abnormal reaction of the patient, or of later complication, without mention of misadventure at the time of the procedure; L59.8 Other specified disorders of the skin and subcutaneous tissue related to radiation; J44.9 Chronic obstructive pulmonary disease, unspecified | CPT/HCPCS: 99183; G0277 ==

== ENCOUNTER → 2022-11-13 14:23 | Outpatient (CLI) | payer MEDICARE, OTHER, SELFPAY | PROVIDERS: PCP Student in an Organized Health Care Education/Training Program; Referring Provider Urology; Visit Provider Surgery | DX: N30.41 Irradiation cystitis with hematuria (principal); Y84.2 Radiological procedure and radiotherapy as the cause of abnormal reaction of the patient, or of later complication, without mention of misadventure at the time of the procedure; L59.8 Other specified disorders of the skin and subcutaneous tissue related to radiation; J44.9 Chronic obstructive pulmonary disease, unspecified | CPT/HCPCS: 99183; G0277 ==

== ENCOUNTER → 2022-11-14 14:07 | Outpatient (CLI) | payer MEDICARE, OTHER, SELFPAY | PROVIDERS: PCP Student in an Organized Health Care Education/Training Program; Referring Provider Urology; Visit Provider Physician Assistant | DX: N30.41 Irradiation cystitis with hematuria (principal); Y84.2 Radiological procedure and radiotherapy as the cause of abnormal reaction of the patient, or of later complication, without mention of misadventure at the time of the procedure; L59.8 Other specified disorders of the skin and subcutaneous tissue related to radiation; J44.9 Chronic obstructive pulmonary disease, unspecified | CPT/HCPCS: 99183; G0277 ==

== ENCOUNTER → 2022-11-20 11:55 | Outpatient (CLI) | payer MEDICARE, OTHER, SELFPAY | PROVIDERS: PCP Student in an Organized Health Care Education/Training Program; Referring Provider Urology; Visit Provider Physician Assistant | DX: N30.41 Irradiation cystitis with hematuria (principal); Y84.2 Radiological procedure and radiotherapy as the cause of abnormal reaction of the patient, or of later complication, without mention of misadventure at the time of the procedure; L59.8 Other specified disorders of the skin and subcutaneous tissue related to radiation; J44.9 Chronic obstructive pulmonary disease, unspecified | CPT/HCPCS: 99183; G0277 ==

== ENCOUNTER → 2022-11-24 10:39 | Outpatient (CLI) | payer MEDICARE, OTHER, SELFPAY | PROVIDERS: PCP Student in an Organized Health Care Education/Training Program; Referring Provider Urology; Visit Provider Surgery | DX: N30.41 Irradiation cystitis with hematuria (principal); Y84.2 Radiological procedure and radiotherapy as the cause of abnormal reaction of the patient, or of later complication, without mention of misadventure at the time of the procedure; L59.8 Other specified disorders of the skin and subcutaneous tissue related to radiation; J44.9 Chronic obstructive pulmonary disease, unspecified | CPT/HCPCS: 99183; 99212; 99213; G0277 ==

== ENCOUNTER → 2022-11-25 09:45 | Outpatient (CLI) | payer MEDICARE, OTHER, SELFPAY | PROVIDERS: PCP Student in an Organized Health Care Education/Training Program; Referring Provider Student in an Organized Health Care Education/Training Program; Visit Provider Surgery | DX: N30.41 Irradiation cystitis with hematuria (principal); Y84.2 Radiological procedure and radiotherapy as the cause of abnormal reaction of the patient, or of later complication, without mention of misadventure at the time of the procedure; L59.8 Other specified disorders of the skin and subcutaneous tissue related to radiation; J44.9 Chronic obstructive pulmonary disease, unspecified | CPT/HCPCS: 99183; G0277 ==

== ENCOUNTER → 2022-11-26 12:06 | Outpatient (CLI) | payer MEDICARE, OTHER, SELFPAY | PROVIDERS: PCP Student in an Organized Health Care Education/Training Program; Referring Provider Urology; Visit Provider Surgery | DX: N30.41 Irradiation cystitis with hematuria (principal); Y84.2 Radiological procedure and radiotherapy as the cause of abnormal reaction of the patient, or of later complication, without mention of misadventure at the time of the procedure; L59.8 Other specified disorders of the skin and subcutaneous tissue related to radiation; J44.9 Chronic obstructive pulmonary disease, unspecified | CPT/HCPCS: 99183; G0277 ==

== ENCOUNTER → 2022-11-27 13:00 | Outpatient (CLI) | payer MEDICARE, OTHER, SELFPAY | PROVIDERS: PCP Student in an Organized Health Care Education/Training Program; Referring Provider Urology; Visit Provider Surgery | DX: N30.41 Irradiation cystitis with hematuria (principal); Y84.2 Radiological procedure and radiotherapy as the cause of abnormal reaction of the patient, or of later complication, without mention of misadventure at the time of the procedure; L59.8 Other specified disorders of the skin and subcutaneous tissue related to radiation; J44.9 Chronic obstructive pulmonary disease, unspecified | CPT/HCPCS: 99183; G0277 ==

== ENCOUNTER → 2022-11-28 10:47 | Outpatient (CLI) | payer MEDICARE, OTHER, SELFPAY | PROVIDERS: PCP Student in an Organized Health Care Education/Training Program; Referring Provider Urology; Visit Provider Physician Assistant | DX: N30.41 Irradiation cystitis with hematuria (principal); Y84.2 Radiological procedure and radiotherapy as the cause of abnormal reaction of the patient, or of later complication, without mention of misadventure at the time of the procedure; L59.8 Other specified disorders of the skin and subcutaneous tissue related to radiation; J44.9 Chronic obstructive pulmonary disease, unspecified | CPT/HCPCS: 99183; G0277 ==

== ENCOUNTER → 2022-12-01 12:53 | Outpatient (CLI) | payer MEDICARE, OTHER, SELFPAY | PROVIDERS: PCP Student in an Organized Health Care Education/Training Program; Referring Provider Urology; Visit Provider Surgery | DX: N30.41 Irradiation cystitis with hematuria (principal); Y84.2 Radiological procedure and radiotherapy as the cause of abnormal reaction of the patient, or of later complication, without mention of misadventure at the time of the procedure; L59.8 Other specified disorders of the skin and subcutaneous tissue related to radiation; J44.9 Chronic obstructive pulmonary disease, unspecified | CPT/HCPCS: 99183; G0277 ==

== ENCOUNTER → 2022-12-02 10:49 | Outpatient (CLI) | payer MEDICARE, OTHER, SELFPAY | PROVIDERS: PCP Student in an Organized Health Care Education/Training Program; Visit Provider Urology | DX: N30.41 Irradiation cystitis with hematuria (principal); R31.0 Gross hematuria; R33.9 Retention of urine, unspecified; Z97.8 Presence of other specified devices | CPT/HCPCS: 87086 ==

== ENCOUNTER → 2022-12-02 13:23 | Outpatient (CLI) | payer MEDICARE, OTHER, SELFPAY | PROVIDERS: PCP Student in an Organized Health Care Education/Training Program; Referring Provider Urology; Visit Provider Surgery | DX: N30.41 Irradiation cystitis with hematuria (principal); R31.0 Gross hematuria; R33.9 Retention of urine, unspecified; Z97.8 Presence of other specified devices; Y84.2 Radiological procedure and radiotherapy as the cause of abnormal reaction of the patient, or of later complication, without mention of misadventure at the time of the procedure; L59.8 Other specified disorders of the skin and subcutaneous tissue related to radiation; J44.9 Chronic obstructive pulmonary disease, unspecified | CPT/HCPCS: 51702; 87077; 87086; 87186; 99183; G0277 ==

== ENCOUNTER → 2022-12-03 12:38 | Outpatient (CLI) | payer MEDICARE, OTHER, SELFPAY | PROVIDERS: PCP Student in an Organized Health Care Education/Training Program; Referring Provider Urology; Visit Provider Surgery | DX: N30.41 Irradiation cystitis with hematuria (principal); Y84.2 Radiological procedure and radiotherapy as the cause of abnormal reaction of the patient, or of later complication, without mention of misadventure at the time of the procedure; L59.8 Other specified disorders of the skin and subcutaneous tissue related to radiation; J44.9 Chronic obstructive pulmonary disease, unspecified | CPT/HCPCS: 99183; G0277 ==

== ENCOUNTER → 2022-12-04 12:53 | Outpatient (CLI) | payer MEDICARE, OTHER, SELFPAY | PROVIDERS: PCP Student in an Organized Health Care Education/Training Program; Referring Provider Urology; Visit Provider Surgery | DX: N30.41 Irradiation cystitis with hematuria (principal); Y84.2 Radiological procedure and radiotherapy as the cause of abnormal reaction of the patient, or of later complication, without mention of misadventure at the time of the procedure; L59.8 Other specified disorders of the skin and subcutaneous tissue related to radiation; J44.9 Chronic obstructive pulmonary disease, unspecified | CPT/HCPCS: 99183; G0277 ==

== ENCOUNTER → 2022-12-08 14:29 | Outpatient (CLI) | payer MEDICARE, OTHER, SELFPAY | PROVIDERS: PCP Student in an Organized Health Care Education/Training Program; Referring Provider Urology; Visit Provider Surgery | DX: N30.41 Irradiation cystitis with hematuria (principal); Y84.2 Radiological procedure and radiotherapy as the cause of abnormal reaction of the patient, or of later complication, without mention of misadventure at the time of the procedure; L59.8 Other specified disorders of the skin and subcutaneous tissue related to radiation; J44.9 Chronic obstructive pulmonary disease, unspecified | CPT/HCPCS: 99183; G0277 ==

== ENCOUNTER → 2022-12-09 13:22 | Outpatient (CLI) | payer MEDICARE, OTHER, SELFPAY | PROVIDERS: PCP Student in an Organized Health Care Education/Training Program; Referring Provider Urology; Visit Provider Surgery | DX: N30.41 Irradiation cystitis with hematuria (principal); Y84.2 Radiological procedure and radiotherapy as the cause of abnormal reaction of the patient, or of later complication, without mention of misadventure at the time of the procedure; L59.8 Other specified disorders of the skin and subcutaneous tissue related to radiation; J44.9 Chronic obstructive pulmonary disease, unspecified | CPT/HCPCS: 99183; G0277 ==

== ENCOUNTER → 2022-12-11 13:03 | Outpatient (CLI) | payer MEDICARE, OTHER, SELFPAY | PROVIDERS: PCP Student in an Organized Health Care Education/Training Program; Referring Provider Urology; Visit Provider Surgery | DX: L59.8 Other specified disorders of the skin and subcutaneous tissue related to radiation (principal); N30.41 Irradiation cystitis with hematuria; Y84.2 Radiological procedure and radiotherapy as the cause of abnormal reaction of the patient, or of later complication, without mention of misadventure at the time of the procedure; J44.9 Chronic obstructive pulmonary disease, unspecified | CPT/HCPCS: 99183; 99212; 99213; G0277 ==

== ENCOUNTER 2023-04-02 18:21 | Inpatient (IN) | payer MEDICARE, OTHER, SELFPAY ==
[2023-04-02] VITALS (8 sets, daily range): BP systolic 110–127; BP diastolic 57–70; PULSE 74–98; RESP 15–22; TEMP 36.3–36.7; O2SAT 98–100; BMI 34.7
[2023-04-02 21:34] LABS: Basophils Absolute Auto 100 /uL (0-100); Basophils Percent Auto 0.7 % (0-2); Eosinophils Absolute Auto 200 /uL (0-450); Lymphocytes Absolute Auto 1000 /uL (1100-4500); Lymphocytes Percent Auto 12.3 % (25-40); Mean Corpuscular HGB Conc 31.3 % (30-36); Mean Corpuscular Hemoglobin 29.4 PG (26-34); Mean Corpuscular Volume 93.9 fL (80-100); Monocytes Absolute Auto 600 /uL (0-900); Monocytes Percent Auto 7.6 % (3-14); Neutrophils Absolute Auto 6400 /uL (1500-7000); Neutrophils Percent Auto 77.4 % (50-75); Platelet Count 354 X10^3/uL (150-400); Red Blood Cell Count 2.04 X10^6/uL (4.5-5.9); Red Cell Distribution Width 17.7 % (11.6-14.8); White Blood Cell Count 8.2 X10^3/uL (4.5-11.0)
[2023-04-02 21:43] LABS: Hematocrit 19.2 % (41-53)
[2023-04-02 21:44] LABS: Add Manual Diff / Slide Review SLIDE REVIEW; Alanine Aminotransferase 21 IU/L (<50); Albumin 4.1 g/dL (3.5-5.0); Albumin Globulin Ratio 1.2 (1.0-2.8); Alkaline Phosphatase 68 U/L (38-126); Aspartate Aminotransferase 44 IU/L (17-59); BUN Creatinine Ratio 24.7 (6-22); Bilirubin Total 0.7 mg/dL (0.2-1.3); Blood Urea Nitrogen 21 mg/dL (9-20); Carbon Dioxide 34 mmol/L (22-32); Chloride 97 mmol/L (98-107); Estimated Glomerular Filt Rate > 60 mL/min (>60); Globulin 3.3 g/dL (1.7-4.1); Glucose 150 mg/dL (80-110); HEMOLYSIS 42 (0-50); Potassium 4.9 mmol/L (3.4-5.1); Sodium 137 mmol/L (137-145); Total Protein 7.4 g/dL (6.3-8.2)
[2023-04-02 21:57] LABS: Microcytosis 1+; Polychromasia 1+; Schistocytes 1+
[2023-04-02 22:00] LABS: Anisocytosis 1+
--- NOTE | 2023-04-02 22:05 | ED.MALEGU ---
HPI - Male Genitourinary General Chief complaint: Urogenital-Male Stated complaint: urinary problems Time Seen by Provider: 04/02/23 19:41 Source: patient and family Mode of arrival: Ambulatory History of Present Illness HPI Narrative: 73yoM with PMH COPD on chronic O2, remote hx of prostate cancer with resultant radiation cystitis with hematuria presents by private vehicle form home for inability to urinate. Patient states that he has been urinating clots and feels these are blocking his ability to urinate. Has had to have cole palcement in past for same. Denies use of blood thinners. Related Data Home Medications Medication Instructions Recorded Confirmed bupropion HCl 200 mg tablet,12 hr 150 mg PO Q DAY ##0 12/20/11 04/03/23 sustained-release (Wellbutrin SR) atorvastatin 20 mg tablet 20 mg PO BEDTIME 04/09/22 04/03/23 glipizide 10 mg tablet, extended 10 mg PO DAILY 04/09/22 04/03/23 release 24 hr metformin 1,000 mg tablet 1,000 mg PO BID 05/15/22 04/03/23 multivitamin 1 tab PO DAILY 05/15/22 04/03/23 hydrochlorothiazide 12.5 mg tablet 12.5 mg PO DAILY 06/20/22 04/03/23 losartan 50 mg tablet 50 mg PO DAILY 06/20/22 04/03/23 Previous Rx's Medication Instructions Recorded finasteride 5 mg tablet 5 mg PO DAILY #30 tabs 04/14/22 Allergies Allergy/AdvReac Type Severity Reaction Status Date / Time lisinopril Allergy Unknown Verified 12/02/22 10:45 Sulfa (Sulfonamide Allergy Unknown Verified 12/02/22 10:45 Antibiotics) [SULFA (SULFONAMIDE ANTIBIOTICS)] Review of Systems Review of Systems Narrative: Negative except as noted above Patient History Medical History Cole catheter present History of hyperbaric oxygen therapy Essential hypertension History of brachytherapy History of prostate cancer Depression Non-STEMI (non-ST elevated myocardial infarction) (~11/2011) Type 2 diabetes mellitus COPD (chronic obstructive pulmonary disease) Obstructive sleep apnea of adult Social History household members: children Smoking Status: Former smoker Smoking Status: Former smoker alcohol intake frequency: holidays/special occasions only Substance Use Type: does not use Exam Initial Vital Signs Initial Vital Signs: Vital Signs Temperature 97.4 F L 04/02/23 18:44 Pulse Rate 75 04/02/23 18:44 Respiratory Rate 20 04/02/23 18:44 Blood Pressure 114/57 L 04/02/23 18:44 Pulse Oximetry 98 04/02/23 18:44 Oxygen Delivery Method Nasal Cannula 04/02/23 18:44 Oxygen Flow Rate 3 04/02/23 18:44 Const: Awake, alert, no acute distress, frail Cardiac: regular rate, regular rhythm RESP: unlabored, on supplemental nasal cannula, no wheezing GI: Atraumatic, soft, nontender MSK: Atraumatic, full range of motion, pulses equal Skin: Pale, Warm, Dry, intact, no rashes Neuro: AO x3, CN II-XII grossly intact, moves all extremities Psych: affect normal, mood normal, not suicidal, not homicidal Course Course Course Narrative: Patient presenting for hematuria and decreased ability to urinate. Has been seen by urology numerous times in past for same. Three-way Cole placed with continuous bladder irrigation, retrieval of clots. Orders Ordered: ED Orders 04/02/23 21:22 CBC Auto Diff [Complete Blood Count AUTO DIFF] Stat Comprehensive Metabolic Panel Stat 04/02/23 22:25 Type and Screen Stat transfuse [Packed Cells] Stat 04/02/23 22:55 Urine Culture Stat Urine Microscopic Stat Acetaminophen (Acetaminophen 325 Mg Tablet) 650 mg PO Q6H PRN PRN Reason: Fever/Mild Pain (1-3) Atorvastatin Calcium (Atorvastatin 20 Mg Tablet) 20 mg PO BEDTIME [facility] Bupropion HCl (Bupropion Sr 100 Mg Tab) 150 mg PO DAILY [facility] Last Admin: 04/03/23 03:42 Dose: Not Given Documented By: MS Finasteride (Finasteride 5 Mg Tablet) 5 mg PO DAILY [facility] Hydrochlorothiazide (Hydrochlorothiazide 25 Mg Tablet) 12.5 mg PO DAILY [facility] Losartan Potassium (Losartan 50 Mg Tablet) 50 mg PO DAILY [facility] Metformin HCl (Metformin Hcl 500 Mg Tablet) 1,000 mg PO BID [facility] Multivitamins (Multivitamin 1 Tablet) 1 tab PO DAILY [facility] Naloxone HCl (Naloxone 0.4 Mg/Ml Vial) 0.2 mg IV Q2MIN PRN PRN Reason: Opiate Reversal Glipizide 10 Mg Tablet Extended Release 24hr) 10 mg PO DAILY [facility] Discontinued Medications Furosemide (Furosemide 20 Mg/2 Ml Vial) 20 mg IV NOW ONE Stop: 04/03/23 01:21 Last Admin: 04/03/23 01:46 Dose: 20 mg Documented By: SR Lidocaine HCl (Lidocaine 2% (Glydo) 6 Ml Gel) 6 ml TOP NOW ONE Stop: 04/02/23 21:34 Last Admin: 04/02/23 22:50 Dose: 6 ml Documented By: GC Sodium Chloride (Sodium Chloride Irrig Solution 2,000 Ml) 2,000 ml IRR NOW ONE Stop: 04/03/23 03:42 Reevaluation(s) Reevaluation #1: Laboratory work is significant for hemoglobin of 6.0, patient's baseline hemoglobin appears to be about 10. Kidney function at baseline, electrolytes normal. Patient informed of his low hemoglobin, I recommended blood transfusion since he most likely still bleeding through his bladder. Patient initially reluctant to receive blood transfusion, however agree to 10 she is in after speaking to his daughter who is a nurse. Type and screen sent to lab and RBCs ordered for transfusion. Patient admitted for further treatment. Vital Signs Vital signs: Vital Signs - 8 hr 04/02/23 23:06 04/02/23 23:09 04/02/23 23:09 Pulse Rate 91 H 89 Respiratory Rate 16 Blood Pressure 127/66 Pulse Oximetry 99 100 MDM - Male Genitourinary Differential Diagnosis Differential diagnosis: Likely urinary tract infection, acute retention of urine and other (cystitis) Lab Data 04/02/23 21:22 04/02/23 21:22 Labs: Lab Results 04/02/23 04/02/23 04/02/23 Range/Units 21:22 22:25 22:55 WBC 8.2 (4.5-11.0) X10^3/uL RBC 2.04 L (4.5-5.9) X10^6/uL Hgb 6.0 L* (13.5-17.5) g/dL Hct 19.2 L* (41-53) % MCV 93.9 (80-100) fL MCH 29.4 (26-34) PG MCHC 31.3 (30-36) % RDW 17.7 H (11.6-14.8) % Plt Count 354 (150-400) X10^3/uL Neut % (Auto) 77.4 H (50-75) % Lymph % (Auto) 12.3 L (25-40) % [place] % (Auto) 7.6 (3-14) % Eos % (Auto) 2.0 (2-4) % Baso % (Auto) 0.7 (0-2) % Neut # (Auto) 6400 (5298-2497) /uL Lymph # (Auto) 1000 L (4693-3163) /uL [place] # (Auto) 600 (0-900) /uL Eos # (Auto) 200 (0-450) /uL Baso # (Auto) 100 (0-100) /uL RBC Morphology See below Polychromasia 1+ H Anisocytosis 1+ H Microcytosis 1+ H Schistocytes 1+ H Sodium 137 (137-145) mmol/L Potassium 4.9 (3.4-5.1) mmol/L Chloride 97 L (98-107) mmol/L Carbon Dioxide 34 H (22-32) mmol/L BUN 21 H (9-20) mg/dL Creatinine 0.85 (0.66-1.25) mg/dL Estimated GFR > 60 (>60) mL/min BUN/Creatinine Ratio 24.7 H (6-22) Glucose 150 H (80-110) mg/dL Calcium 9.0 (8.4-10.2) mg/dL Total Bilirubin 0.7 (0.2-1.3) mg/dL AST 44 (17-59) IU/L ALT 21 (<50) IU/L Alkaline Phosphatase 68 (38-126) U/L Total Protein 7.4 (6.3-8.2) g/dL Albumin 4.1 (3.5-5.0) g/dL Globulin 3.3 (1.7-4.1) g/dL Albumin/Globulin Ratio 1.2 (1.0-2.8) Urine RBC >100/hpf H (0-5/HPF) Urine WBC 1-5/hpf (0-5/HPF) Ur Squamous Epith Cells None seen (0-5/HPF) Urine Bacteria Few (2-10) H (None) Ur Culture Indicated? Specimen cultured Blood Type O Positive Antibody Screen Negative Crossmatch See Detail Critical Care Time Critical Care Time Critical Care Time: Yes Total Critical Care Time: 33 Attestation: Acute blood loss anemia requiring transfusion Discharge Plan Departure Patient Disposition: Admitted as Observation Clinical Impression: Anemia requiring transfusions, Irradiation cystitis with hematuria, Hematuria Admit Date/Time: 04/02/23 23:21 Admit Provider: Ginger Germain
[2023-04-02] MEDS: LIDOCAINE 2% (GLYDO) 6 ML GEL TOP (22:50)
[2023-04-02 23:37] LABS: Bacteria Urine Few (2-10); Culture Indicated Urine Specimen Cultured; RBC Urine >100/HPF (0-5/HPF); Squamous Epithelial Cell Urine None Seen (0-5/HPF); WBC Urine 1-5/HPF (0-5/HPF)
[2023-04-03] VITALS (27 sets, daily range): BP systolic 90–126; BP diastolic 49–73; PULSE 61–98; RESP 12–22; TEMP 35.7–37.4; O2SAT 93–100; BMI 35.2
--- NOTE | 2023-04-03 | PATH_ITS ---
[facility] Accession Number: [id number] No. of containers..01 Tissue . 01 Material submitted: . body - RIGHT POSTERIOR FLOOR AND WALL . 01 Diagnosis: Urinary Bladder, Right Posterior Floor and Wall, Transurethral Resection: Invasive urothelial carcinoma, poorly differented (Grade 3). - Carcinoma invades into muscularis propria. - Negative for lymphovascular invasion. - Papillary tumor configuration. MRV 04/15/2023 1022 Local . 01 Comment: The results of this case are verbally provided by Dr. Dominguez to Madhavi Carbajal RN on 04/15/2023 at 10:30 a.m. . 01 Electronically signed: . Neha Dominguez MD, Pathologist NPI- [id number] . 01 Gross description: . The specimen is received in formalin, labeled with the patient's name, , and right posterior floor and wall, and consists of multiple sandra soft tissue fragments admixed with hemorrhagic material weighing 13 g and aggregating to 4.4 x 3.6 x 1.6 cm. Filtered and submitted entirely in cassettes A1-A5. ([id number]) /FRR 04/04/2023 1519 Local . 01 Pathologist provided ICD-10: C67.9 . 01 CPT . 428174 Performed at: 01 [facility] [address] [place] [address], [place], [place] [id number] MD Seth Navarrete MD Phone: [phone]
--- NOTE | 2023-04-03 | DI.RAD.S_ITS ---
PROCEDURE: XR CHEST 1V INDICATIONS: intubated TECHNIQUE: One view of the chest was acquired. COMPARISON: [facility], CR, XR CHEST 1V, 07/14/2022, 12:13. [facility], CR, XR CHEST 1V, 06/12/2022, 14:42. FINDINGS: Surgical changes and devices: Gastric tube tip projects over the stomach. Endotracheal tube tip projects 2 cm above the [place]. Lungs and pleura: hazy bibasilar airspace opacities. Mediastinum: Mediastinal contours appear normal. Heart size is normal. Bones and chest wall: No suspicious bony lesions. Overlying soft tissues appear unremarkable. IMPRESSION: Endotracheal tube and gastric tube project over the appropriate positions. Low lung volumes with hazy bibasilar airspace opacities, probably atelectasis. Dictated by: Lion Orozco M.D. on 04/03/2023 at 17:39 Approved by: Lion Orozco M.D. on 04/03/2023 at 17:40
--- NOTE | 2023-04-03 01:23 | PM.HP.1 ---
History of Present Illness History of Present Illness Date Patient Seen: 04/03/23 Time Patient Seen: 01: Date of Onset of Symptoms: 04/02/23 Chief complaint: urinary problems Narrative: 73 year old with history of DM, COPD on oxygen, prostate cancer with brachytherapy, radiation cystitis x 9 months with persistent hematuria here with inability to urinate. He was told by his urologist to go to the ED when he found that he could not urinate. He has had a chronic cole but they removed 6-8 weeks ago. He has hematuria daily with clots but could not pass urine today. He has spoken to the radiation oncologist who is aware of his issues. He denies fever, vomiting, diarrhea, changes in his breathing (he is on nightly BiPAP for significant COPD with 2-3 liters of O2 daily). He has noted increased swelling of his lower extremities recently and was noted to have significant pitting edema. He did not think his weight was increasing. He denies chest pain. A three way catheter was placed in the ED to clear his clots and remove the retention. His Hgb was noted to be 6.0 so he received a unit of PRBC in the ED. He has not required transfusion in the past. [facility] Medical History Cole catheter present History of hyperbaric oxygen therapy Essential hypertension History of brachytherapy History of prostate cancer Depression Non-STEMI (non-ST elevated myocardial infarction) (~11/2011) Type 2 diabetes mellitus COPD (chronic obstructive pulmonary disease) Obstructive sleep apnea of adult Social History household members: children Smoking Status: Former smoker Meds Home Medications and Allergies Home Medications Medication Instructions Recorded Confirmed Type bupropion HCl 200 mg tablet,12 hr 150 mg PO Q DAY ##0 12/20/11 04/03/23 History sustained-release (Wellbutrin SR) atorvastatin 20 mg tablet 20 mg PO BEDTIME 04/09/22 04/03/23 History glipizide 10 mg tablet, extended 10 mg PO DAILY 04/09/22 04/03/23 History release 24 hr finasteride 5 mg tablet 5 mg PO DAILY #30 tabs 04/14/22 04/03/23 Rx metformin 1,000 mg tablet 1,000 mg PO BID 05/15/22 04/03/23 History multivitamin 1 tab PO DAILY 05/15/22 04/03/23 History hydrochlorothiazide 12.5 mg tablet 12.5 mg PO DAILY 06/20/22 04/03/23 History losartan 50 mg tablet 50 mg PO DAILY 06/20/22 04/03/23 History Allergies Allergy/AdvReac Type Severity Reaction Status Date / Time lisinopril Allergy Unknown Verified 12/02/22 10:45 Sulfa (Sulfonamide Allergy Unknown Verified 12/02/22 10:45 Antibiotics) [SULFA (SULFONAMIDE ANTIBIOTICS)] Review of Systems Constitutional Constitutional: Reports daytime sleepiness and Denies weight gain Comments: no fever Cardiovascular Cardiovascular: Denies chest pain, Reports edema and Denies dyspnea Respiratory Respiratory: Reports system reviewed and no additional complaints, except as documented, Denies change in phlegm color, Denies cough, Denies hemoptysis and Denies dyspnea Gastrointestinal Gastrointestinal: Reports system reviewed and no additional complaints, except as documented, Denies abdominal pain, Denies melena, Denies nausea and Denies vomiting Genitourinary Genitourinary: Reports system reviewed and no additional complaints, except as documented and Reports difficulty urinating Musculoskeletal Musculoskeletal: Reports system reviewed and no additional complaints, except as documented Neurologic Neurologic: Reports system reviewed and no additional complaints, except as documented and Denies localized weakness Hematologic/Lymphatic Hematologic/Lymphatic: Reports system reviewed and no additional complaints, except as documented Exam Vital Signs (past 8 hours): - 04/02/23 18:44 04/02/23 23:06 04/02/23 23:09 Temperature 97.4 F L Pulse Rate 75 91 H 89 Respiratory Rate 20 16 Blood Pressure 114/57 L Pulse Oximetry 98 99 100 Oxygen Delivery Method Nasal Cannula Oxygen Flow Rate 3 04/02/23 23:09 04/02/23 23:24 04/02/23 23:24 Temperature 98.1 F Pulse Rate 98 H Respiratory Rate 18 Blood Pressure 127/66 126/70 Pulse Oximetry 100 100 Oxygen Delivery Method BiPAP Oxygen Flow Rate 3 3 04/02/23 23:30 04/02/23 23:30 04/02/23 23:43 Temperature 97.6 F Pulse Rate 86 88 Respiratory Rate 15 20 Blood Pressure 110/59 L 118/57 L Pulse Oximetry 100 Oxygen Delivery Method Oxygen Flow Rate 04/02/23 23:44 04/02/23 23:44 04/02/23 23:55 Temperature 97.8 F Pulse Rate 85 74 Respiratory Rate 21 22 Blood Pressure 118/57 L 116/57 L Pulse Oximetry 100 Oxygen Delivery Method Oxygen Flow Rate 04/03/23 00:00 04/03/23 00:00 04/03/23 00:20 Temperature 98 F Pulse Rate 87 98 H Respiratory Rate 18 18 Blood Pressure 116/57 L 126/70 Pulse Oximetry 99 95 Oxygen Delivery Method Oxygen Flow Rate 5 04/03/23 01:08 Temperature Pulse Rate Respiratory Rate Blood Pressure Pulse Oximetry 100 Oxygen Delivery Method BiPAP Oxygen Flow Rate 3 Oxygen Delivery Method BiPAP Oxygen Flow Rate 3 Narrative Exam Narrative: Ginger Germain in [facility] has seen Robinson Pondcock in [place] using all aspects of audio and video telemedicine with nursing assistance Const General: cooperative, healthy appearing and comfortable Nutritional Appearance: average body habitus Orientation: alert, awake and oriented x3 Other: On BiPAP difficult to hear but normal voice HENMT Head: normal to inspection Eyes Alignment and Position: alignment normal Sclera: sclerae normal Pupils: PERRL Neck Neck: normal visual inspection and trachea midline Chest Chest: normal inspection of the chest Resp Effort & Inspection: normal respiratory effort Auscultation: clear to auscultation bilaterally and other (diminished in bases) Cardio Rate: regular rate Rhythm: regular rhythm Heart Sounds: S1 normal and S2 normal GI Inspection: normal to inspection Palpation: soft Auscultation: normal bowel sounds Skin Rashes: no rashes Neuro Cognition: normal cognition Speech: speech normal Motor: muscle tone normal throughout Extrem Right lower extremity: full ROM, normal capillary refill and edema Left lower extremity: full ROM, normal capillary refill and edema Psych Speech and Movement: speech and movement normal Mood: congruent mood Affect: normal affect Objective Labs 04/02/23 21:22 04/02/23 21:22 Labs: Laboratory Results - last 24 hr 04/02/23 04/02/23 04/02/23 21:22 22:25 22:55 WBC 8.2 RBC 2.04 L Hgb 6.0 L* Hct 19.2 L* MCV 93.9 MCH 29.4 MCHC 31.3 RDW 17.7 H Plt Count 354 Neut % (Auto) 77.4 H Lymph % (Auto) 12.3 L [place] % (Auto) 7.6 Eos % (Auto) 2.0 Baso % (Auto) 0.7 Neut # (Auto) 6400 Lymph # (Auto) 1000 L [place] # (Auto) 600 Eos # (Auto) 200 Baso # (Auto) 100 RBC Morphology See below Polychromasia 1+ H Anisocytosis 1+ H Microcytosis 1+ H Schistocytes 1+ H Sodium 137 Potassium 4.9 Chloride 97 L Carbon Dioxide 34 H BUN 21 H Creatinine 0.85 Estimated GFR > 60 BUN/Creatinine Ratio 24.7 H Glucose 150 H Calcium 9.0 Total Bilirubin 0.7 AST 44 ALT 21 Alkaline Phosphatase 68 Total Protein 7.4 Albumin 4.1 Globulin 3.3 Albumin/Globulin Ratio 1.2 Urine RBC >100/hpf H Urine WBC 1-5/hpf Ur Squamous Epith Cells None seen Urine Bacteria Few (2-10) H Ur Culture Indicated? 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 Qualified Code(s): E11.9 - Type 2 diabetes mellitus without complications; Z79.4 - FDC (current) use of insulin Status: Acute (4) COPD (chronic obstructive pulmonary disease): Qualifiers: COPD type: emphysema Emphysema type: centrilobular Qualified Code(s): J43.2 - Centrilobular emphysema Status: Chronic Plan Irradiation cystitis with hematuria, acute on chronic with urinary obstruction secondary to treatment for prostate cancer 3 way cole placed to clear clots Urology consult send urinalysis in am when urine more clear suspect he may need to go home with a cole again Acute anemia Transfused 1 unit PRBC repeat CBC in am MCV OK, would have suspected iron deficiency with hx chronic loss COPD, no acute exacerbation dependent on night time BiPAP and daytime O2 2-3 L patient states no additional symptoms did note peripheral edema, question cor pulmonale versus CHF he admitted that he has not started the HCTZ that his doctor recently recommended ordered IV lasix tonight will ordere ECHO to assess EF Hypertension patient starting Losartan and HCTZ but has not started yet, ordered Hyperlipidemia ordered statin Diabetes continue usual medications
[2023-04-03] MEDS: FUROSEMIDE 20 MG/2 ML VIAL IV ×2 (01:46→10:00)
[2023-04-03] MEDS: SODIUM CHLORIDE IRRIG SOLUTION 2,000 ML 2000 ML IRR (06:30)
[2023-04-03 06:39] LABS: Add Manual Diff / Slide Review NO; Basophils Absolute Auto 0 /uL (0-100); Basophils Percent Auto 0.3 % (0-2); Eosinophils Absolute Auto 200 /uL (0-450); Eosinophils Percent Auto 2.5 % (2-4); Lymphocytes Absolute Auto 1000 /uL (1100-4500); Lymphocytes Percent Auto 14.7 % (25-40); Mean Corpuscular HGB Conc 32.2 % (30-36); Mean Corpuscular Hemoglobin 29.7 PG (26-34); Monocytes Absolute Auto 600 /uL (0-900); Monocytes Percent Auto 8.9 % (3-14); Neutrophils Absolute Auto 4900 /uL (1500-7000); Neutrophils Percent Auto 73.6 % (50-75); Platelet Count 281 X10^3/uL (150-400); Red Blood Cell Count 2.24 X10^6/uL (4.5-5.9); Red Cell Distribution Width 16.5 % (11.6-14.8); White Blood Cell Count 6.7 X10^3/uL (4.5-11.0)
[2023-04-03 06:45] LABS: Hematocrit 20.6 % (41-53); Hemoglobin 6.6 g/dL (13.5-17.5)
[2023-04-03 07:18] LABS: TSH w/ Reflex to FT4 3.15 uIU/mL (0.47-4.68)
--- NOTE | 2023-04-03 07:33 | PM.HP.1 ---
History of Present Illness History of Present Illness Date Patient Seen: 04/03/23 Time Patient Seen: 01:23 Date of Onset of Symptoms: 04/02/23 Chief complaint: urinary problems Narrative: From overnight physician: 73 year old with history of DM, COPD on oxygen, prostate cancer with brachytherapy, radiation cystitis x 9 months with persistent hematuria here with inability to urinate. He was told by his urologist to go to the ED when he found that he could not urinate. He has had a chronic cole but they removed 6-8 weeks ago. He has hematuria daily with clots but could not pass urine today. He has spoken to the radiation oncologist who is aware of his issues. He denies fever, vomiting, diarrhea, changes in his breathing (he is on nightly BiPAP for significant COPD with 2-3 liters of O2 daily). He has noted increased swelling of his lower extremities recently and was noted to have significant pitting edema. He did not think his weight was increasing. He denies chest pain. A three way catheter was placed in the ED to clear his clots and remove the retention. His Hgb was noted to be 6.0 so he received a unit of PRBC in the ED. He has not required transfusion in the past. [facility] Medical History Cole catheter present History of hyperbaric oxygen therapy Essential hypertension History of brachytherapy History of prostate cancer Depression Non-STEMI (non-ST elevated myocardial infarction) (~11/2011) Type 2 diabetes mellitus COPD (chronic obstructive pulmonary disease) Obstructive sleep apnea of adult Social History household members: children Smoking Status: Former smoker Meds Home Medications and Allergies Home Medications Medication Instructions Recorded Confirmed Type bupropion HCl 200 mg tablet,12 hr 150 mg PO Q DAY ##0 12/20/11 04/03/23 History sustained-release (Wellbutrin SR) atorvastatin 20 mg tablet 20 mg PO BEDTIME 04/09/22 04/03/23 History glipizide 10 mg tablet, extended 10 mg PO DAILY 04/09/22 04/03/23 History release 24 hr finasteride 5 mg tablet 5 mg PO DAILY #30 tabs 04/14/22 04/03/23 Rx metformin 1,000 mg tablet 1,000 mg PO BID 05/15/22 04/03/23 History multivitamin 1 tab PO DAILY 05/15/22 04/03/23 History hydrochlorothiazide 12.5 mg tablet 12.5 mg PO DAILY 06/20/22 04/03/23 History losartan 50 mg tablet 50 mg PO DAILY 06/20/22 04/03/23 History Allergies Allergy/AdvReac Type Severity Reaction Status Date / Time lisinopril Allergy Unknown Verified 12/02/22 10:45 Sulfa (Sulfonamide Allergy Unknown Verified 12/02/22 10:45 Antibiotics) [SULFA (SULFONAMIDE ANTIBIOTICS)] Review of Systems Constitutional Constitutional: Reports daytime sleepiness and Denies weight gain Comments: no fever Cardiovascular Cardiovascular: Denies chest pain, Reports edema and Denies dyspnea Respiratory Respiratory: Reports system reviewed and no additional complaints, except as documented, Denies change in phlegm color, Denies cough, Denies hemoptysis and Denies dyspnea Gastrointestinal Gastrointestinal: Reports system reviewed and no additional complaints, except as documented, Denies abdominal pain, Denies melena, Denies nausea and Denies vomiting Genitourinary Genitourinary: Reports system reviewed and no additional complaints, except as documented and Reports difficulty urinating Musculoskeletal Musculoskeletal: Reports system reviewed and no additional complaints, except as documented Neurologic Neurologic: Reports system reviewed and no additional complaints, except as documented and Denies localized weakness Hematologic/Lymphatic Hematologic/Lymphatic: Reports system reviewed and no additional complaints, except as documented Exam Vital Signs (past 8 hours): - 04/02/23 23:43 04/02/23 23:44 04/02/23 23:44 Temperature 97.6 F Pulse Rate 88 85 Respiratory Rate 20 21 Blood Pressure 118/57 L 118/57 L Pulse Oximetry 100 Oxygen Delivery Method Oxygen Flow Rate 04/02/23 23:55 04/03/23 00:00 04/03/23 00:00 Temperature 97.8 F Pulse Rate 74 87 Respiratory Rate 22 18 Blood Pressure 116/57 L 116/57 L Pulse Oximetry 99 Oxygen Delivery Method Oxygen Flow Rate 04/03/23 00:20 04/03/23 01:08 04/03/23 03:10 Temperature 98 F 96.8 F L Pulse Rate 98 H 75 Respiratory Rate 18 17 Blood Pressure 126/70 109/55 L Pulse Oximetry 95 100 Oxygen Delivery Method BiPAP Oxygen Flow Rate 5 3 04/03/23 04:00 Temperature 96.8 F L Pulse Rate 75 Respiratory Rate 17 Blood Pressure 109/55 L Pulse Oximetry 100 Oxygen Delivery Method Oxygen Flow Rate 3 Oxygen Delivery Method BiPAP Oxygen Flow Rate 3 Narrative Exam Narrative: Ginger Germain in [facility] has seen Robinson Perez in [place] using all aspects of audio and video telemedicine with nursing assistance Const General: cooperative, healthy appearing and comfortable Nutritional Appearance: average body habitus Orientation: alert, awake and oriented x3 Other: On BiPAP difficult to hear but normal voice HENMT Head: normal to inspection Eyes Alignment and Position: alignment normal Sclera: sclerae normal Pupils: PERRL Neck Neck: normal visual inspection and trachea midline Chest Chest: normal inspection of the chest Resp Effort & Inspection: normal respiratory effort Auscultation: clear to auscultation bilaterally and other (diminished in bases) Cardio Rate: regular rate Rhythm: regular rhythm Heart Sounds: S1 normal and S2 normal GI Inspection: normal to inspection Palpation: soft Auscultation: normal bowel sounds Skin Rashes: no rashes Neuro Cognition: normal cognition Speech: speech normal Motor: muscle tone normal throughout Extrem Right lower extremity: full ROM, normal capillary refill and edema Left lower extremity: full ROM, normal capillary refill and edema Psych Speech and Movement: speech and movement normal Mood: congruent mood Affect: normal affect Objective Labs 04/03/23 14:59 04/03/23 07:24 Labs: Laboratory Results - last 24 hr 04/02/23 04/02/23 04/02/23 21:22 22:25 22:55 WBC 8.2 RBC 2.04 L Hgb 6.0 L* Hct 19.2 L* MCV 93.9 MCH 29.4 MCHC 31.3 RDW 17.7 H Plt Count 354 Neut % (Auto) 77.4 H Lymph % (Auto) 12.3 L [place] % (Auto) 7.6 Eos % (Auto) 2.0 Baso % (Auto) 0.7 Neut # (Auto) 6400 Lymph # (Auto) 1000 L [place] # (Auto) 600 Eos # (Auto) 200 Baso # (Auto) 100 RBC Morphology See below Polychromasia 1+ H Anisocytosis 1+ H Microcytosis 1+ H Schistocytes 1+ H Sodium 137 Potassium 4.9 Chloride 97 L Carbon Dioxide 34 H BUN 21 H Creatinine 0.85 Estimated GFR > 60 BUN/Creatinine Ratio 24.7 H Glucose 150 H Calcium 9.0 Total Bilirubin 0.7 AST 44 ALT 21 Alkaline Phosphatase 68 Total Protein 7.4 Albumin 4.1 Globulin 3.3 Albumin/Globulin Ratio 1.2 TSH Urine RBC >100/hpf H Urine WBC 1-5/hpf Ur Squamous Epith Cells None seen Urine Bacteria Few (2-10) H Ur Culture Indicated? Specimen cultured Blood Type O Positive Antibody Screen Negative Crossmatch See Detail 04/03/23 05:25 WBC 6.7 RBC 2.24 L Hgb 6.6 L* Hct 20.6 L* MCV 92.0 MCH 29.7 MCHC 32.2 RDW 16.5 H Plt Count 281 Neut % (Auto) 73.6 Lymph % (Auto) 14.7 L [place] % (Auto) 8.9 Eos % (Auto) 2.5 Baso % (Auto) 0.3 Neut # (Auto) 4900 Lymph # (Auto) 1000 L [place] # (Auto) 600 Eos # (Auto) 200 Baso # (Auto) 0 RBC Morphology Polychromasia Anisocytosis Microcytosis Schistocytes Sodium Potassium Chloride Carbon Dioxide BUN Creatinine Estimated GFR BUN/Creatinine Ratio Glucose Calcium Total Bilirubin AST ALT Alkaline Phosphatase Total Protein Albumin Globulin Albumin/Globulin Ratio TSH 3.15 Urine RBC Urine WBC Ur Squamous Epith Cells Urine Bacteria Ur Culture Indicated? Blood Type Antibody Screen Crossmatch Assessment & Plan Assessment & Plan narrative: # Irradiation cystitis with hematuria, acute on chronic with urinary obstruction secondary to treatment for prostate cancer 3 way cole placed to clear clots, continuous irrigation Urology consulted, taking for cystoscopy 04/03 CT KUB w contrast shows clots in bladder # Acute anemia Transfused 1 unit PRBC repeat Hgb 6.6, another unit ordered MCV [place], would have suspected iron deficiency with hx chronic loss goal >7 Hgb, continue q6h checks # COPD, no acute exacerbation dependent on night time BiPAP and daytime O2 2-3 L patient states no additional symptoms did note peripheral edema, question cor pulmonale versus CHF, although BNP is only 67 and last echo with EF 65-70% in June 2022 he admitted that he has not started the HCTZ that his doctor recently recommended ordered IV lasix, will order ECHO to assess EF # Hypertension patient starting Losartan and HCTZ but has not started yet, ordered # Hyperlipidemia ordered statin # Diabetes continue usual medications Dispo: Pending urology cystoscopy on 04/03 then echo findings.
[2023-04-03 07:48] LABS: Alanine Aminotransferase 19 IU/L (<50); Albumin 3.5 g/dL (3.5-5.0); Albumin Globulin Ratio 1.2 (1.0-2.8); Alkaline Phosphatase 61 U/L (38-126); Aspartate Aminotransferase 29 IU/L (17-59); BUN Creatinine Ratio 21.8 (6-22); Bilirubin Total 0.8 mg/dL (0.2-1.3); Blood Urea Nitrogen 19 mg/dL (9-20); Calcium 8.6 mg/dL (8.4-10.2); Carbon Dioxide 38 mmol/L (22-32); Chloride 99 mmol/L (98-107); Estimated Glomerular Filt Rate > 60 mL/min (>60); Globulin 2.9 g/dL (1.7-4.1); Glucose 131 mg/dL (80-110); HEMOLYSIS < 15 (0-50); Potassium 4.4 mmol/L (3.4-5.1); Sodium 139 mmol/L (137-145); Total Protein 6.4 g/dL (6.3-8.2)
--- NOTE | 2023-04-03 07:56 | DI.CT.S_ITS ---
PROCEDURE: CT ABDOMEN PELVIS W CON INDICATIONS: hemorrhagic cystitis TECHNIQUE: After the administration of intravenous contrast, axial sections acquired from the lung bases to the pubic symphysis. Coronal and sagittal reformats were performed. For radiation dose reduction, the following was used: automated exposure control, adjustment of mA and/or kV according to patient size. COMPARISON: [facility], CT, CT ABDOMEN PELVIS WO/W CON, 04/09/2022, 13:38. FINDINGS: Image quality: Excellent. Lung bases: Atelectasis is present at the right lung base. Heart: No significant findings. ABDOMEN: Liver: Unremarkable. Gallbladder: Surgically absent. Biliary ducts: Unremarkable. Pancreas: Unremarkable. Spleen: Unremarkable. A small splenule is present at the hilum. Adrenal Glands: Unremarkable. Kidneys and Ureters: Unremarkable. Stomach and Bowel: Stomach, small bowel loops, and colon are unremarkable. There are scattered sigmoid diverticula. No evidence for diverticulitis. The appendix is thin walled and gas filled. Peritoneum: No abnormal intraperitoneal fluid. No free air. Ventral Wall: No hernias. Abdominal Nodes: No retroperitoneal or mesenteric adenopathy by size criteria. Vessels: Aorta and inferior vena cava are normal in size. There are scattered atheromatous calcifications throughout the aorta and iliac arteries bilaterally. PELVIS: Pelvic Organs: Unremarkable. Bladder: A Franklin catheter is present. The bladder is distended with fluid and is thin walled. Gas is present likely secondary to catheterization. Intermediate density soft tissue is noted within the bladder suggesting the presence of thrombus. Pelvic Nodes: No enlarged lymph nodes. Miscellaneous: There are moderate-sized bilateral fat containing inguinal hernias. Bones: Unremarkable. IMPRESSION: 1. Fluid-filled bladder despite catheterization suggesting catheter malfunction. 2. Layering soft tissue within the dependent bladder suggesting the presence of thrombus. 3. No acute intra-abdominal findings. Normal appendix. Diverticulosis. No acute diverticulitis. Dictated by: So Chun M.D. on 04/03/2023 at 11:12 Approved by: So Chun M.D. on 04/03/2023 at 11:16
[2023-04-03 08:13] LABS: Magnesium 2.1 mg/dL (1.6-2.3)
[2023-04-03] MEDS: TRANEXAMIC ACID 1,000 MG in SODIUM CHLORIDE 0.9% 100 ML 200 MG IV (08:39)
[2023-04-03 08:45] LABS: Creatinine Urine Random 103.3 mg/dL
[2023-04-03 09:35] LABS: Protein (Total) Urine Random 2753 mg/dL (0-12); Protein Creatinine Ratio Urine 26.65 GRAM/24H
[2023-04-03] MEDS: MULTIVITAMIN 1 TABLET 1 TAB PO (10:00)
[2023-04-03] MEDS: FINASTERIDE 5 MG TABLET PO (10:00)
[2023-04-03] MEDS: buPROPion SR 100 MG TAB 150 MG PO (10:00)
--- NOTE | 2023-04-03 12:55 | P.CONS_ITS ---
History of Present Illness Consult details Date Patient Seen: 04/03/23 Time Patient Seen: 12:55 Chief complaint: urinary problems Reason for consult: Gross hematuria Requesting provider: Ginger Germain Narrative: The patient is a 73-year-old male admitted in the early evening hours for management of symptomatic anemia and a history of recurring gross hematuria. The patient has a remote history of having undergone brachytherapy. He presented to the [facility] ED on 04/09/2022 and then again on 04/10/2022 for evaluation and management of the same problem. At that time a Franklin catheter had been placed. He was then seen in the Urology Clinic by Dr. Luigi Soares after initial consultation at [facility] ED. lower tract endoscopy in the clinic 04/24/2022 demonstrated adherent clot within the prostate fossa and mucosal blanching with superficial varices in the vicinity of the bladder neck and anterior bladder wall consistent with radiation cystitis/prostatitis. The patient was subsequently referred for HBO, which he completed treatment course. 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 He also has a history of coronary artery disease, but reassuringly an echocardiogram done in September of this year showed good ventricular function. At current presentation hematocrit was 19.2. The patient has received 2 units packed RBCs in the interval. Contrast CT of abdomen and pelvis, performed at my request after lengthy discussion with Dr. Rodrigue Judge, demonstrates essentially normal kidneys and upper tracts bilaterally. The bladder has evidence of retained clot as well as urine indicating obstruction of catheter patency/catheter dysfunction. Meds Home Medications and Allergies Home Medications Medication Instructions Recorded Confirmed Type bupropion HCl 200 mg tablet,12 hr 150 mg PO Q DAY ##0 12/20/11 04/03/23 History sustained-release (Wellbutrin SR) atorvastatin 20 mg tablet 20 mg PO BEDTIME 04/09/22 04/03/23 History glipizide 10 mg tablet, extended 10 mg PO DAILY 04/09/22 04/03/23 History release 24 hr finasteride 5 mg tablet 5 mg PO DAILY #30 tabs 04/14/22 04/03/23 Rx metformin 1,000 mg tablet 1,000 mg PO BID 05/15/22 04/03/23 History multivitamin 1 tab PO DAILY 05/15/22 04/03/23 History hydrochlorothiazide 12.5 mg tablet 12.5 mg PO DAILY 06/20/22 04/03/23 History losartan 50 mg tablet 50 mg PO DAILY 06/20/22 04/03/23 History Allergies Allergy/AdvReac Type Severity Reaction Status Date / Time lisinopril Allergy Unknown Verified 12/02/22 10:45 Sulfa (Sulfonamide Allergy Unknown Verified 12/02/22 10:45 Antibiotics) [SULFA (SULFONAMIDE ANTIBIOTICS)] Review of Systems Review of Systems ROS: Yes All systems reviewed with the patient and are negative except as otherwise documented Exam Vital Signs (past 8 hours): - 04/03/23 07:00 04/03/23 07:30 04/03/23 07:37 Temperature 96.8 F L 96.8 F L Pulse Rate 76 75 Respiratory Rate 17 17 Blood Pressure 110/63 110/63 Pulse Oximetry 100 Oxygen Delivery Method Nasal Cannula BiPAP Oxygen Flow Rate 3 04/03/23 07:40 04/03/23 07:55 04/03/23 10:15 Temperature 96.8 F L 96.8 F L 98.4 F Pulse Rate 75 75 73 Respiratory Rate 17 17 18 Blood Pressure 110/63 116/73 115/57 L Pulse Oximetry 100 Oxygen Delivery Method Oxygen Flow Rate 3 Oxygen Delivery Method Nasal Cannula,BiPAP Oxygen Flow Rate 3 Narrative Exam Narrative: Resting comfortably in no distress Chest-equal and expansion Normal rate Objective Labs 04/03/23 05:25 04/03/23 07:24 Labs: Laboratory Results - last 24 hr 04/02/23 04/02/23 04/02/23 21:22 22:25 22:55 WBC 8.2 RBC 2.04 L Hgb 6.0 L* Hct 19.2 L* MCV 93.9 MCH 29.4 MCHC 31.3 RDW 17.7 H Plt Count 354 Neut % (Auto) 77.4 H Lymph % (Auto) 12.3 L [place] % (Auto) 7.6 Eos % (Auto) 2.0 Baso % (Auto) 0.7 Neut # (Auto) 6400 Lymph # (Auto) 1000 L [place] # (Auto) 600 Eos # (Auto) 200 Baso # (Auto) 100 RBC Morphology See below Polychromasia 1+ H Anisocytosis 1+ H Microcytosis 1+ H Schistocytes 1+ H Sodium 137 Potassium 4.9 Chloride 97 L Carbon Dioxide 34 H BUN 21 H Creatinine 0.85 Estimated GFR > 60 BUN/Creatinine Ratio 24.7 H Glucose 150 H Calcium 9.0 Magnesium Total Bilirubin 0.7 AST 44 ALT 21 Alkaline Phosphatase 68 Total Protein 7.4 Albumin 4.1 Globulin 3.3 Albumin/Globulin Ratio 1.2 TSH Urine RBC >100/hpf H Urine WBC 1-5/hpf Ur Squamous Epith Cells None seen Urine Bacteria Few (2-10) H Ur Culture Indicated? Specimen cultured U Random Total Protein Urine Creatinine Protein/Creatinin Ratio Blood Type O Positive Antibody Screen Negative Crossmatch See Detail 04/03/23 04/03/23 04/03/23 05:25 07:24 07:42 WBC 6.7 RBC 2.24 L Hgb 6.6 L* Hct 20.6 L* MCV 92.0 MCH 29.7 MCHC 32.2 RDW 16.5 H Plt Count 281 Neut % (Auto) 73.6 Lymph % (Auto) 14.7 L [place] % (Auto) 8.9 Eos % (Auto) 2.5 Baso % (Auto) 0.3 Neut # (Auto) 4900 Lymph # (Auto) 1000 L [place] # (Auto) 600 Eos # (Auto) 200 Baso # (Auto) 0 RBC Morphology Polychromasia Anisocytosis Microcytosis Schistocytes Sodium 139 Potassium 4.4 Chloride 99 Carbon Dioxide 38 H BUN 19 Creatinine 0.87 Estimated GFR > 60 BUN/Creatinine Ratio 21.8 Glucose 131 H Calcium 8.6 Magnesium 2.1 Total Bilirubin 0.8 AST 29 ALT 19 Alkaline Phosphatase 61 Total Protein 6.4 Albumin 3.5 Globulin 2.9 Albumin/Globulin Ratio 1.2 TSH 3.15 Urine RBC Urine WBC Ur Squamous Epith Cells Urine Bacteria Ur Culture Indicated? U Random Total Protein Urine Creatinine Protein/Creatinin Ratio Blood Type Antibody Screen Crossmatch 04/03/23 08:14 WBC RBC Hgb Hct MCV MCH MCHC RDW Plt Count Neut % (Auto) Lymph % (Auto) [place] % (Auto) Eos % (Auto) Baso % (Auto) Neut # (Auto) Lymph # (Auto) [place] # (Auto) Eos # (Auto) Baso # (Auto) RBC Morphology Polychromasia Anisocytosis Microcytosis Schistocytes Sodium Potassium Chloride Carbon Dioxide BUN Creatinine Estimated GFR BUN/Creatinine Ratio Glucose Calcium Magnesium Total Bilirubin AST ALT Alkaline Phosphatase Total Protein Albumin Globulin Albumin/Globulin Ratio TSH Urine RBC Urine WBC Ur Squamous Epith Cells Urine Bacteria Ur Culture Indicated? U Random Total Protein 2753 H Urine Creatinine 103.3 Protein/Creatinin Ratio 26.65 Blood Type Antibody Screen Crossmatch [facility] Medical History Franklin catheter present History of hyperbaric oxygen therapy Essential hypertension History of brachytherapy History of prostate cancer Depression Non-STEMI (non-ST elevated myocardial infarction) (~11/2011) Type 2 diabetes mellitus COPD (chronic obstructive pulmonary disease) Obstructive sleep apnea of adult Social History household members: children Tobacco & Substance Use Smoking Status: Former smoker Assessment & Plan Assessment & Plan narrative: Assessment: 1. Gross hematuria with clot retention. 2. History of radiation cystitis. 3. History hyperbaric oxygen therapy for radiation cystitis related gross hematuria. Plan: 1. The patient may benefit from clot evacuation/fulguration if not successful manually. 2. Consider wound care center evaluation for possible repeat HBO. 3. TXO 1 g IV now. 4. Patient may require cysto prostatectomy at regional referral center if ongoing or recurrent hemorrhage not controlled with the above measures.
[2023-04-03 12:57] LABS: NT-proBNP (BNP-Adult 18+) 67 pg/mL (<125)
--- NOTE | 2023-04-03 14:52 | PC.NURSE ---
Patient is taken via bed to PREOP area. PER PRE OP RN CBC recheck to be drawn in pre-op area.
[2023-04-03] MEDS: LACTATED RINGERS 1,000 ML 21 ML IV ×2 (15:00→16:14)
[2023-04-03 15:07] LABS: Hemoglobin 7.5 g/dL (13.5-17.5)
[2023-04-03] MEDS: CEFAZOLIN 2 GM/100 ML PREMIX 100 ML IV (15:13)
--- NOTE | 2023-04-03 15:18 | SUR.HOLD ---
H&H drawn in pre-op holding area.
[2023-04-03] MEDS: ACETAMINOPHEN IV 1,000 MG/100 ML VIAL 400 MG IV (15:45)
--- NOTE | 2023-04-03 15:46 | SUR.OPER ---
Lithotomy on padded OR bed, head on pillow, arms secured on padded arm boards at <90 degrees abduction. Legs secured in padded yellow fins stirrups.
--- NOTE | 2023-04-03 16:58 | PM.OP.1 ---
Operative Date/Time/Diagnoses Date of procedure: 04/03/23 Time of procedure: 16:30 Pre-op diagnosis: 1. Gross hematuria. 2. Clot retention. 3. History of presumed localized carcinoma the prostate status post brachytherapy. 4. History of hyperbaric oxygen chamber treatment for diagnosis of radiation cystitis. Post-op diagnosis: other (5. 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 ) Procedure & Clinicians Procedure: 1. Cystoscopy/clot evacuation. 2. Cystoscopy/Transurethral resection of large bladder neoplasm (greater than 5 cm). Same procedure as scheduled: No (Evidence of large bladder neoplasm after clot evacuation.) Indications: 1. Gross hematuria. 2. Clot retention. 3. Large bladder neoplasm Surgeon: Anai Oliver Click Yes if Unassisted: Yes Anesthesia Type: General Operative Notes Findings: 1. Urethra-normal caliber without annular stricture or lesion. 2. External sphincter- slightly gaping and mild mucosal excoriation/erosions secondary to foreign body. 3. Prostate-3.5 cm length with mild lateral lobe hyperplasia and minimal median lobe. No active bleeding or evidence of mucosal varices. 4. Bladder-1+ trabeculation. Both ureteral orifices were visualized. Intraoperative photographs were obtained. There is a large mixed papillary and solid neoplasm occupying the right posterior floor and lateral wall and posterior to the ureteric ridge. The neoplasm was not reliably resected in its entirety. It appeared to me as though solid components were within the deeper muscularis. Approximately 400 cc of maroon clot was irrigated from the bladder lumen with the SolvAxis evacuator. Closure Type: not applicable Specimen(s): other (Resected bladder neoplasm.) Applied: catheter (Twenty-[address] hematuria catheter.) Estimated Blood Loss (mL): 5 Blood products transfused: none Complications: none Post-operative Condition: stable Disposition: Acute Care Plan for aftercare: 1. Leave Franklin catheter indwelling to gravity drainage now and at discharge. 2. Follow-up pathology when final. Patient will require return to OR for deep cold cup biopsies of resection base if pathology does not confirm muscularis invasion. 3. Schedule follow-up with the patient's primary urologist, Dr. Luigi Soares in 10-12 days for Franklin catheter removal and voiding trial. 4. Familiar with catheter care and use. Provide patient with large bag and leg bag with catheter secures at discharge.
--- NOTE | 2023-04-03 17:54 | CM.DANOTE ---
Brief DCP Assessment Patient is a 73yo M here for hematuria acute on chronic with urinary obstruction and acute anemia with PMH of COPD and hypertension and bladder cancer PCP Sean Urbano Payer Medicare and [employer]. PHOTOGRAPHIC ARTIST reviewed EMR. Per provider in rounds, surgery today to fix bleeding. Pt received 2units of blood. PHOTOGRAPHIC ARTIST unable to meet with patient today due to triaging needs. Per chart, appears to live with dtr Zonia. Pt was moved to ICU at EOD. Plan: pending comprehensive dcp assessment. CM team will continue to follow closely. Likely home with dtr Zonia support when medically stable. KENTRELL Mejias Discharge Planning/Care Management Advanced directive, confirm from FAMILY Start: 04/03/23 01:18 Freq: Q24H Status: Active Protocol: Document 04/03/23 01:18 MS (Rec: 04/03/23 01:54 MS [id number]) Advance Directive, confirm on record Time 01:53 Person contacted Pt Copy received No CM Discharge Assessment Start: 04/03/23 17:52 Freq: Status: Active Protocol: Document 04/03/23 17:52 (Rec: 04/03/23 17:54 [id number]) Discharge Planning Assessment Assigned Pointing Machine Operator KENTRELL Anne Advance Directives? Yes Advance Directives on File No History Provided By Medical Record Prior Living Arrangements Apartment/Condo Household Members children Willing to Return to Facility? Yes Discharge Plan Home Whiteboard Updated in Patient Room with No name and ext. # of Pointing Machine Operator Review Status In Process Next Review Type Continued Stay Review
--- NOTE | 2023-04-03 18:01 | PM.EVENT ---
Event Note Date Patient Seen: 04/03/23 Time Patient Seen: 18:03 Event Note (Rapid Response, Code, or fall): Patient went for cystoscopy and large bladder tumor was found and resected. When in PACU he was unable to be exatubated due to hypercapnea and was pulling very low tidal volumes. He was kept intubated and transferred to the ICU. Dr. Wilkins tele-ICU alerted and orders were placed for vent and drips.
[2023-04-03] MEDS: propofoL 1,000 MG/100 ML VIAL 2.973 MG IV (18:15)
--- NOTE | 2023-04-03 18:30 | PM.CN.EICU ---
History of Present Illness Consult details IF CAMERA ACTIVATED, patient seen via real-time interactive audiovisual communication: Camera activated Chief complaint: urinary problems Consent obtained for tele-sales communications manager care: Yes Patient Location: ICU Provider location (State): Other participants/roles: , RN Narrative: 73-year-old male with history of DM II, HTN, Obesity, OHS, oxygen dependent COPD 2-3 L? & night time BiPAP, admitted for chronic gross hematuria and symptomatic anemia, received 2 units packed , s/p cystoscopy/clot evacuation & transurethral resection of large bladder neoplasm (> 5 cm), pt post op transferred to ICU as he couldn?t get extubated after surgery as he was hypo ventilating ( low tidal volumes & resp rate causing hypercapnic resp failure), ?pt is awake , follow simple commands, moving all extremities. Assessment: Acute on chronic hypoxic and hypercapnic resp failure could be 2/2 medication / pos t op in the sitting of morbid obesity, OHS & COPD/ chronic resp failure Acute on chronic symptomatic blood loss anemia New diagnosis of Large bladder neoplasm Plan: Vent sitting adjusted to 20/500/5/35 %, sat goal 92% Precedex for analgesia and sedation Pending CXR and ABG Pending post op CBC & BMP ISS for BS goal < 180 GI & mechanical VTE ppx CCT 45 min, D/W MD & RN at bedside [facility] Medical History Franklin catheter present History of hyperbaric oxygen therapy Essential hypertension History of brachytherapy History of prostate cancer Depression Non-STEMI (non-ST elevated myocardial infarction) (~11/2011) Type 2 diabetes mellitus COPD (chronic obstructive pulmonary disease) Obstructive sleep apnea of adult Social History household members: children Smoking Status: Former smoker Current Medications Current Medications Medications: Home Medications bupropion HCl 200 mg tablet,12 hr sustained-release (Wellbutrin SR) 150 mg PO Q DAY ##0 12/20/11 [History Confirmed 04/03/23] atorvastatin 20 mg tablet 20 mg PO BEDTIME 04/09/22 [History Confirmed 04/03/23] glipizide 10 mg tablet, extended release 24 hr 10 mg PO DAILY 04/09/22 [History Confirmed 04/03/23] finasteride 5 mg tablet 5 mg PO DAILY #30 tabs 04/14/22 [Rx Confirmed 04/03/23] metformin 1,000 mg tablet 1,000 mg PO BID 05/15/22 [History Confirmed 04/03/23] multivitamin 1 tab PO DAILY 05/15/22 [History Confirmed 04/03/23] hydrochlorothiazide 12.5 mg tablet 12.5 mg PO DAILY 06/20/22 [History Confirmed 04/03/23] losartan 50 mg tablet 50 mg PO DAILY 06/20/22 [History Confirmed 04/03/23] Visit Medications (administered) Generic Name Dose Route Start Last Admin Trade Name Juliusq PRN Reason Stop Dose Admin Propofol 1,000 mg in 100 mls @ 2.973 mls/hr 04/03/23 18:00 04/03/23 18:15 Propofol IV 5 mcg/kg/min TITRATE FELTON 2.973 mls/hr Administration Protocol 5 MCG/KG/MIN Exam Vital Signs (past 8 hours): - 04/03/23 15:11 Temperature 99.4 F Pulse Rate 73 Respiratory Rate 16 Blood Pressure 118/71 Pulse Oximetry 93 Oxygen Delivery Method Nasal Cannula Oxygen Flow Rate 3 Oxygen Delivery Method Nasal Cannula Oxygen Flow Rate 3 Objective Labs 04/03/23 14:59 04/03/23 07:24 Labs: Laboratory Results - last 24 hr 04/02/23 04/02/23 04/02/23 21:22 22:25 22:55 WBC 8.2 RBC 2.04 L Hgb 6.0 L* Hct 19.2 L* MCV 93.9 MCH 29.4 MCHC 31.3 RDW 17.7 H Plt Count 354 Neut % (Auto) 77.4 H Lymph % (Auto) 12.3 L [place] % (Auto) 7.6 Eos % (Auto) 2.0 Baso % (Auto) 0.7 Neut # (Auto) 6400 Lymph # (Auto) 1000 L [place] # (Auto) 600 Eos # (Auto) 200 Baso # (Auto) 100 RBC Morphology See below Polychromasia 1+ H Anisocytosis 1+ H Microcytosis 1+ H Schistocytes 1+ H Sodium 137 Potassium 4.9 Chloride 97 L Carbon Dioxide 34 H BUN 21 H Creatinine 0.85 Estimated GFR > 60 BUN/Creatinine Ratio 24.7 H Glucose 150 H Calcium 9.0 Magnesium Total Bilirubin 0.7 AST 44 ALT 21 Alkaline Phosphatase 68 NT-Pro-B Natriuret Pep Total Protein 7.4 Albumin 4.1 Globulin 3.3 Albumin/Globulin Ratio 1.2 TSH Urine RBC >100/hpf H Urine WBC 1-5/hpf Ur Squamous Epith Cells None seen Urine Bacteria Few (2-10) H Ur Culture Indicated? Specimen cultured U Random Total Protein Urine Creatinine Protein/Creatinin Ratio Blood Type O Positive Antibody Screen Negative Crossmatch See Detail 04/03/23 04/03/23 04/03/23 05:25 07:24 07:42 WBC 6.7 RBC 2.24 L Hgb 6.6 L* Hct 20.6 L* MCV 92.0 MCH 29.7 MCHC 32.2 RDW 16.5 H Plt Count 281 Neut % (Auto) 73.6 Lymph % (Auto) 14.7 L [place] % (Auto) 8.9 Eos % (Auto) 2.5 Baso % (Auto) 0.3 Neut # (Auto) 4900 Lymph # (Auto) 1000 L [place] # (Auto) 600 Eos # (Auto) 200 Baso # (Auto) 0 RBC Morphology Polychromasia Anisocytosis Microcytosis Schistocytes Sodium 139 Potassium 4.4 Chloride 99 Carbon Dioxide 38 H BUN 19 Creatinine 0.87 Estimated GFR > 60 BUN/Creatinine Ratio 21.8 Glucose 131 H Calcium 8.6 Magnesium 2.1 Total Bilirubin 0.8 AST 29 ALT 19 Alkaline Phosphatase 61 NT-Pro-B Natriuret Pep Total Protein 6.4 Albumin 3.5 Globulin 2.9 Albumin/Globulin Ratio 1.2 TSH 3.15 Urine RBC Urine WBC Ur Squamous Epith Cells Urine Bacteria Ur Culture Indicated? U Random Total Protein Urine Creatinine Protein/Creatinin Ratio Blood Type Antibody Screen Crossmatch 04/03/23 04/03/23 04/03/23 08:14 12:17 14:59 WBC RBC Hgb 7.5 L Hct MCV MCH MCHC RDW Plt Count Neut % (Auto) Lymph % (Auto) [place] % (Auto) Eos % (Auto) Baso % (Auto) Neut # (Auto) Lymph # (Auto) [place] # (Auto) Eos # (Auto) Baso # (Auto) RBC Morphology Polychromasia Anisocytosis Microcytosis Schistocytes Sodium Potassium Chloride Carbon Dioxide BUN Creatinine Estimated GFR BUN/Creatinine Ratio Glucose Calcium Magnesium Total Bilirubin AST ALT Alkaline Phosphatase NT-Pro-B Natriuret Pep 67 Total Protein Albumin Globulin Albumin/Globulin Ratio TSH Urine RBC Urine WBC Ur Squamous Epith Cells Urine Bacteria Ur Culture Indicated? U Random Total Protein 2753 H Urine Creatinine 103.3 Protein/Creatinin Ratio 26.65 Blood Type Antibody Screen Crossmatch
[2023-04-03 18:50] LABS: Add Manual Diff / Slide Review NO; Basophils Absolute Auto 0 /uL (0-100); Basophils Percent Auto 0.3 % (0-2); Eosinophils Absolute Auto 0 /uL (0-450); Eosinophils Percent Auto 0.3 % (2-4); Hematocrit 22.8 % (41-53); Hemoglobin 7.3 g/dL (13.5-17.5); Lymphocytes Absolute Auto 300 /uL (1100-4500); Lymphocytes Percent Auto 3.8 % (25-40); Mean Corpuscular HGB Conc 32.3 % (30-36); Mean Corpuscular Hemoglobin 29.3 PG (26-34); Mean Corpuscular Volume 90.8 fL (80-100); Monocytes Absolute Auto 100 /uL (0-900); Monocytes Percent Auto 0.9 % (3-14); Neutrophils Absolute Auto 6900 /uL (1500-7000); Neutrophils Percent Auto 94.7 % (50-75); Platelet Count 275 X10^3/uL (150-400); Red Blood Cell Count 2.51 X10^6/uL (4.5-5.9); Red Cell Distribution Width 16.5 % (11.6-14.8); White Blood Cell Count 7.3 X10^3/uL (4.5-11.0)
[2023-04-03] MEDS: fentaNYL 1,000 MCG in DEXTROSE 5% IN WATER 230 ML 17.343 MCG IV (18:54)
[2023-04-03 19:03] LABS: Alanine Aminotransferase 24 IU/L (<50); Albumin 3.3 g/dL (3.5-5.0); Albumin Globulin Ratio 1.3 (1.0-2.8); Alkaline Phosphatase 65 U/L (38-126); Aspartate Aminotransferase 50 IU/L (17-59); BUN Creatinine Ratio 20.5 (6-22); Bilirubin Total 1.2 mg/dL (0.2-1.3); Blood Urea Nitrogen 17 mg/dL (9-20); Calcium 8.6 mg/dL (8.4-10.2); Carbon Dioxide 33 mmol/L (22-32); Chloride 96 mmol/L (98-107); Estimated Glomerular Filt Rate > 60 mL/min (>60); Globulin 2.5 g/dL (1.7-4.1); Glucose 173 mg/dL (80-110); HEMOLYSIS 44 (0-50); Potassium 4.4 mmol/L (3.4-5.1); Sodium 136 mmol/L (137-145); Total Protein 5.8 g/dL (6.3-8.2)
[2023-04-03 19:04] LABS: Lactate (Lactic Acid) 1.5 mmol/L (0.7-2.1)
--- NOTE | 2023-04-03 19:05 | SUR.PHASEI ---
1800: Patient transported to ICU room 230 with Anesthesiologist and OR nurse on cardiac transport monitor; patient directly to ICU due to failure to be able to extubate patient after surgery. Bedside report given to JOSEPHINE Donovan.
--- NOTE | 2023-04-03 19:07 | PC.NURSE ---
1750 pt arrived per bed from OR intubated, bagged per anesthesiology. Wrist restraints applied, connected to library monitor. Pt awake and respinding to commands, MAEW. Propofol infusion initiated after speaking with tele medical assistant float. Franklin to strait drainage with clear yellow drainage. OG tube inserted and position verified per KUB. fentanyl drip initiated @ 1900,
[2023-04-03 19:15] LABS: Troponin I 0.013 ng/mL (0.01-0.034)
[2023-04-03] MEDS: dexmedeTOMIDine in 0.9 % NaCL 400 MCG/100 ML PLAST..BAG 9.91 MCG IV (19:48)
[2023-04-03 19:52] LABS: HCO3 ABG 29 mmol/L (23-27); PCO2 ABG 33.8 mmHg (35-45); PO2 ABG 53 mmHg (80-100); pH ABG 7.54 (7.35-7.45)
[2023-04-03 19:53] LABS: Fractionated Inspired Oxygen 30; Oxygen Saturation ABG 91 % (95-100); TCO2 ABG 30 mmol/L (23-27)
[2023-04-03 20:20] LABS: Hematocrit 22.9 % (41-53); Hemoglobin 7.5 g/dL (13.5-17.5)
[2023-04-03 20:32] LABS: INR 1.1 (0.9-1.3); Prothrombin Time 12.9 SECONDS (9.4-12.5)
[2023-04-03] MEDS: FAMOTIDINE 20 MG/2 ML VIAL IV (21:06)
[2023-04-04] VITALS (58 sets, daily range): BP systolic 97–150; BP diastolic 50–84; PULSE 52–95; RESP 9–35; TEMP 31–37.2; O2SAT 90–100
[2023-04-04] MEDS: CHLORHEXIDINE GLUCONATE 15 ML CUP PO ×2 (00:28→06:00)
--- NOTE | 2023-04-04 01:07 | PC.NURSE ---
0000- Daughter Criselda here to see patient. Updated on condition and all questions answered. Patient resting quietly. Family will return in the AM. Will monitor.
[2023-04-04 01:52] LABS: Hematocrit 23.3 % (41-53); Hemoglobin 7.8 g/dL (13.5-17.5)
[2023-04-04] MEDS: dexmedeTOMIDine in 0.9 % NaCL 400 MCG/100 ML PLAST..BAG 9.91 MCG IV (05:22)
[2023-04-04] MEDS: fentaNYL 1,000 MCG in DEXTROSE 5% IN WATER 230 ML 22.298 MCG IV (05:28)
[2023-04-04 05:34] LABS: PCO2 ABG 29.3 mmHg (35-45); PO2 ABG 54 mmHg (80-100)
[2023-04-04 05:35] LABS: Fractionated Inspired Oxygen 21; HCO3 ABG 30 mmol/L (23-27); Oxygen Saturation ABG 93 % (95-100); TCO2 ABG 31 mmol/L (23-27); pH ABG 7.62 (7.35-7.45)
[2023-04-04 06:13] LABS: Add Manual Diff / Slide Review NO; Basophils Absolute Auto 0 /uL (0-100); Basophils Percent Auto 0.2 % (0-2); Eosinophils Absolute Auto 0 /uL (0-450); Eosinophils Percent Auto 0.6 % (2-4); Hematocrit 22.4 % (41-53); Hemoglobin 7.5 g/dL (13.5-17.5); Lymphocytes Absolute Auto 500 /uL (1100-4500); Lymphocytes Percent Auto 6.8 % (25-40); Mean Corpuscular HGB Conc 33.5 % (30-36); Mean Corpuscular Hemoglobin 29.9 PG (26-34); Mean Corpuscular Volume 89.4 fL (80-100); Monocytes Absolute Auto 500 /uL (0-900); Neutrophils Absolute Auto 6700 /uL (1500-7000); Neutrophils Percent Auto 86.4 % (50-75); Platelet Count 254 X10^3/uL (150-400); Red Cell Distribution Width 16.5 % (11.6-14.8); White Blood Cell Count 7.7 X10^3/uL (4.5-11.0)
[2023-04-04 06:24] LABS: BUN Creatinine Ratio 23.9 (6-22); Blood Urea Nitrogen 21 mg/dL (9-20); Calcium 8.9 mg/dL (8.4-10.2); Carbon Dioxide 33 mmol/L (22-32); Chloride 96 mmol/L (98-107); Estimated Glomerular Filt Rate > 60 mL/min (>60); Glucose 189 mg/dL (80-110); HEMOLYSIS 17 (0-50); Potassium 4.5 mmol/L (3.4-5.1); Sodium 134 mmol/L (137-145)
--- NOTE | 2023-04-04 07:13 | PM.PN.1 ---
Subjective Subjective Interval history: 73 yo male w/prostate cancer s/p brachytherapy, radiation cystitis x the past 9 mos, DM2, COPD, Chronic hypoxic resp failure on nocturnal BiPAP who was admitted w/ongoing urinary obstruction d/t hematuria/bladder clot and acute on chronic blood loss anemia. He underwent cystoscopy on 04/03/23 and had clot evacuation as well as a resection of a bladder neoplasm. Post-op he was not able to be successfully extubated and transferred to the ICU. Patient is calm and cooperative this morning. He denies any shortness of breath. He is denying chest pain. No abdominal pain. Exam Vital Signs (past 8 hours): - 04/03/23 15:11 04/03/23 18:54 04/03/23 18:54 Temperature 99.4 F Pulse Rate 73 66 Respiratory Rate 16 12 Blood Pressure 118/71 97/69 Pulse Oximetry 93 94 Oxygen Delivery Method Nasal Cannula Oxygen Flow Rate 3 Fraction of Inspired Oxygen 04/03/23 18:57 04/03/23 19:00 04/03/23 19:00 Temperature 97.7 F Pulse Rate 71 67 Respiratory Rate 20 21 Blood Pressure 98/49 L 98/59 L Pulse Oximetry 93 93 Oxygen Delivery Method Oxygen Flow Rate Fraction of Inspired Oxygen 30 04/03/23 19:27 04/03/23 19:27 04/03/23 19:30 Temperature Pulse Rate 72 68 Respiratory Rate 15 18 Blood Pressure 98/72 Pulse Oximetry 94 93 Oxygen Delivery Method Oxygen Flow Rate Fraction of Inspired Oxygen 04/03/23 19:30 04/03/23 20:00 04/03/23 20:00 Temperature 96.3 F L Pulse Rate 67 Respiratory Rate 18 Blood Pressure 101/55 L 98/54 L Pulse Oximetry 94 Oxygen Delivery Method Oxygen Flow Rate Fraction of Inspired Oxygen Fraction of Inspired Oxygen 30 Oxygen Delivery Method Nasal Cannula Oxygen Flow Rate 3 Narrative Exam Narrative: GEN: Intubated elderly male, Alert and oriented x 3, NAD, following commands HEENT:NC, Face symmetric CHEST: Respiratory excursions symmetric, coarse and diminished but CTAB CV: Mildly bradycardic with regular rhythm, no M/R/G ABD: Soft, mildly diffusely tender, nondistended, BT present but hypoactive in all 4 quadrants, no organomegaly or masses EXTR: warm, well perfused, no C/C, 2+ edema to the right lower extremity, 1+ to the left lower extremity SKIN: warm and dry, no rash NEURO: Alert and oriented x 3, nonfocal Objective Labs 04/04/23 17:13 04/04/23 06:00 Labs: Laboratory Results - last 24 hr 04/02/23 04/02/23 04/02/23 21:22 22:25 22:55 WBC 8.2 RBC 2.04 L Hgb 6.0 L* Hct 19.2 L* MCV 93.9 MCH 29.4 MCHC 31.3 RDW 17.7 H Plt Count 354 Neut % (Auto) 77.4 H Lymph % (Auto) 12.3 L [place] % (Auto) 7.6 Eos % (Auto) 2.0 Baso % (Auto) 0.7 Neut # (Auto) 6400 Lymph # (Auto) 1000 L [place] # (Auto) 600 Eos # (Auto) 200 Baso # (Auto) 100 RBC Morphology See below Polychromasia 1+ H Anisocytosis 1+ H Microcytosis 1+ H Schistocytes 1+ H ABG pH ABG pCO2 ABG pO2 ABG HCO3 ABG Total CO2 ABG O2 Saturation ABG Base Excess FiO2 Sodium 137 Potassium 4.9 Chloride 97 L Carbon Dioxide 34 H BUN 21 H Creatinine 0.85 Estimated GFR > 60 BUN/Creatinine Ratio 24.7 H Glucose 150 H Lactate Calcium 9.0 Magnesium Total Bilirubin 0.7 AST 44 ALT 21 Alkaline Phosphatase 68 Troponin I NT-Pro-B Natriuret Pep Total Protein 7.4 Albumin 4.1 Globulin 3.3 Albumin/Globulin Ratio 1.2 TSH Urine RBC >100/hpf H Urine WBC 1-5/hpf Ur Squamous Epith Cells None seen Urine Bacteria Few (2-10) H Ur Culture Indicated? Specimen cultured U Random Total Protein Urine Creatinine Protein/Creatinin Ratio Blood Type O Positive Antibody Screen Negative Crossmatch See Detail 04/03/23 04/03/23 04/03/23 05:25 07:24 07:42 WBC 6.7 RBC 2.24 L Hgb 6.6 L* Hct 20.6 L* MCV 92.0 MCH 29.7 MCHC 32.2 RDW 16.5 H Plt Count 281 Neut % (Auto) 73.6 Lymph % (Auto) 14.7 L [place] % (Auto) 8.9 Eos % (Auto) 2.5 Baso % (Auto) 0.3 Neut # (Auto) 4900 Lymph # (Auto) 1000 L [place] # (Auto) 600 Eos # (Auto) 200 Baso # (Auto) 0 RBC Morphology Polychromasia Anisocytosis Microcytosis Schistocytes ABG pH ABG pCO2 ABG pO2 ABG HCO3 ABG Total CO2 ABG O2 Saturation ABG Base Excess FiO2 Sodium 139 Potassium 4.4 Chloride 99 Carbon Dioxide 38 H BUN 19 Creatinine 0.87 Estimated GFR > 60 BUN/Creatinine Ratio 21.8 Glucose 131 H Lactate Calcium 8.6 Magnesium 2.1 Total Bilirubin 0.8 AST 29 ALT 19 Alkaline Phosphatase 61 Troponin I NT-Pro-B Natriuret Pep Total Protein 6.4 Albumin 3.5 Globulin 2.9 Albumin/Globulin Ratio 1.2 TSH 3.15 Urine RBC Urine WBC Ur Squamous Epith Cells Urine Bacteria Ur Culture Indicated? U Random Total Protein Urine Creatinine Protein/Creatinin Ratio Blood Type Antibody Screen Crossmatch 04/03/23 04/03/23 04/03/23 08:14 12:17 14:59 WBC RBC Hgb 7.5 L Hct MCV MCH MCHC RDW Plt Count Neut % (Auto) Lymph % (Auto) [place] % (Auto) Eos % (Auto) Baso % (Auto) Neut # (Auto) Lymph # (Auto) [place] # (Auto) Eos # (Auto) Baso # (Auto) RBC Morphology Polychromasia Anisocytosis Microcytosis Schistocytes ABG pH ABG pCO2 ABG pO2 ABG HCO3 ABG Total CO2 ABG O2 Saturation ABG Base Excess FiO2 Sodium Potassium Chloride Carbon Dioxide BUN Creatinine Estimated GFR BUN/Creatinine Ratio Glucose Lactate Calcium Magnesium Total Bilirubin AST ALT Alkaline Phosphatase Troponin I NT-Pro-B Natriuret Pep 67 Total Protein Albumin Globulin Albumin/Globulin Ratio TSH Urine RBC Urine WBC Ur Squamous Epith Cells Urine Bacteria Ur Culture Indicated? U Random Total Protein 2753 H Urine Creatinine 103.3 Protein/Creatinin Ratio 26.65 Blood Type Antibody Screen Crossmatch 04/03/23 04/03/23 04/03/23 16:45 19:00 20:00 WBC 7.3 RBC 2.51 L Hgb 7.3 L 7.5 L Hct 22.8 L 22.9 L MCV 90.8 MCH 29.3 MCHC 32.3 RDW 16.5 H Plt Count 275 Neut % (Auto) 94.7 H D Lymph % (Auto) 3.8 L [place] % (Auto) 0.9 L Eos % (Auto) 0.3 L Baso % (Auto) 0.3 Neut # (Auto) 6900 Lymph # (Auto) 300 L [place] # (Auto) 100 Eos # (Auto) 0 Baso # (Auto) 0 RBC Morphology Polychromasia Anisocytosis Microcytosis Schistocytes ABG pH 7.54 H ABG pCO2 33.8 L ABG pO2 53 L ABG HCO3 29 H ABG Total CO2 30 H ABG O2 Saturation 91 L ABG Base Excess 6.0 H FiO2 30 Sodium 136 L Potassium 4.4 Chloride 96 L Carbon Dioxide 33 H BUN 17 Creatinine 0.83 Estimated GFR > 60 BUN/Creatinine Ratio 20.5 Glucose 173 H Lactate 1.5 Calcium 8.6 Magnesium Total Bilirubin 1.2 AST 50 ALT 24 Alkaline Phosphatase 65 Troponin I 0.013 NT-Pro-B Natriuret Pep Total Protein 5.8 L Albumin 3.3 L Globulin 2.5 Albumin/Globulin Ratio 1.3 TSH Urine RBC Urine WBC Ur Squamous Epith Cells Urine Bacteria Ur Culture Indicated? U Random Total Protein Urine Creatinine Protein/Creatinin Ratio Blood Type Antibody Screen Crossmatch [facility] Medical History Franklin catheter present History of hyperbaric oxygen therapy Essential hypertension History of brachytherapy History of prostate cancer Depression Non-STEMI (non-ST elevated myocardial infarction) (~11/2011) Type 2 diabetes mellitus COPD (chronic obstructive pulmonary disease) Obstructive sleep apnea of adult Social History household members: children Smoking Status: Former smoker Assessment & Plan Assessment & Plan narrative: 1. Acute on chronic hypoxic respiratory failure Improving overall. Anticipate he may be able to extubate later this morning. 2. Hematuria d/t bladder clot and bladder tumor Urine has significantly cleared. No evidence of ongoing hematuria after bladder tumor resection 3. Bladder tumor [place] to be likely malignant. Margins were not fully excise. He will need follow-up with his usual urologist Dr. Soares. 4. Acute on chronic blood loss anemia Hemoglobin was down to 6.6 on admission. He did receive transfusion with overall improvement up to 7.8. This morning his hemoglobin is 7.5. Will transfuse if clinically indicated given his underlying coronary artery disease. However, he is presently asymptomatic 5. DM2 Blood sugars are fairly well controlled overall ranging from 134-189. Continue fingersticks and sliding scale. 6. CAD Presently asymptomatic. 7. COPD Presently asymptomatic. 8. Prostate cancer s/p brachtherapy Outpatient follow-up with Urology. Code status Full Prophy Chemical prophy contraindicated in the setting of hematuria Dispo Intensive care unit
[2023-04-04] MEDS: FAMOTIDINE 20 MG/2 ML VIAL IV (08:27)
--- NOTE | 2023-04-04 10:08 | PM.PN.EICU ---
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 obtained for tele-live truck operator care: Yes Patient Location: ICU Provider location (State): [place] Other participants/roles: RN Interval history: pt itnuabtged this AM, he is awake and following commands, switched to PSV during my eval Current Medications Current Medications Medications: Home Medications bupropion HCl 200 mg tablet,12 hr sustained-release (Wellbutrin SR) 150 mg PO Q DAY ##0 12/20/11 [History Confirmed 04/03/23] atorvastatin 20 mg tablet 20 mg PO BEDTIME 04/09/22 [History Confirmed 04/03/23] glipizide 10 mg tablet, extended release 24 hr 10 mg PO DAILY 04/09/22 [History Confirmed 04/03/23] finasteride 5 mg tablet 5 mg PO DAILY #30 tabs 04/14/22 [Rx Confirmed 04/03/23] metformin 1,000 mg tablet 1,000 mg PO BID 05/15/22 [History Confirmed 04/03/23] multivitamin 1 tab PO DAILY 05/15/22 [History Confirmed 04/03/23] hydrochlorothiazide 12.5 mg tablet 12.5 mg PO DAILY 06/20/22 [History Confirmed 04/03/23] losartan 50 mg tablet 50 mg PO DAILY 06/20/22 [History Confirmed 04/03/23] Visit Medications (administered) Generic Name Dose Route Start Last Admin Trade Name Freq PRN Reason Stop Dose Admin Chlorhexidine Gluconate 15 ml 04/03/23 18:00 04/04/23 06:00 Chlorhexidine Gluconate 15 Ml Cup PO 15 ml Q6HR FELTON Administration Famotidine 20 mg 04/03/23 21:00 04/04/23 08:27 Famotidine 20 Mg/2 Ml Vial IV 20 mg BID FELTON Administration Fentanyl 1,000 mcg/ Dextrose 250 mls @ 17.343 mls/hr 04/03/23 18:00 04/04/23 05:28 IV 0.9 mcg/kg/hr TITRATE FELTON 22.298 mls/hr Administration Protocol 0.7 MCG/KG/HR Propofol 1,000 mg in 100 mls @ 2.973 mls/hr 04/03/23 18:00 04/03/23 22:00 Propofol IV 5 mcg/kg/min TITRATE FELTON 2.973 mls/hr Titration Protocol 5 MCG/KG/MIN dexmedeTOMIDine in 0.9 % NaCL 400 mcg in 100 mls @ 4.955 mls/hr 04/03/23 18:30 04/04/23 05:22 Precedex IV 0.4 mcg/kg/hr TITRATE FELTON 9.91 mls/hr Administration 0.2 MCG/KG/HR Objective Ventilator Parameters: Ventilator Settings FiO2 21 RT Vent Frequency 12 Ventilator Tidal Volume 500 Exhaled Positive End Expiratory 5 Pressure Inspiratory Phase Time 0.90 I:E Ratio 1:4.0 Patient Position HOB >= 30 degrees Labs 04/04/23 06:00 04/04/23 06:00 Labs: Laboratory Results - last 24 hr 04/02/23 04/03/23 04/03/23 22:25 12:17 14:59 WBC RBC Hgb 7.5 L Hct MCV MCH MCHC RDW Plt Count Neut % (Auto) Lymph % (Auto) [place] % (Auto) Eos % (Auto) Baso % (Auto) Neut # (Auto) Lymph # (Auto) [place] # (Auto) Eos # (Auto) Baso # (Auto) PT INR ABG pH ABG pCO2 ABG pO2 ABG HCO3 ABG Total CO2 ABG O2 Saturation ABG Base Excess FiO2 Sodium Potassium Chloride Carbon Dioxide BUN Creatinine Estimated GFR BUN/Creatinine Ratio Glucose Lactate Calcium Total Bilirubin AST ALT Alkaline Phosphatase Troponin I NT-Pro-B Natriuret Pep 67 Total Protein Albumin Globulin Albumin/Globulin Ratio Blood Type O Positive Antibody Screen Negative Crossmatch See Detail 04/03/23 04/03/23 04/03/23 16:45 19:00 20:00 WBC 7.3 RBC 2.51 L Hgb 7.3 L 7.5 L Hct 22.8 L 22.9 L MCV 90.8 MCH 29.3 MCHC 32.3 RDW 16.5 H Plt Count 275 Neut % (Auto) 94.7 H D Lymph % (Auto) 3.8 L [place] % (Auto) 0.9 L Eos % (Auto) 0.3 L Baso % (Auto) 0.3 Neut # (Auto) 6900 Lymph # (Auto) 300 L [place] # (Auto) 100 Eos # (Auto) 0 Baso # (Auto) 0 PT 12.9 H INR 1.1 ABG pH 7.54 H ABG pCO2 33.8 L ABG pO2 53 L ABG HCO3 29 H ABG Total CO2 30 H ABG O2 Saturation 91 L ABG Base Excess 6.0 H FiO2 30 Sodium 136 L Potassium 4.4 Chloride 96 L Carbon Dioxide 33 H BUN 17 Creatinine 0.83 Estimated GFR > 60 BUN/Creatinine Ratio 20.5 Glucose 173 H Lactate 1.5 Calcium 8.6 Total Bilirubin 1.2 AST 50 ALT 24 Alkaline Phosphatase 65 Troponin I 0.013 NT-Pro-B Natriuret Pep Total Protein 5.8 L Albumin 3.3 L Globulin 2.5 Albumin/Globulin Ratio 1.3 Blood Type Antibody Screen Crossmatch 04/04/23 04/04/23 04/04/23 01:40 05:00 06:00 WBC 7.7 RBC 2.50 L Hgb 7.8 L 7.5 L Hct 23.3 L 22.4 L MCV 89.4 MCH 29.9 MCHC 33.5 RDW 16.5 H Plt Count 254 Neut % (Auto) 86.4 H Lymph % (Auto) 6.8 L [place] % (Auto) 6.0 Eos % (Auto) 0.6 L Baso % (Auto) 0.2 Neut # (Auto) 6700 Lymph # (Auto) 500 L [place] # (Auto) 500 Eos # (Auto) 0 Baso # (Auto) 0 PT INR ABG pH 7.62 H* ABG pCO2 29.3 L ABG pO2 54 L ABG HCO3 30 H ABG Total CO2 31 H ABG O2 Saturation 93 L ABG Base Excess 9.0 H FiO2 21 Sodium 134 L Potassium 4.5 Chloride 96 L Carbon Dioxide 33 H BUN 21 H Creatinine 0.88 Estimated GFR > 60 BUN/Creatinine Ratio 23.9 H Glucose 189 H Lactate Calcium 8.9 Total Bilirubin AST ALT Alkaline Phosphatase Troponin I NT-Pro-B Natriuret Pep Total Protein Albumin Globulin Albumin/Globulin Ratio Blood Type Antibody Screen Crossmatch Exam Vital Signs (past 8 hours): - 04/04/23 02:30 04/04/23 02:30 04/04/23 03:00 Temperature Pulse Rate 59 L 59 L Respiratory Rate 16 16 Blood Pressure 109/56 L Pulse Oximetry 99 99 Oxygen Delivery Method 04/04/23 03:00 04/04/23 03:30 04/04/23 03:30 Temperature Pulse Rate 60 Respiratory Rate 16 Blood Pressure 110/55 L 104/58 L Pulse Oximetry 100 Oxygen Delivery Method 04/04/23 04:00 04/04/23 04:00 04/04/23 04:00 Temperature 96.8 F L Pulse Rate 57 L Respiratory Rate 16 Blood Pressure 105/58 L Pulse Oximetry 100 Oxygen Delivery Method Mechanical Ventilation 04/04/23 04:30 04/04/23 04:30 04/04/23 05:00 Temperature Pulse Rate 60 57 L Respiratory Rate 16 16 Blood Pressure 103/58 L Pulse Oximetry 98 96 Oxygen Delivery Method 04/04/23 05:00 04/04/23 05:30 04/04/23 05:30 Temperature Pulse Rate 56 L Respiratory Rate 12 Blood Pressure 102/59 L 110/59 L Pulse Oximetry 98 Oxygen Delivery Method 04/04/23 06:00 04/04/23 06:00 04/04/23 06:30 Temperature Pulse Rate 55 L Respiratory Rate 12 Blood Pressure 101/54 L 98/51 L Pulse Oximetry 99 Oxygen Delivery Method 04/04/23 06:30 04/04/23 07:00 04/04/23 07:00 Temperature Pulse Rate 55 L 53 L Respiratory Rate 12 12 Blood Pressure 100/54 L Pulse Oximetry 98 100 Oxygen Delivery Method 04/04/23 07:30 04/04/23 07:30 04/04/23 08:00 Temperature Pulse Rate 55 L 53 L Respiratory Rate 12 12 Blood Pressure 106/59 L Pulse Oximetry 98 97 Oxygen Delivery Method 04/04/23 08:00 04/04/23 08:00 04/04/23 08:30 Temperature Pulse Rate 52 L Respiratory Rate 12 Blood Pressure 102/50 L Pulse Oximetry 99 Oxygen Delivery Method Mechanical Ventilation 04/04/23 08:30 04/04/23 09:00 04/04/23 09:00 Temperature Pulse Rate 52 L Respiratory Rate 12 Blood Pressure 100/56 L 102/55 L Pulse Oximetry 99 Oxygen Delivery Method 04/04/23 09:30 04/04/23 09:33 04/04/23 09:33 Temperature Pulse Rate 60 59 L Respiratory Rate 18 13 Blood Pressure 97/55 L Pulse Oximetry 98 97 Oxygen Delivery Method Fraction of Inspired Oxygen 30 Oxygen Delivery Method Mechanical Ventilation Oxygen Flow Rate 3 Narrative Exam Narrative: intubated/ awake thoguh Resp Other: synchronous with vent Cardio Other: rate controlled Assessment & Plan Assessment and plan (1) Hematuria: Status: Acute (2) Type 2 diabetes mellitus: Qualifiers: 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 mellitus extermination supervisor insulin use: with shelter use Diabetes mellitus complication status: without complication Qualified Code(s): E11.9 - Type 2 diabetes mellitus without complications; Z79.4 - 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
--- NOTE | 2023-04-04 10:51 | PC.NURSE ---
Addendum entered by Madina Kaiser R.N. 04/04/23 19:26: Pt on BiPAP resting comfortably. UOP maintained >30ml/hr, O2 sats >90. Pt and family member able to speak with urologist regarding surgery. VS WNL Addendum entered by Madina Kaiser R.N. 04/04/23 13:23: Flushed urinary catheter and bladder scanned - 81. Notified urologist about possible clot visualized within catheter. Provider said to continue to monitor and flush [place] 30-60ml PRN. Extubated to BiPAP at 1225 with RT. Family and patient provided information that pt normally wears BiPAP at home. Provider notified. Original Note: Spoke with provider to let her know that that pt's UOP had slowed over the last couple hours. Will continue to monitor UOP.
[2023-04-04] MEDS: FUROSEMIDE 40 MG/4 ML VIAL IV (11:10)
--- NOTE | 2023-04-04 13:08 | CM.DPC ---
DCP Cont: Patient is currently intubated, but was able to meet with patient's daughter, Criselda Velasquez, who is a nurse, resides on [place], and is POA. She has paperwork which she will bring. Patient is currently intubated. Confirmed that patient does reside alone, has had concerns about him living alone. Stated, it is hard for him to get around at times. Brought in the [employer] [facility], discussed home health as well as private caregiver agencies, as daughter stated, he most likely will want to go home versus going to an assisted living facility. There is also a possibility that he may need fdc as well. Patient does have assistance with Meals on Wheels, according to daughter. Did initiate a face to face, should home be the plan, but will need to also go over with patient when able to discuss. Patient may also need to see P.T. when medically stable. P: DCP to continue to follow closely. Patient is currently intubated, will need to be more medically stable to discuss home health versus skilled, should he need this. Mariaelena Barreto RN/Director Of Critical Care
--- NOTE | 2023-04-04 15:15 | DI.ECHO.S_ITS ---
[facility] +---------+ [facility] +---------+ : : [address] : : : : [id number] : : : : Phone: [phone]+ Echocardiogram Report + + :Name: JOCELYNE QUINTANA Study Date: 04/04/2023 Height: 66 in : :[facility] ReadingLocation: Weight: 218 lb : : Gender: Male BSA: 2.1 m2 : :: 1950 Age: 73 yrs BP: 105/59 mmHg: :Reason For Study: Congestive Heart Failure : : Performed By: Peg Cottrell : :Referring: HELEN PANIAGUA : + + Interpretation Summary The study quality was technically difficult. A contrast injection of Definity was performed to improve assessment of LV function. Limited study. The left ventricle is normal in size and wall thickness. The left ventricular ejection fraction is normal. The ejection fraction is estimated to be 60-65%. The IVC is of normal diameter and collapses less than 50% with a sniff. This suggests a right atrial pressure of 8 mm Hg. Procedure: A two-dimensional transthoracic echocardiogram with color flow and Doppler was performed in limited views only to assess left ventricular function and wall motion. The study quality was technically difficult. A contrast injection of Definity was performed to improve assessment of LV function. Comparison is made with the echocardiogram of 06/30/2022. The patient was in normal sinus rhythm during the exam. Left Ventricle: The left ventricle is normal in size and wall thickness. The ejection fraction is estimated to be 60-65%. The left ventricular ejection fraction is normal. There are no obvious focal wall motion abnormalities noted but poor endocardial definition reduces the sensitivity for the detection of such. Diastolic parameters suggest a relaxation abnormality of the left ventricle, consistent with probable normal filling pressures. Right Ventricle: The right ventricle is not well visualized. Tricuspid Valve: Pulmonary artery pressures cannot be estimated because of the lack of a measurable TR jet velocity. Great Vessels: The IVC is of normal diameter and collapses less than 50% with a sniff. This suggests a right atrial pressure of 8 mm Hg. MMode/2D Measurements & Calculations LVIDd: 4.2 cm LA A2 area: 20.1 cm2 LVIDs: 3.0 cm LA A4 area: 19.1 cm2 FS: 30.2 % LA length (vol): 6.1 cm IVSd: 1.0 cm LA vol: 53.9 ml LVPWd: 1.0 cm LA vol index: 26.0 ml/m2 LV lazo. diameter/BSA (cm/m^2): 2.0 LV sys. diameter/BSA (cm/m^2): 1.4 IVC diam: 2.0 cm Doppler Measurements & Calculations MV E max donal: 76.4 cm/sec MV A max donal: 86.7 cm/sec MV E/A: 0.88 Med Peak E' Donal: 8.2 cm/sec E/E' med: 9.4 Lat Peak E' Donal: 10.9 cm/sec E/E' lat: 7.0 E/e' average: 8.2 MV dec time: 0.22 sec Reading Physician:04:35 PM
[2023-04-04] MEDS: INSULIN LISPRO 100 UNIT/ML 3ML VIAL SUBCUT ×2 (17:17→21:11)
[2023-04-04 17:22] LABS: Add Manual Diff / Slide Review NO; Basophils Absolute Auto 0 /uL (0-100); Basophils Percent Auto 0.3 % (0-2); Eosinophils Absolute Auto 0 /uL (0-450); Eosinophils Percent Auto 0.3 % (2-4); Hemoglobin 7.2 g/dL (13.5-17.5); Lymphocytes Absolute Auto 800 /uL (1100-4500); Lymphocytes Percent Auto 7.8 % (25-40); Mean Corpuscular HGB Conc 32.9 % (30-36); Mean Corpuscular Hemoglobin 29.9 PG (26-34); Mean Corpuscular Volume 91.1 fL (80-100); Monocytes Absolute Auto 900 /uL (0-900); Monocytes Percent Auto 8.5 % (3-14); Neutrophils Absolute Auto 9000 /uL (1500-7000); Neutrophils Percent Auto 83.1 % (50-75); Platelet Count 264 X10^3/uL (150-400); Red Blood Cell Count 2.42 X10^6/uL (4.5-5.9); Red Cell Distribution Width 17.1 % (11.6-14.8); White Blood Cell Count 10.8 X10^3/uL (4.5-11.0)
--- NOTE | 2023-04-04 20:00 | PM.ICURNDS ---
- Date Patient Seen: 04/04/23 Time Patient Seen: 20:00 :: This patient was seen via real time interactive two-way audiovisual telecommunication. Note: Patient extubated to BiPAP 15/5 FiO2 30% with no issues. Cont BiPAP overnight and will start weaning tomorrow. Hb 7.2. Trend CBC and transfuse for goal Hb >7.
[2023-04-05] VITALS (13 sets, daily range): BP systolic 90–174; BP diastolic 50–83; PULSE 64–96; RESP 15–27; TEMP 28–36.6; O2SAT 90–100
[2023-04-05 04:41] LABS: Add Manual Diff / Slide Review NO; Basophils Absolute Auto 0 /uL (0-100); Basophils Percent Auto 0.5 % (0-2); Eosinophils Absolute Auto 100 /uL (0-450); Eosinophils Percent Auto 1.2 % (2-4); Hematocrit 22.1 % (41-53); Hemoglobin 7.1 g/dL (13.5-17.5); Lymphocytes Absolute Auto 1200 /uL (1100-4500); Lymphocytes Percent Auto 13.2 % (25-40); Mean Corpuscular HGB Conc 32.4 % (30-36); Mean Corpuscular Hemoglobin 29.7 PG (26-34); Mean Corpuscular Volume 91.9 fL (80-100); Monocytes Absolute Auto 700 /uL (0-900); Monocytes Percent Auto 7.5 % (3-14); Neutrophils Absolute Auto 7000 /uL (1500-7000); Neutrophils Percent Auto 77.6 % (50-75); Platelet Count 246 X10^3/uL (150-400); Red Cell Distribution Width 16.7 % (11.6-14.8)
[2023-04-05 04:53] LABS: Blood Urea Nitrogen 26 mg/dL (9-20); Carbon Dioxide 37 mmol/L (22-32); Chloride 95 mmol/L (98-107); Estimated Glomerular Filt Rate > 60 mL/min (>60); Glucose 125 mg/dL (80-110); Sodium 136 mmol/L (137-145)
[2023-04-05 04:55] LABS: Calcium 8.3 mg/dL (8.4-10.2); HEMOLYSIS < 15 (0-50); Potassium 3.8 mmol/L (3.4-5.1)
--- NOTE | 2023-04-05 06:31 | PC.NURSE ---
0600- Patient has rested comfortably through the night. AM labs show elevation in CO2. Patient has had no c/o pain. Patient UOP was good with no hematuria (500cc). Patient did wear Bi-pap all night.
[2023-04-05] MEDS: MULTIVITAMIN 1 TABLET 1 TAB PO (12:18)
[2023-04-05] MEDS: buPROPion XL 150 MG TAB PO (12:18)
[2023-04-05] MEDS: INSULIN LISPRO 100 UNIT/ML 3ML VIAL SUBCUT (12:18)
--- NOTE | 2023-04-05 13:03 | P.DS_ITS ---
History of Present Illness History of Present Illness Chief complaint: urinary problems Narrative: From overnight physician: 73 year old with history of DM, COPD on oxygen, prostate cancer with brachytherapy, radiation cystitis x 9 months with persistent hematuria here with inability to urinate. He was told by his urologist to go to the ED when he found that he could not urinate. He has had a chronic cole but they removed 6- 8 weeks ago. He has hematuria daily with clots but could not pass urine today. He has spoken to the radiation oncologist who is aware of his issues. He denies fever, vomiting, diarrhea, changes in his breathing (he is on nightly BiPAP for significant COPD with 2-3 liters of O2 daily). He has noted increased swelling of his lower extremities recently and was noted to have significant pitting edema. He did not think his weight was increasing. He denies chest pain. A three way catheter was placed in the ED to clear his clots and remove the retention. His Hgb was noted to be 6.0 so he received a unit of PRBC in the ED. He has not required transfusion in the past. Discharge Providers Provider Date of admission: 04/02/23 23:21 Discharge Date: 04/05/23 Primary care physician: Sean Urbano MD Consults: 04/02/23 23:28 Consult to Physician Routine Comment: Consulting Provider: Anai Oliver Reason for consultation: hematuria Has provider been notified: No 04/03/23 07:43 Consult to Urology Routine Comment: Consulting Provider: Anai Oliver Reason for consultation: hemorrhagic cystitis 04/03/23 17:52 Consult to Dietitian, Adult Routine Comment: Reason For Exam: Patient on Ventilator and NPO 04/03/23 17:57 Consult to Tele-drive in waiter/waitress Routine Comment: Consulting Provider: Doug Tele-intensivists Reason for consultation: Supervisor [employer] services 04/05/23 11:25 Consult to Physical Therapy Evaluate & Treat Comment: Physician Instructions: Evaluate and Treat Discharge provider: Rodrigue Judge DO Summary Hospital Course Discharge Diagnosis: 1. Acute on chronic hypoxic respiratory failure Improving overall. Anticipate he may be able to extubate later this morning. 2. Hematuria d/t bladder clot and bladder tumor Urine has significantly cleared. No evidence of ongoing hematuria after bladder tumor resection. Pt will f/up with urology clinic for pathology results and further management. 3. Bladder tumor [place] to be likely malignant. Margins were not fully excise. He will need follow-up with his usual urologist Dr. Soares. 4. Acute on chronic blood loss anemia Hemoglobin was down to 6.6 on admission. He did receive transfusion with overall improvement up to 7.8. This morning his hemoglobin is 7.1 and another unit of PRBC given due to underlying CAD. Urine no longer has hematuria. 5. DM2 Blood sugars are fairly well controlled overall ranging from 134-189. Continue fingersticks and sliding scale. 6. CAD Presently asymptomatic. 7. COPD Presently asymptomatic. 8. Prostate cancer s/p brachytherapy Outpatient follow-up with Urology. Hospital Course: Admitted for gross hematuria and acute blood loss anemia with Hgb 6.6. Transfused with blood and underwent cystoscopy which found large 5cm bladder tumor. This was resected and pathology is pending. Patient had difficulty extubating in PACU so remained on vent overnight then was extubated successfuly the next dasy. He got another unit of blood after Hgb 7.1. Will f/up with urology clinic for path results and further management of bladder cancer. Exam Vital Signs (past 8 hours): - 04/05/23 05:41 04/05/23 06:10 04/05/23 08:44 Temperature 97.4 F L 97.1 F L Pulse Rate 64 80 Respiratory Rate 15 16 Blood Pressure 174/83 H 90/54 L Pulse Oximetry 99 Oxygen Delivery Method Oxygen Flow Rate Fraction of Inspired Oxygen 25 04/05/23 08:54 04/05/23 09:23 04/05/23 09:31 Temperature Pulse Rate Respiratory Rate Blood Pressure 93/54 L Pulse Oximetry 94 Oxygen Delivery Method BiPAP Nasal Cannula Oxygen Flow Rate 4 Fraction of Inspired Oxygen 32 04/05/23 09:42 04/05/23 09:57 04/05/23 11:07 Temperature 97.1 F L 97.5 F L Pulse Rate 82 81 78 Respiratory Rate 16 18 Blood Pressure 90/54 L 90/52 L 93/50 L Pulse Oximetry Oxygen Delivery Method Oxygen Flow Rate Fraction of Inspired Oxygen 04/05/23 12:00 04/05/23 12:04 Temperature 97.5 F L Pulse Rate 81 Respiratory Rate 16 Blood Pressure 107/55 L 96/50 L Pulse Oximetry Oxygen Delivery Method Oxygen Flow Rate Fraction of Inspired Oxygen 25 Fraction of Inspired Oxygen 25 Oxygen Delivery Method Nasal Cannula Oxygen Flow Rate 4 Narrative Exam Narrative: GEN: Alert and oriented x 3, NAD HEENT:NC, Face symmetric CHEST: Respiratory excursions symmetric, coarse and diminished but CTAB CV: Mildly bradycardic with regular rhythm, no M/R/G ABD: Soft, mildly diffusely tender, nondistended, BT present but hypoactive in all 4 quadrants, no organomegaly or masses EXTR: warm, well perfused, no C/C, 2+ edema to the right lower extremity, 1+ to the left lower extremity SKIN: warm and dry, no rash NEURO: Alert and oriented x 3, nonfocal Objective Labs 04/05/23 04:15 04/05/23 04:15 Labs: Laboratory Results - last 24 hr 04/02/23 04/04/23 04/05/23 22:25 17:13 04:15 WBC 10.8 9.0 RBC 2.42 L 2.40 L Hgb 7.2 L 7.1 L Hct 22.0 L 22.1 L MCV 91.1 91.9 MCH 29.9 29.7 MCHC 32.9 32.4 RDW 17.1 H 16.7 H Plt Count 264 246 Neut % (Auto) 83.1 H 77.6 H Lymph % (Auto) 7.8 L 13.2 L [place] % (Auto) 8.5 7.5 Eos % (Auto) 0.3 L 1.2 L Baso % (Auto) 0.3 0.5 Neut # (Auto) 9000 H 7000 Lymph # (Auto) 800 L 1200 [place] # (Auto) 900 700 Eos # (Auto) 0 100 Baso # (Auto) 0 0 Sodium 136 L Potassium 3.8 Chloride 95 L Carbon Dioxide 37 H BUN 26 H Creatinine 1.13 Estimated GFR > 60 BUN/Creatinine Ratio 23.0 H Glucose 125 H Calcium 8.3 L Blood Type O Positive Antibody Screen Negative Crossmatch See Detail [facility] Medical History Cole catheter present History of hyperbaric oxygen therapy Essential hypertension History of brachytherapy History of prostate cancer Depression Non-STEMI (non-ST elevated myocardial infarction) (~11/2011) Type 2 diabetes mellitus COPD (chronic obstructive pulmonary disease) Obstructive sleep apnea of adult Social History household members: children Smoking Status: Former smoker Discharge Plan Discharge Plan Patient Disposition: Home Provider Discharge Comment: You were admitted for bloody urine and anemia. Urology scoped you and found what is likely bladder cancer. You will need to follow-up with the urology office for the pathology results. Discharge orders & Medications Prescriptions: Continued bupropion HCl [Wellbutrin SR] 200 MG tablet extended release 12 hr 150 mg PO Q DAY Qty: 0 hydrochlorothiazide 12.5 mg tablet 12.5 mg PO DAILY Hold Instructions: hold until BP normalizes Patient Comments: PCP held losartan 50 mg tablet 50 mg PO DAILY Hold Instructions: 1/2 dose until BP normalizes atorvastatin 20 mg tablet 20 mg PO BEDTIME Patient Comments: TAKE ONE TABLET BY MOUTH ONE TIME DAILY glipizide 10 mg tablet extended release 24hr 10 mg PO DAILY Patient Comments: TAKE ONE TABLET BY MOUTH ONE TIME DAILY metformin 1,000 mg tablet 1,000 mg PO BID multivitamin Tablet 1 tab PO DAILY finasteride 5 mg tablet 5 mg PO DAILY Qty: 30 0RF Follow up/Referrals: Sean Urbano MD [Primary Care Provider] - Luigi Soares MD [Physician] - 1 Week Visit Report/Discharge Packet Stand Alone Forms: Patient Portal/API, Stroke Signs & Symptoms Discharge Data Primary Care Provider: Sean Urbano
--- NOTE | 2023-04-05 14:23 | PT.IIE ---
Current Diagnoses Acute posthemorrhagic anemia (04/02/23) Anemia, unspecified (04/02/23) Type 2 diabetes mellitus without complications (04/02/23) Centrilobular emphysema (04/02/23) Acute respiratory failure, unspecified whether with hypoxia or hypercapnia (04/02/23) Irradiation cystitis with hematuria (04/02/23) Gross hematuria (04/02/23) Hematuria, unspecified (04/02/23) jail (current) use of insulin (04/02/23) Surgery Performed Operation Date: 04/03/23 14:30 Actual Procedures p Cystoscopy, clot evacuation and Transurethral resection of large bladder tumor(Not Applicable) - Anai Oliver MD Medical History (Last Reviewed 04/03/23 @ 12:56 by Anai Oliver MD) COPD (chronic obstructive pulmonary disease) Depression Essential hypertension Franklin catheter present History of brachytherapy History of hyperbaric oxygen therapy History of prostate cancer Non-STEMI (non-ST elevated myocardial infarction) (~11/2011) Obstructive sleep apnea of adult Type 2 diabetes mellitus
--- NOTE | 2023-04-05 14:23 | PT.IIE ---
Current Diagnoses Acute posthemorrhagic anemia (04/02/23) Anemia, unspecified (04/02/23) Type 2 diabetes mellitus without complications (04/02/23) Centrilobular emphysema (04/02/23) Acute respiratory failure, unspecified whether with hypoxia or hypercapnia (04/02/23) Irradiation cystitis with hematuria (04/02/23) Gross hematuria (04/02/23) Hematuria, unspecified (04/02/23) [facility]DC (current) use of insulin (04/02/23) Surgery Performed Operation Date: 04/03/23 14:30 Actual Procedures p Cystoscopy, clot evacuation and Transurethral resection of large bladder tumor(Not Applicable) - Anai Oliver MD Medical History (Last Reviewed 04/03/23 @ 12:56 by Anai Oliver MD) COPD (chronic obstructive pulmonary disease) Depression Essential hypertension Franklin catheter present History of brachytherapy History of hyperbaric oxygen therapy History of prostate cancer Non-STEMI (non-ST elevated myocardial infarction) (~11/2011) Obstructive sleep apnea of adult Type 2 diabetes mellitus
--- NOTE | 2023-04-05 15:12 | CM.DPC ---
DCP Continued FUR POINTER reviewed EMR. Per provider, likely to dc today. Would benefit from PT eval. FUR POINTER placed PT eval order. FUR POINTER entered room and introduced self and role. Pt resting in chair. Pt eager to d/c home today. Pt reports son will stay with him. Pt hesitant about services, but after some education, agreed to [facility] for RN/PT/OT/FUR POINTER. Requested they call Dtr Criselda for scheduling. [place]. Pt interested in hiring a senior care caregiver and reported dtr got information from someone on our CM team about more caregiving information. Pt confirmed his PCP is Caitlin Zambrano at [facility]. FUR POINTER spoke with intake at [facility]. unable to review to accept or deny today, will let their intake team know of referral tomorrow. FUR POINTER placed consult order per provider. FUR POINTER emailed Ashlee at [facility] the initial ref information, with H&P, DC summary, and face sheet. FUR POINTER faxed face to face and order. FUR POINTER spoke with mian Aburto. Referred her to nursing team for medical questions. Agreeable to , will keep an eye out for [facility] to call her. FUR POINTER told RN of dtrs questions and suggested RN give her a call, RN agreeable. Plan: d/c home today with son and [facility] to follow, pending acceptance. CM team will continue to follow closely. KENTRELL Mejias
--- NOTE | 2023-04-05 16:22 | PC.NURSE ---
Discharge: Pt on Bipap, saturation 99%. Pt placed on NC 4L (states this is baseline). Tolerated meals. Ambulated in room with FWW and without. Pt education provided on stroke s/s, cole catheter care, fall prevention, follow up appointments. Pt agrees with plan of care, verbalizes understanding. IV d/c'd, telemetry removed. Pt wheeled via wheelchair to private vehicle with adult son and PCT at approximately 1600.
== END 2023-04-05 16:00 | disposition home or self-care (01) | DRG 653 ==
LOC: ED 23:21 → AC 04-03 07:46 → ICU 04-03 17:45
PROVIDERS: Internal Medicine; Specialist; Student in an Organized Health Care Education/Training Program; Admitting Provider Internal Medicine; Emergency Provider Emergency Medicine; PCP Student in an Organized Health Care Education/Training Program; Referring Provider Emergency Medicine; Visit Provider Internal Medicine
PROC: 0VT08ZZ Resection of Prostate, Via Natural or Artificial Opening Endoscopic (ICD-10-PCS; CPT 52601; principal; 2023-04-03 14:30)
DX: N30.41 Irradiation cystitis with hematuria (principal); J96.01 Acute respiratory failure with hypoxia; D62 Acute posthemorrhagic anemia; C61 Malignant neoplasm of prostate; E11.9 Type 2 diabetes mellitus without complications; J43.2 Centrilobular emphysema; J44.9 Chronic obstructive pulmonary disease, unspecified; N13.9 Obstructive and reflux uropathy, unspecified; I10 Essential (primary) hypertension; E78.5 Hyperlipidemia, unspecified; I25.10 Atherosclerotic heart disease of native coronary artery without angina pectoris; C67.9 Malignant neoplasm of bladder, unspecified; Z99.81 Dependence on supplemental oxygen; Z79.4 Long term (current) use of insulin; Z87.891 Personal history of nicotine dependence
CPT/HCPCS: 36415; 36430; 36600; 51702; 51798; 52235; 71045; 74177; 80048; 80053; 81015; 82570; 82805; 82962; 83605; 83735; 83880; 84156; 84443; 84484; 85014; 85018; 85025; 85610; 86850; 86900; 86901; 87086; 93307; 94002; 94003; 94660; 94762; 94799; 97161; 99232; 99285; 99291; P9016; J0131; J0330; J0690; J1100; J1815; J1940; J2310; J2405; J2704; J3010; Q9957; Q9967

== ENCOUNTER → 2023-04-24 10:36 | Outpatient (CLI) | payer MEDICARE, OTHER, SELFPAY ==
[2023-04-03 01:10] VITALS: BMI 35.2
[2023-04-04 09:58] VITALS: RESP 11
[2023-04-05 12:04] VITALS: PULSE 78; RESP 20; O2SAT 92
--- NOTE | 2023-04-24 10:38 | DI.CT.S_ITS ---
PROCEDURE: CT CHEST W CON INDICATIONS: Invasive bladder cancer TECHNIQUE: After the administration of intravenous contrast, 5 mm thick sections acquired from the pulmonary apices to the posterior costophrenic angles. 1 mm axial lung, 5 mm thick coronal and sagittal reformats and 7 mm axial MIP were acquired. For radiation dose reduction, the following was used: automated exposure control, adjustment of mA and/or kV according to patient size. COMPARISON: [facility], CT, CT CHEST W CON, 05/19/2022, 13:25. FINDINGS: Image quality: Diagnostic. Lower Neck: No enlarged lymph nodes. Thyroid: No thyroid nodules which require sonographic follow up, per consensus guidelines. Axillae: No enlarged lymph nodes. Chest Wall: Unremarkable. Bones: Unremarkable. Lungs and Pleura: No pneumothorax or pleural effusions. No consolidation or suspicious nodules. Platelike atelectasis, bilateral lung bases. Heart: Heart size is normal. No pericardial effusion. Thoracic Vessels: Stable 4.2 cm sending aortic aneurysm. Mediastinum and Jenna: No enlarged lymph nodes. Esophagus: No wall thickening. No hiatal hernia. Upper Abdomen: Visualized upper abdomen solid organs and bowel loops appear normal. IMPRESSION: 1. Stable mild aneurysmal dilatation of the ascending aorta, measuring 4.2 cm. 2. No evidence of metastatic disease in the chest. Dictated by: Balta Evans M.D. on 04/24/2023 at 20:11 Approved by: Balta Evans M.D. on 04/24/2023 at 20:14
== END ==
LOC: CT 10:37
PROVIDERS: PCP Family Medicine; Referring Provider Specialist; Visit Provider Specialist
DX: C67.9 Malignant neoplasm of bladder, unspecified (principal); I71.21 Aneurysm of the ascending aorta, without rupture; Z85.46 Personal history of malignant neoplasm of prostate
CPT/HCPCS: 71260

== ENCOUNTER → 2023-06-17 07:45 | Outpatient (CLI) | payer MEDICARE, OTHER, SELFPAY ==
[2023-04-03 01:10] VITALS: BMI 35.2
[2023-04-04 09:58] VITALS: RESP 11
[2023-04-05 12:04] VITALS: PULSE 78; RESP 20; O2SAT 92
[2023-06-17 08:44] LABS: Add Manual Diff / Slide Review NO; Basophils Absolute Auto 0 /uL (0-100); Basophils Percent Auto 0.4 % (0-2); Eosinophils Absolute Auto 200 /uL (0-450); Eosinophils Percent Auto 3.4 % (2-4); Hematocrit 32.1 % (41-53); Hemoglobin 10.8 g/dL (13.5-17.5); Lymphocytes Absolute Auto 1300 /uL (1100-4500); Lymphocytes Percent Auto 18.2 % (25-40); Mean Corpuscular HGB Conc 33.5 % (30-36); Mean Corpuscular Volume 86.6 fL (80-100); Monocytes Absolute Auto 600 /uL (0-900); Monocytes Percent Auto 8.6 % (3-14); Neutrophils Absolute Auto 4900 /uL (1500-7000); Neutrophils Percent Auto 69.4 % (50-75); Platelet Count 211 X10^3/uL (150-400); Red Blood Cell Count 3.71 X10^6/uL (4.5-5.9); Red Cell Distribution Width 14.8 % (11.6-14.8); White Blood Cell Count 7.1 X10^3/uL (4.5-11.0)
[2023-06-17 08:52] LABS: Hemoglobin A1C% w Est Avg Glu 6.8 % (4.0-6.0)
[2023-06-17 09:05] LABS: Alanine Aminotransferase 24 IU/L (<50); Albumin 4.3 g/dL (3.5-5.0); Albumin Globulin Ratio 1.1 (1.0-2.8); Alkaline Phosphatase 85 U/L (38-126); Aspartate Aminotransferase 29 IU/L (17-59); BUN Creatinine Ratio 23.1 (6-22); Bilirubin Total 0.6 mg/dL (0.2-1.3); Blood Urea Nitrogen 25 mg/dL (9-20); Calcium 9.3 mg/dL (8.4-10.2); Carbon Dioxide 38 mmol/L (22-32); Chloride 93 mmol/L (98-107); Estimated Glomerular Filt Rate > 60 mL/min (>60); Globulin 3.8 g/dL (1.7-4.1); Glucose 155 mg/dL (80-110); HEMOLYSIS < 15 (0-50); Potassium 4.5 mmol/L (3.4-5.1); Sodium 140 mmol/L (137-145); Total Protein 8.1 g/dL (6.3-8.2)
[2023-06-17 09:35] LABS: Prostate Specific Antigen 0.141 ng/mL (0.10-4.00)
== END ==
PROVIDERS: PCP Family Medicine; Referring Provider Radiology Radiation Oncology; Visit Provider Radiology Radiation Oncology
DX: C61 Malignant neoplasm of prostate (principal); E11.9 Type 2 diabetes mellitus without complications; B35.1 Tinea unguium
CPT/HCPCS: 36415; 80053; 83036; 84153; 85025

== ENCOUNTER → 2023-10-06 14:43 | Outpatient (CLI) | payer MEDICARE, OTHER, SELFPAY ==
[2023-04-03 01:10] VITALS: BMI 35.2
[2023-04-04 09:58] VITALS: RESP 11
[2023-04-05 12:04] VITALS: PULSE 78; RESP 20; O2SAT 92
== END ==
PROVIDERS: PCP Family Medicine; Visit Provider Family Medicine
DX: R10.2 Pelvic and perineal pain (principal)
CPT/HCPCS: 87086